=== PATIENT | male | born 1975 | race Caucasian/White ===

== ENCOUNTER 2016-11-25 13:20 | Emergency (ER) | payer OTHER ==
[~2016-11-25] VITALS: Ht 152.4 cm; Wt 56.7 kg
[~2016-11-25 13:20] MED LIST: DOCU100T5 PO; FERR-36 PO; LEVE10007 PO; OXCA300T3 PO; POLY255P PO; RANI150T2 PO; SENN-79 PO; [UNRECOGNIZED DRUG - CODE] PO
[2016-11-25 14:17] VITALS: BP 107/67
--- NOTE | 2016-11-25 14:23 | RAD ---
3 view right shoulder radiographs 11/25/2016 Clinical history: Right shoulder pain. Unknown injury. AP internal and external rotation and transscapular digital radiographs of the right shoulder were obtained. There is diffuse osteopenia of the visualized bony structures. No fracture or dislocation of the right shoulder is seen. Acute slightly comminuted fracture of the mid/distal diaphysis of the right clavicle is seen. The right AC joint is intact. The proximal fracture fragment is mildly displaced inferiorly. No additional fracture is seen. Impression: Acute fracture of the right clavicle as outlined above.
[2016-11-25] MEDS ORDERED: HYDROcodone/APAP 5/325MG 1 TAB TABLET PO ONE (14:30)
[2016-11-25] MEDS ORDERED: HYDR-971 PO (15:18)
--- NOTE | 2016-11-25 15:19 | PHYS DOC ---
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 Patient is not verbal. Review of Systems Review of Systems Constitutional: Denies fever or chills [] Musculoskeletal: right shoulder pain Integument: Denies rash or skin lesions [] Neurologic: Denies headache, focal weakness or sensory changes [] Current Medications Current Medications Current Medications Medications (Trade) Dose Ordered Sig/Mynor Start Time Stop Time Status Last Admin Dose Admin Acetaminophen/ Hydrocodone Bitart (Lortab 5/325) 1 tab 1X ONCE 11/25/16 14:30 11/25/16 14:31 DC 11/25/16 14:30 1 TAB Allergies Allergies Allergies Coded Allergies Type Severity Reaction Last Updated Verified No Known Drug Allergies 01/10/14 No Physical Exam Physical Exam Constitutional: Well developed, well nourished, no acute distress, non-toxic appearance. [] Skin: Warm, dry, no erythema, no rash. [] Back: No tenderness, no CVA tenderness. [] Extremities: Right shoulder appears obviously deformed. Patient is leaning over the right shoulder. Patient is also deformed naturally on the right upper extremity making the exam difficult. Neurovascular exam is normal to the right upper extremity. Cap refill less than 2 seconds the right fingers Neurologic: Alert and oriented X 3, normal motor function, normal sensory function, no focal deficits noted. [] Psychologic: Affect normal, judgement normal, mood normal. [] Current Patient Data Vital Signs Vital Signs Date Time Temp Pulse Resp B/P (MAP) Pulse Ox O2 Delivery O2 Flow Rate FiO2 11/25/16 14:17 98.3 90 20 97 Room Air 98.3 EKG EKG [] Radiology/Procedures Radiology/Procedures []PROCEDURE: SHOULDER 2+V RIGHT 3 view right shoulder radiographs 11/25/2016 Clinical history: Right shoulder pain. Unknown injury. AP internal and external rotation and transscapular digital radiographs of the right shoulder were obtained. There is diffuse osteopenia of the visualized bony structures. No fracture or dislocation of the right shoulder is seen. Acute slightly comminuted fracture of the mid/distal diaphysis of the right clavicle is seen. The right AC joint is intact. The proximal fracture fragment is mildly displaced inferiorly. No additional fracture is seen. Impression: Acute fracture of the right clavicle as outlined above. DICTATED and SIGNED BY: EDNA ESPINO MD DATE: 11/25/16 1413 CC: YVETTE WYNN APRN; NON,STAFF; ROBERTH HOYT MD ~ Course & Med Decision Making Course & Med Decision Making Pertinent Labs and Imaging studies reviewed. (See chart for details) Patient is in the ED with right shoulder pain from a senior living. It's unknown how he injured himself. Right shoulder x-rays interpreted by radiologist were noted for acute fracture of the right clavicle. Patient was placed in a sling. Instructed the caregiver to contact the orthopedic doctor tomorrow morning and set up a follow-up appointment. Discharged with [place]. López Disclaimer Dragon Disclaimer This electronic medical record was generated, in whole or in part, using a voice recognition dictation system. Departure Departure Impression: Primary Impression: Right clavicle fracture Disposition: HOME, SELF-CARE Condition: STABLE Referrals: ROBERTH HOYT MD (PCP) LAMBERTO SHEARER MD call him tomorrow and follow up Patient Instructions: Clavicle Fracture Additional Instructions: Phil has right clavicle fracture. Contact the provided orthopedic doctor tomorrow morning and set up a follow-up appointment for pain. You can ice and elevate the affected extremity as tolerated. Give him the prescribed pain medicine as ordered and needed for pain Scripts Hydrocodone/Apap 5-325 (NORCO 5-325 TABLET) 1 Each Tablet 1 TAB PO Q6HRS Y for PAIN, #20 TAB Prov: YVETTE WYNN APRN 11/25/16 Problem Qualifiers Primary Impression: Right clavicle fracture Encounter type: initial encounter Clavicle location: lateral end Fracture type: closed Fracture alignment: displaced Qualified Codes: S42.031A - Displaced fracture of lateral end of right clavicle, initial encounter for closed fracture YVETTE WYNN APRN Nov 25, 2016 15:18
== END 2016-11-25 15:28 | disposition home or self-care (01) ==
LOC: ER 13:20
DX: S42.031A Displaced fracture of lateral end of right clavicle, initial encounter for closed fracture (principal); G80.9 Cerebral palsy, unspecified; Z98.2 Presence of cerebrospinal fluid drainage device; X58.XXXA Exposure to other specified factors, initial encounter; Y93.89 Activity, other specified; Y92.89 Other specified places as the place of occurrence of the external cause; Y99.8 Other external cause status
CPT/HCPCS: 73030; 99284

== ENCOUNTER 2016-12-11 17:33 | Emergency (ER) | payer OTHER ==
[~2016-12-11] VITALS: Ht 154.9 cm; Wt 68.0 kg
[~2016-12-11 17:33] MED LIST changes: +HYDR-971 PO
--- NOTE | 2016-12-11 18:49 | PHYS DOC ---
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 Patient's care provider states he may have slid out. The patient did not appear to be in distress pain or discomfort. However, the patient was treated in the emergency department 2 weeks ago for clavicle fracture. History is limited due to the patient's verbal and cognitive impairment.[] Review of Systems Review of Systems Review symptoms as per history of present illness. Allergies Allergies Allergies Coded Allergies Type Severity Reaction Last Updated Verified No Known Drug Allergies 01/10/14 No Physical Exam Physical Exam Constitutional: No acute distress, quadraparesis with flexion contractures of all 4 extremities. [] HENT: Normocephalic, atraumatic, bilateral external ears normal, oropharynx moist, no oral exudates, nose normal. [] Eyes: PERRL. [] Neck: Normal range of motion. [] Cardiovascular:Heart rate regular rhythm. [] Lungs & Thorax: Patient's nonlabored, respirations are to auscultation bilaterally, no rales or wheezing, R lateral clavicle tenderness, no obvious displaced fracture, [] Abdomen: Bowel sounds normal, soft, no tenderness. [] Skin: Warm, dry. [] Extremities: Left and contractures, no deformities, swelling or bruising noted.[ ] Neurologic: Alert, quadriparesis. [] Current Patient Data Vital Signs Vital Signs Date Time Temp Pulse Resp B/P (MAP) Pulse Ox O2 Delivery O2 Flow Rate FiO2 12/11/16 18:08 97.5 57 18 112/59 (76) 97 Room Air 97.5 EKG EKG [] Radiology/Procedures Radiology/Procedures [Chest x-ray: Displaced right lateral clavicle fracture. No pneumothorax on preliminary ED read. Course & Med Decision Making Course & Med Decision Making Pertinent Labs and Imaging studies reviewed. (See chart for details) [No acute injury. Home safety instructions reviewed. ] Dragon Disclaimer Dragon Disclaimer This electronic medical record was generated, in whole or in part, using a voice recognition dictation system. Departure Departure Impression: Primary Impression: Right clavicle fracture Disposition: 01 HOME, SELF-CARE Condition: GOOD Referrals: ROBERTH HOYT MD (PCP) Patient Instructions: Clavicle Fracture Additional Instructions: No new injury was found on xray. A previously identified right clavicle fracture was present. Please follow up with your PCP as needed. Return to the ED if new or worsening symptoms. IVANNA GUADALUPE DO Dec 11, 2016 18:49
[2016-12-11 20:38] VITALS: BP 113/55
--- NOTE | 2016-12-12 08:34 | RAD ---
Portable chest, 12/11/2016: History: Fall, chest wall pain Comparison is made to a study from 01/10/2014. There is a tubing overlying the left side of the chest, probably representing a SUPER[employer] shunt tube. Clinical correlation is suggested. There is a moderate thoracolumbar scoliosis. The heart size and pulmonary vascularity are normal. A density at the cardiac apex is probably due to an epicardial fat pad. No acute infiltrate is seen. There is no evidence of pleural fluid or pneumothorax. There is a recent fracture of the distal right clavicle, not present on the previous study. The fracture is mildly displaced. IMPRESSION: 1. No acute cardiopulmonary abnormality is detected. 2. Recent right clavicular fracture. Note: The findings were called to personnel in the [facility] ER at 8:30 AM on 12/12/2016.
== END 2016-12-11 20:38 | disposition home or self-care (01) ==
LOC: ER 17:33
DX: S42.001A Fracture of unspecified part of right clavicle, initial encounter for closed fracture (principal); W05.0XXA Fall from non-moving wheelchair, initial encounter; Y93.89 Activity, other specified; Y92.89 Other specified places as the place of occurrence of the external cause; Y99.8 Other external cause status
CPT/HCPCS: 71010; 99284

== ENCOUNTER 2017-03-21 14:18 | Emergency (ER) | payer OTHER ==
[2017-03-21 14:43] LABS: ADD MAN DIFF? NO
[2017-03-21 14:47] LABS: BASO % 0 % (0-3); EOS % 0 % (0-3); HEMATOCRIT 40.7 % (39.0-53.0); HEMOGLOBIN 13.7 g/dL (13.0-17.5); LYMPH # 0.6 x10^3/uL (1.0-4.8); LYMPH % 7 % (24-48); MEAN CORPUSCULAR HEMOGLOBIN 31 pg (25-35); MEAN CORPUSCULAR HGB CONC 34 g/dL (31-37); MEAN CORPUSCULAR VOLUME 91 fL (79-100); MONO # 0.9 x10^3/uL (0.0-1.1); MONO % 11 % (0-9); NEUT # 6.8 x10^3uL (1.8-7.7); NEUT % 82 % (31-73); PLATELET COUNT 150 x10^3/uL (140-400); RED BLOOD COUNT 4.48 x10^6/uL (4.30-5.70); RED CELL DISTRIBUTION WIDTH 13.6 % (11.5-14.5); WHITE BLOOD COUNT 8.4 x10^3/uL (4.0-11.0)
[2017-03-21 15:04] LABS: ANION GAP 11 (6-14); BLOOD UREA NITROGEN 24 mg/dL (8-26); BUN/CREATININE RATIO 22 (6-20); CALCIUM 8.8 mg/dL (8.5-10.1); CARBON DIOXIDE 29 mmol/L (21-32); CHLORIDE 108 mmol/L (98-107); CREATININE 1.1 mg/dL (0.7-1.3); GFR 74.5; GLUCOSE 144 mg/dL (70-99); POTASSIUM 3.5 mmol/L (3.5-5.1); SODIUM 148 mmol/L (136-145)
[2017-03-21 15:08] LABS: ALBUMIN 3.6 g/dL (3.4-5.0); ALK PHOS 83 U/L (46-116); ALT (SGPT) 23 U/L (16-63); AST (SGOT) 16 U/L (15-37); LIPASE 46 U/L (73-393); TOTAL BILIRUBIN 0.3 mg/dL (0.2-1.0); TOTAL PROTEIN 7.1 g/dL (6.4-8.2)
[2017-03-21 15:13] LABS: BILIRUBIN,URINE MODERATE (NEG); CLARITY,URINE CLEAR; COLOR,URINE AMBER; GLUCOSE,URINE NEGATIVE (NEG); NITRITE,URINE NEGATIVE (NEG); PH,URINE 5.5; PROTEIN,URINE 100 mg/dL (NEG-TRACE)
[2017-03-21 15:25] LABS: FECAL OB PT NEGATIVE (NEG); NEG OBC FOB NEG; POS OBC FOB POS
[2017-03-21 15:33] LABS: BACTERIA,URINE 0 /HPF (0-FEW); RBC,URINE 0 /HPF (0-2)
[2017-03-21 15:34] LABS: HYALINE CASTS, URINE OCCASIONAL /HPF; SQUAMOUS EPITHELIAL CELL,UR OCC /LPF
[2017-03-21] MEDS: ONDANSETRON PF 4 MG/2 ML VIAL. IV (15:47)
[2017-03-21] MEDS: IV NORMAL SALINE 1000ML BAG 1,000 ML IV (15:48)
[2017-03-21] MEDS: FAMOTIDINE 20 MG/2 ML VIAL IVP (15:48)
[2017-03-21] MEDS: PANTOPRAZOLE IV PUSH 40 MG VIAL. IVP (15:48)
[2017-03-21] MEDS: DOXYCYCLINE HYCLATE 100 MG TABLET PO (17:19)
== END 2017-03-21 17:39 | disposition home or self-care (01) ==
LOC: ER 14:18
DX: N39.0 Urinary tract infection, site not specified (principal); E87.0 Hyperosmolality and hypernatremia; E86.0 Dehydration; K56.41 Fecal impaction; J18.9 Pneumonia, unspecified organism; G40.909 Epilepsy, unspecified, not intractable, without status epilepticus
CPT/HCPCS: 36415; 74022; 80053; 81001; 82274; 83690; 85025; 87086; 96361; 96374; 96375; 99285-25; C9113; J2405; J7030; S0028

== ENCOUNTER 2019-07-30 18:47 | Inpatient (IN) | payer MEDICAID ==
[~2019-07-30] VITALS: Ht 154.9 cm; Wt 56.8 kg
[~2019-07-30 18:47] MED LIST changes: +DOXY100C2 PO; +HYDR-3164 PO; -HYDR-971 PO; +LORA-434 PO; -POLY255P PO; +POLY255P11 PO; +SENN-182 PO; -SENN-79 PO
[2019-07-30] MEDS ORDERED: IV NORMAL SALINE 1000ML BAG 1,000 ML IV ONE (20:15)
[2019-07-30] MEDS ORDERED: ONDANSETRON PF 4 MG/2 ML VIAL. IV ONE (20:15)
[2019-07-30] MEDS ORDERED: FAMOTIDINE 20 MG/2 ML VIAL IVP ONE (20:15)
[2019-07-30 20:33] LABS: BASO % 0 % (0-3); EOS % 0 % (0-3); HEMATOCRIT 47.8 % (39.0-53.0); LYMPH # 0.9 x10^3/uL (1.0-4.8); LYMPH % 8 % (24-48); MEAN CORPUSCULAR HEMOGLOBIN 30 pg (25-35); MEAN CORPUSCULAR HGB CONC 34 g/dL (31-37); MEAN CORPUSCULAR VOLUME 88 fL (79-100); MONO # 0.8 x10^3/uL (0.0-1.1); MONO % 7 % (0-9); NEUT # 9.9 x10^3/uL (1.8-7.7); NEUT % 85 % (31-73); PLATELET COUNT 253 x10^3/uL (140-400); RED BLOOD COUNT 5.42 x10^6/uL (4.30-5.70); RED CELL DISTRIBUTION WIDTH 14.6 % (11.5-14.5); WHITE BLOOD COUNT 11.6 x10^3/uL (4.0-11.0)
[2019-07-30 20:44] LABS: CALCIUM 9.7 mg/dL (8.5-10.1); CREATININE 1.6 mg/dL (0.7-1.3); GFR 47.9; POTASSIUM 3.9 mmol/L (3.5-5.1)
[2019-07-30 20:45] LABS: BILIRUBIN,URINE MODERATE (NEG); CLARITY,URINE CLEAR; NITRITE,URINE NEGATIVE (NEG); PROTEIN,URINE 30 mg/dL (NEG-TRACE)
[2019-07-30 20:47] LABS: COLOR,URINE YELLOW
[2019-07-30 20:51] LABS: BACTERIA,URINE 0 /HPF (0-FEW); HYALINE CASTS, URINE FEW /HPF; RBC,URINE 0 /HPF (0-2); WBC,URINE OCC /HPF (0-4)
[2019-07-30 20:59] LABS: % BANDS 27 % (0-9); % LYMPHS 10 % (24-48); % MONOS 10 % (0-10); % SEGS 53 % (35-66); ALBUMIN 4.4 g/dL (3.4-5.0); ALBUMIN/GLOBULIN RATIO 1.3 (1.0-1.7); MAGNESIUM 1.7 mg/dL (1.8-2.4); PLT ESTIMATE ADEQUATE (ADEQUATE); TOTAL BILIRUBIN 0.6 mg/dL (0.2-1.0); TOTAL PROTEIN 7.9 g/dL (6.4-8.2)
[2019-07-30 21:14] LABS: BASE EXCESS ABG 1 mmol/L (-3-3); HCO3 ABG 26 mmol/L (21-28); PCO2 ABG 42 mmHg (35-46); PO2 ABG 93 mmHg (75-108); SAT O2 ABG 97 % (92-99)
[2019-07-30 21:21] LABS: FIO2 ABG 28
[2019-07-30] MEDS ORDERED: ONDANSETRON PF 4 MG/2 ML VIAL. IV PRN (21:45)
--- NOTE | 2019-07-30 22:52 | PHYS DOC ---
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 Patient is unable to provide any history secondary to the cerebral palsy [] Review of Systems: Review of Systems: Constitutional: No reported fever [] Review of systems is otherwise unobtainable secondary to cerebral palsy Heart Score: Risk Factors: Risk Factors: DM, Current or recent (<one month) smoker, HTN, HLP, family history of CAD, obesity. Risk Scores: Score 0 - 3: 2.5% MACE over next 6 weeks - Discharge Home Score 4 - 6: 20.3% MACE over next 6 weeks - Admit for Clinical Observation Score 7 - 10: 72.7% MACE over next 6 weeks - Early Invasive Strategies Current Medications: Current Medications Medications (Trade) Dose Ordered Sig/Mynor Start Time Stop Time Status Last Admin Dose Admin Famotidine (Pepcid Vial) 20 mg 1X ONCE 07/30/19 20:15 07/30/19 20:24 DC 07/30/19 20:21 20 MG Ondansetron HCl (Zofran) 4 mg 1X ONCE 07/30/19 20:15 07/30/19 20:24 DC 07/30/19 20:21 4 MG Sodium Chloride 1,000 ml @ 1,000 mls/hr 1X ONCE 07/30/19 20:15 07/30/19 21:14 DC 07/30/19 20:15 1,000 MLS/HR Allergies: Allergies: Allergies Coded Allergies Type Severity Reaction Last Updated Verified No Known Drug Allergies 01/10/14 No Physical Exam: PE: Constitutional: Pression is frail pale contracted appears dehydrated clinically appears acutely ill. [] HENT: Normocephalic, atraumatic, bilateral external ears normal, oropharynx moist, no oral exudates, nose normal. [] Eyes: Sunken eyes. [] Neck: Normal range of motion, no tenderness, supple, no stridor. [] Cardiovascular: Tachycardic [] Lungs & Thorax: Bilateral breath sounds clear to auscultation [] Abdomen: Bowel sounds normal, soft, no tenderness, no masses, no pulsatile masses. [] Skin: Warm to touch pale. [] Back: No tenderness, no CVA tenderness. [] Extremities: No tenderness, no cyanosis, no clubbing, ROM intact, no edema. [] Neurologic: Alert and oriented X 3, normal motor function, normal sensory function, no focal deficits noted. [] Psychologic: Unable to assess. [] Current Patient Data: Labs: Laboratory Tests Test 07/30/19 19:55 07/30/19 20:14 07/30/19 20:38 White Blood Count 11.6 x10^3/uL (4.0-11.0) H Red Blood Count 5.42 x10^6/uL (4.30-5.70) Hemoglobin 16.0 g/dL (13.0-17.5) Hematocrit 47.8 % (39.0-53.0) Mean Corpuscular Volume 88 fL (79-100) Mean Corpuscular Hemoglobin 30 pg (25-35) Mean Corpuscular Hemoglobin Concent 34 g/dL (31-37) Red Cell Distribution Width 14.6 % (11.5-14.5) H Platelet Count 253 x10^3/uL (140-400) Neutrophils (%) (Auto) 85 % (31-73) H Lymphocytes (%) (Auto) 8 % (24-48) L Monocytes (%) (Auto) 7 % (0-9) Eosinophils (%) (Auto) 0 % (0-3) Basophils (%) (Auto) 0 % (0-3) Neutrophils # (Auto) 9.9 x10^3/uL (1.8-7.7) H Lymphocytes # (Auto) 0.9 x10^3/uL (1.0-4.8) L Monocytes # (Auto) 0.8 x10^3/uL (0.0-1.1) Eosinophils # (Auto) 0.0 x10^3/uL (0.0-0.7) Basophils # (Auto) 0.0 x10^3/uL (0.0-0.2) Segmented Neutrophils % 53 % (35-66) Band Neutrophils % 27 % (0-9) H Lymphocytes % 10 % (24-48) L Monocytes % 10 % (0-10) Platelet Estimate Adequate (ADEQUATE) Sodium Level 146 mmol/L (136-145) H Potassium Level 3.9 mmol/L (3.5-5.1) Chloride Level 101 mmol/L (98-107) Carbon Dioxide Level 33 mmol/L (21-32) H Anion Gap 12 (6-14) Blood Urea Nitrogen 27 mg/dL (8-26) H Creatinine 1.6 mg/dL (0.7-1.3) H Estimated GFR (Cockcroft-Gault) 47.9 BUN/Creatinine Ratio 17 (6-20) Glucose Level 175 mg/dL (70-99) H Calcium Level 9.7 mg/dL (8.5-10.1) Magnesium Level 1.7 mg/dL (1.8-2.4) L Total Bilirubin 0.6 mg/dL (0.2-1.0) Aspartate Amino Transferase (AST) 16 U/L (15-37) Alanine Aminotransferase (ALT) 23 U/L (16-63) Alkaline Phosphatase 128 U/L (46-116) H Creatine Kinase 58 U/L (39-308) Troponin I Quantitative < 0.017 ng/mL (0.000-0.055) Total Protein 7.9 g/dL (6.4-8.2) Albumin 4.4 g/dL (3.4-5.0) Albumin/Globulin Ratio 1.3 (1.0-1.7) Lipase 66 U/L (73-393) L O2 Saturation 97 % (92-99) Arterial Blood pH 7.41 (7.35-7.45) Arterial Blood pCO2 at Patient Temp 42 mmHg (35-46) Arterial Blood pO2 at Patient Temp 93 mmHg (75-108) Arterial Blood HCO3 26 mmol/L (21-28) Arterial Blood Base Excess 1 mmol/L (-3-3) FiO2 28 Urine Collection Type Unknown Urine Color Yellow Urine Clarity Clear Urine pH 5.0 (<5.0-8.0) Urine Specific [place] >=1.030 (1.000-1.030) Urine Protein 30 mg/dL (NEG-TRACE) Urine Glucose (UA) Negative mg/dL (NEG) Urine Ketones (Stick) 40 mg/dL (NEG) Urine Blood Negative (NEG) Urine Nitrite Negative (NEG) Urine Bilirubin Moderate (NEG) Urine Urobilinogen Dipstick 1.0 mg/dL (0.2 mg/dL) Urine Leukocyte Esterase Small (NEG) Urine RBC 0 /HPF (0-2) Urine WBC Occ /HPF (0-4) Urine Bacteria 0 /HPF (0-FEW) Urine Hyaline Casts Few /HPF Urine Mucus Marked /LPF Laboratory Tests 07/30/19 19:55 Laboratory Tests 07/30/19 19:55 Vital Signs: Vital Signs Date Time Temp Pulse Resp B/P (MAP) Pulse Ox O2 Delivery O2 Flow Rate FiO2 07/30/19 22:08 113 22 112/75 (87) 96 Room Air 07/30/19 19:18 98.2 98.2 EKG: EKG: EKG: Sinus tachycardia rate of [address]-T changes [] Radiology/Procedures: Radiology/Procedures: [] Course & Med Decision Making: Course & Med Decision Making Pertinent Labs and Imaging studies reviewed. (See chart for details) [ED course: Evaluation reveals a 43-year-old male who clinically appeared dehydrated was given IV fluids Zofran during his stay in the emergency department he did have guaiac negative stool he looked very pale clinically however his H&H was 16 and 47. We will go ahead and admit him for rehydration and correction of his sodium.] Dragon Disclaimer: Dragon Disclaimer: This electronic medical record was generated, in whole or in part, using a voice recognition dictation system. Departure Departure Impression: Primary Impression: Nausea and vomiting Qualified Codes: R11.2 - Nausea with vomiting, unspecified Additional Impressions: Hypernatremia Dehydration Disposition: ADMITTED INPATIENT Condition: GUARDED Referrals: ROBERTH HOYT MD (PCP) VISHAL MAXWELL DO July 30, 2019 22:52
[2019-07-30 23:00] VITALS: BP 110/84
--- NOTE | 2019-07-30 23:48 | HP ---
ADMIT DATE: 07/30/2019 CHIEF COMPLAINT: Nausea, vomiting, mental status change, weakness. HISTORY OF PRESENT ILLNESS: The patient is a pleasant 43-year-old male who has cerebral palsy. He lives at a senior care. They have noticed that he has been weak and not talking much, not acting himself. He is quite pale. He has been having some nausea and vomiting. Clinically, he looks like he is anemic, but to our surprise, his hemoglobin is greater than 16. However, he does seem to have gastroenteritis. We are going to admit the patient, give him antiemetics and IV fluids. PAST MEDICAL HISTORY: Cerebral palsy. ALLERGIES: None. FAMILY HISTORY: Diabetes. SOCIAL HISTORY: Lives in a senior care. Does not drink, smoke or take drugs. MEDICATIONS: Reviewed, please refer to the MRAD. REVIEW OF SYSTEMS: Unable to obtain. PHYSICAL EXAMINATION: VITALS: Within normal limits and are stable. GENERAL: No apparent distress. Alert and oriented. HEENT: Normal cephalic atraumatic, external auditory canals are patent EYES: Extraocular muscles are intact, pupils are equally round and reactive to light and accommodation MUSCULOSKELETAL: Well developed, well nourished, good range of motion ENDOCRINE: No thyromegaly was palpated LYMPHATICS: No cervical chain or axillary nodes were noted HEMATOPOIETIC: No bruising NECK: Supple, no JVD, no thyromegaly was noted. LUNGS: Clear to auscultation in all lung conley without rhonchi or wheezing. HEART: RRR, S1, S2 present. Peripheral pulses intact, no obvious murmurs were noted. ABDOMEN: Soft, nontender. Positive bowel sounds no organomegaly, normal bowel sounds. EXTREMITIES: Without any cyanosis, clubbing, or edema. Pedal pulses intact, Homans sign is negative. NEUROLOGIC: He is quite obtunded. Does not talk. PSYCHIATRIC: Normal affect, normal mood. Stable. SKIN: He is extremely pale. VASCULAR: Good capillary refill, neurovascular bundle appears to be intact. LABORATORY DATA: Hemoglobin of 16. His sodium level is 146. ASSESSMENT AND PLAN: Gastroenteritis and hypernatremia. The patient will be admitted. We will give p.r.n. antiemetics, IV fluids, home meds, DVT prophylaxis. Full code. QUINCY GREGORIO DO DR: JESUS/venus JOB#: [id number] / [id number]
[2019-07-31] VITALS (7 sets, daily range): BP systolic 96–113; BP diastolic 62–89
[2019-07-31] MEDS: IV NORMAL SALINE 1000ML BAG 1,000 ML IV SCH ×4 (01:14→18:15)
[2019-07-31 04:30] LABS: BASO % 0 % (0-3); EOS % 0 % (0-3); HEMATOCRIT 45.7 % (39.0-53.0); HEMOGLOBIN 15.4 g/dL (13.0-17.5); LYMPH # 0.4 x10^3/uL (1.0-4.8); LYMPH % 4 % (24-48); MEAN CORPUSCULAR HEMOGLOBIN 30 pg (25-35); MEAN CORPUSCULAR HGB CONC 34 g/dL (31-37); MEAN CORPUSCULAR VOLUME 88 fL (79-100); MONO # 1.3 x10^3/uL (0.0-1.1); MONO % 12 % (0-9); NEUT % 84 % (31-73); PLATELET COUNT 210 x10^3/uL (140-400); RED BLOOD COUNT 5.17 x10^6/uL (4.30-5.70); RED CELL DISTRIBUTION WIDTH 14.8 % (11.5-14.5); WHITE BLOOD COUNT 10.7 x10^3/uL (4.0-11.0)
[2019-07-31 05:10] LABS: ALBUMIN 3.8 g/dL (3.4-5.0); CALCIUM 8.9 mg/dL (8.5-10.1); CREATININE 1.5 mg/dL (0.7-1.3); GFR 51.6; POTASSIUM 4.1 mmol/L (3.5-5.1); TOTAL BILIRUBIN 0.4 mg/dL (0.2-1.0); TOTAL PROTEIN 7.5 g/dL (6.4-8.2)
[2019-07-31 06:33] LABS: FECAL OB PT NEGATIVE (NEG)
--- NOTE | 2019-07-31 06:36 | EKG ---
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
[2019-07-31] MEDS ORDERED: ONDANSETRON PF 4 MG/2 ML VIAL. IV PRN (08:30)
[2019-07-31] MEDS ORDERED: DEXTROSE 50% 25 GM / 50ML DISP.SYRIN. IV PRN (08:30)
--- NOTE | 2019-07-31 08:33 | PDOC ---
PROGRESS NOTES Chief Complaint Chief Complaint A/P: Gastroenteritis hypernatremia Cerebral palsy Severe mental retardation Anemia Esophagitis Constipation Generalized seizure disorder - will convert to Keppra IV h/o [employer] shunt placement FEN - NPO PPX - Lovenox FULL CODE Dispo - inpatient for likely bowel obstruction History of Present Illness History of Present Illness Mr Pitt is a 43 yo M longterm SNF resident w/ PMHx Cerebral palsy, Severe mental retardation, Anemia, Esophagitis, Constipation, Generalized seizure disorder, h/o LICENSED [employer] shunt placement who presents with pallor, N/V to ED KUB with significant fecal impaction, given enema per GI had a lot of stool out, he has been vomiting. Foul-smelling emesis. CR 1.5 Vitals Vitals Vital Signs Date Time Temp Pulse Resp B/P (MAP) Pulse Ox O2 Delivery O2 Flow Rate FiO2 07/31/19 07:00 97.9 55 18 110/67 (81) 93 Room Air 97.9 Physical Exam General: Alert, Cooperative Heart: Regular rate, Normal S1, Normal S2 Lungs: Clear, Other Extremities: No clubbing, No cyanosis Skin: No rashes, No breakdown Labs LABS Laboratory Tests Test 07/30/19 19:55 07/30/19 20:14 07/30/19 20:35 07/30/19 20:38 White Blood Count 11.6 x10^3/uL (4.0-11.0) Red Blood Count 5.42 x10^6/uL (4.30-5.70) Hemoglobin 16.0 g/dL (13.0-17.5) Hematocrit 47.8 % (39.0-53.0) Mean Corpuscular Volume 88 fL (79-100) Mean Corpuscular Hemoglobin 30 pg (25-35) Mean Corpuscular Hemoglobin Concent 34 g/dL (31-37) Red Cell Distribution Width 14.6 % (11.5-14.5) Platelet Count 253 x10^3/uL (140-400) Neutrophils (%) (Auto) 85 % (31-73) Lymphocytes (%) (Auto) 8 % (24-48) Monocytes (%) (Auto) 7 % (0-9) Eosinophils (%) (Auto) 0 % (0-3) Basophils (%) (Auto) 0 % (0-3) Neutrophils # (Auto) 9.9 x10^3/uL (1.8-7.7) Lymphocytes # (Auto) 0.9 x10^3/uL (1.0-4.8) Monocytes # (Auto) 0.8 x10^3/uL (0.0-1.1) Eosinophils # (Auto) 0.0 x10^3/uL (0.0-0.7) Basophils # (Auto) 0.0 x10^3/uL (0.0-0.2) Segmented Neutrophils % 53 % (35-66) Band Neutrophils % 27 % (0-9) Lymphocytes % 10 % (24-48) Monocytes % 10 % (0-10) Platelet Estimate Adequate (ADEQUATE) Sodium Level 146 mmol/L (136-145) Potassium Level 3.9 mmol/L (3.5-5.1) Chloride Level 101 mmol/L (98-107) Carbon Dioxide Level 33 mmol/L (21-32) Anion Gap 12 (6-14) Blood Urea Nitrogen 27 mg/dL (8-26) Creatinine 1.6 mg/dL (0.7-1.3) Estimated GFR (Cockcroft-Gault) 47.9 BUN/Creatinine Ratio 17 (6-20) Glucose Level 175 mg/dL (70-99) Calcium Level 9.7 mg/dL (8.5-10.1) Magnesium Level 1.7 mg/dL (1.8-2.4) Total Bilirubin 0.6 mg/dL (0.2-1.0) Aspartate Amino Transf (AST/SGOT) 16 U/L (15-37) Alanine Aminotransferase (ALT/SGPT) 23 U/L (16-63) Alkaline Phosphatase 128 U/L (46-116) Creatine Kinase 58 U/L (39-308) Troponin I Quantitative < 0.017 ng/mL (0.000-0.055) Total Protein 7.9 g/dL (6.4-8.2) Albumin 4.4 g/dL (3.4-5.0) Albumin/Globulin Ratio 1.3 (1.0-1.7) Lipase 66 U/L (73-393) O2 Saturation 97 % (92-99) Arterial Blood pH 7.41 (7.35-7.45) Arterial Blood pCO2 at Patient Temp 42 mmHg (35-46) Arterial Blood pO2 at Patient Temp 93 mmHg (75-108) Arterial Blood HCO3 26 mmol/L (21-28) Arterial Blood Base Excess 1 mmol/L (-3-3) FiO2 28 Stool Occult Blood Negative (NEG) Urine Collection Type Unknown Urine Color Yellow Urine Clarity Clear Urine pH 5.0 (<5.0-8.0) Urine Specific [place] >=1.030 (1.000-1.030) Urine Protein 30 mg/dL (NEG-TRACE) Urine Glucose (UA) Negative mg/dL (NEG) Urine Ketones (Stick) 40 mg/dL (NEG) Urine Blood Negative (NEG) Urine Nitrite Negative (NEG) Urine Bilirubin Moderate (NEG) Urine Urobilinogen Dipstick 1.0 mg/dL (0.2 mg/dL) Urine Leukocyte Esterase Small (NEG) Urine RBC 0 /HPF (0-2) Urine WBC Occ /HPF (0-4) Urine Bacteria 0 /HPF (0-FEW) Urine Hyaline Casts Few /HPF Urine Mucus Marked /LPF Test 07/31/19 01:00 07/31/19 04:00 Troponin I Quantitative < 0.017 ng/mL (0.000-0.055) < 0.017 ng/mL (0.000-0.055) White Blood Count 10.7 x10^3/uL (4.0-11.0) Red Blood Count 5.17 x10^6/uL (4.30-5.70) Hemoglobin 15.4 g/dL (13.0-17.5) Hematocrit 45.7 % (39.0-53.0) Mean Corpuscular Volume 88 fL (79-100) Mean Corpuscular Hemoglobin 30 pg (25-35) Mean Corpuscular Hemoglobin Concent 34 g/dL (31-37) Red Cell Distribution Width 14.8 % (11.5-14.5) Platelet Count 210 x10^3/uL (140-400) Neutrophils (%) (Auto) 84 % (31-73) Lymphocytes (%) (Auto) 4 % (24-48) Monocytes (%) (Auto) 12 % (0-9) Eosinophils (%) (Auto) 0 % (0-3) Basophils (%) (Auto) 0 % (0-3) Neutrophils # (Auto) 9.0 x10^3/uL (1.8-7.7) Lymphocytes # (Auto) 0.4 x10^3/uL (1.0-4.8) Monocytes # (Auto) 1.3 x10^3/uL (0.0-1.1) Eosinophils # (Auto) 0.0 x10^3/uL (0.0-0.7) Basophils # (Auto) 0.0 x10^3/uL (0.0-0.2) Sodium Level 146 mmol/L (136-145) Potassium Level 4.1 mmol/L (3.5-5.1) Chloride Level 105 mmol/L (98-107) Carbon Dioxide Level 30 mmol/L (21-32) Anion Gap 11 (6-14) Blood Urea Nitrogen 29 mg/dL (8-26) Creatinine 1.5 mg/dL (0.7-1.3) Estimated GFR (Cockcroft-Gault) 51.6 BUN/Creatinine Ratio 19 (6-20) Glucose Level 156 mg/dL (70-99) Calcium Level 8.9 mg/dL (8.5-10.1) Total Bilirubin 0.4 mg/dL (0.2-1.0) Aspartate Amino Transf (AST/SGOT) 15 U/L (15-37) Alanine Aminotransferase (ALT/SGPT) 21 U/L (16-63) Alkaline Phosphatase 101 U/L (46-116) Total Protein 7.5 g/dL (6.4-8.2) Albumin 3.8 g/dL (3.4-5.0) Albumin/Globulin Ratio 1.0 (1.0-1.7) Assessment and Plan Assessmemt and Plan Problems Medical Problems: (1) Dehydration Status: Acute (2) Hypernatremia Status: Acute (3) Nausea and vomiting Status: Acute Comment Review of Relevant I have reviewed the following items sameer (where applicable) has been applied. Labs Laboratory Tests Test 07/30/19 19:55 07/30/19 20:14 07/30/19 20:35 07/30/19 20:38 White Blood Count 11.6 x10^3/uL (4.0-11.0) Red Blood Count 5.42 x10^6/uL (4.30-5.70) Hemoglobin 16.0 g/dL (13.0-17.5) Hematocrit 47.8 % (39.0-53.0) Mean Corpuscular Volume 88 fL (79-100) Mean Corpuscular Hemoglobin 30 pg (25-35) Mean Corpuscular Hemoglobin Concent 34 g/dL (31-37) Red Cell Distribution Width 14.6 % (11.5-14.5) Platelet Count 253 x10^3/uL (140-400) Neutrophils (%) (Auto) 85 % (31-73) Lymphocytes (%) (Auto) 8 % (24-48) Monocytes (%) (Auto) 7 % (0-9) Eosinophils (%) (Auto) 0 % (0-3) Basophils (%) (Auto) 0 % (0-3) Neutrophils # (Auto) 9.9 x10^3/uL (1.8-7.7) Lymphocytes # (Auto) 0.9 x10^3/uL (1.0-4.8) Monocytes # (Auto) 0.8 x10^3/uL (0.0-1.1) Eosinophils # (Auto) 0.0 x10^3/uL (0.0-0.7) Basophils # (Auto) 0.0 x10^3/uL (0.0-0.2) Segmented Neutrophils % 53 % (35-66) Band Neutrophils % 27 % (0-9) Lymphocytes % 10 % (24-48) Monocytes % 10 % (0-10) Platelet Estimate Adequate (ADEQUATE) Sodium Level 146 mmol/L (136-145) Potassium Level 3.9 mmol/L (3.5-5.1) Chloride Level 101 mmol/L (98-107) Carbon Dioxide Level 33 mmol/L (21-32) Anion Gap 12 (6-14) Blood Urea Nitrogen 27 mg/dL (8-26) Creatinine 1.6 mg/dL (0.7-1.3) Estimated GFR (Cockcroft-Gault) 47.9 BUN/Creatinine Ratio 17 (6-20) Glucose Level 175 mg/dL (70-99) Calcium Level 9.7 mg/dL (8.5-10.1) Magnesium Level 1.7 mg/dL (1.8-2.4) Total Bilirubin 0.6 mg/dL (0.2-1.0) Aspartate Amino Transf (AST/SGOT) 16 U/L (15-37) Alanine Aminotransferase (ALT/SGPT) 23 U/L (16-63) Alkaline Phosphatase 128 U/L (46-116) Creatine Kinase 58 U/L (39-308) Troponin I Quantitative < 0.017 ng/mL (0.000-0.055) Total Protein 7.9 g/dL (6.4-8.2) Albumin 4.4 g/dL (3.4-5.0) Albumin/Globulin Ratio 1.3 (1.0-1.7) Lipase 66 U/L (73-393) O2 Saturation 97 % (92-99) Arterial Blood pH 7.41 (7.35-7.45) Arterial Blood pCO2 at Patient Temp 42 mmHg (35-46) Arterial Blood pO2 at Patient Temp 93 mmHg (75-108) Arterial Blood HCO3 26 mmol/L (21-28) Arterial Blood Base Excess 1 mmol/L (-3-3) FiO2 28 Stool Occult Blood Negative (NEG) Urine Collection Type Unknown Urine Color Yellow Urine Clarity Clear Urine pH 5.0 (<5.0-8.0) Urine Specific [place] >=1.030 (1.000-1.030) Urine Protein 30 mg/dL (NEG-TRACE) Urine Glucose (UA) Negative mg/dL (NEG) Urine Ketones (Stick) 40 mg/dL (NEG) Urine Blood Negative (NEG) Urine Nitrite Negative (NEG) Urine Bilirubin Moderate (NEG) Urine Urobilinogen Dipstick 1.0 mg/dL (0.2 mg/dL) Urine Leukocyte Esterase Small (NEG) Urine RBC 0 /HPF (0-2) Urine WBC Occ /HPF (0-4) Urine Bacteria 0 /HPF (0-FEW) Urine Hyaline Casts Few /HPF Urine Mucus Marked /LPF Test 07/31/19 01:00 07/31/19 04:00 Troponin I Quantitative < 0.017 ng/mL (0.000-0.055) < 0.017 ng/mL (0.000-0.055) White Blood Count 10.7 x10^3/uL (4.0-11.0) Red Blood Count 5.17 x10^6/uL (4.30-5.70) Hemoglobin 15.4 g/dL (13.0-17.5) Hematocrit 45.7 % (39.0-53.0) Mean Corpuscular Volume 88 fL (79-100) Mean Corpuscular Hemoglobin 30 pg (25-35) Mean Corpuscular Hemoglobin Concent 34 g/dL (31-37) Red Cell Distribution Width 14.8 % (11.5-14.5) Platelet Count 210 x10^3/uL (140-400) Neutrophils (%) (Auto) 84 % (31-73) Lymphocytes (%) (Auto) 4 % (24-48) Monocytes (%) (Auto) 12 % (0-9) Eosinophils (%) (Auto) 0 % (0-3) Basophils (%) (Auto) 0 % (0-3) Neutrophils # (Auto) 9.0 x10^3/uL (1.8-7.7) Lymphocytes # (Auto) 0.4 x10^3/uL (1.0-4.8) Monocytes # (Auto) 1.3 x10^3/uL (0.0-1.1) Eosinophils # (Auto) 0.0 x10^3/uL (0.0-0.7) Basophils # (Auto) 0.0 x10^3/uL (0.0-0.2) Sodium Level 146 mmol/L (136-145) Potassium Level 4.1 mmol/L (3.5-5.1) Chloride Level 105 mmol/L (98-107) Carbon Dioxide Level 30 mmol/L (21-32) Anion Gap 11 (6-14) Blood Urea Nitrogen 29 mg/dL (8-26) Creatinine 1.5 mg/dL (0.7-1.3) Estimated GFR (Cockcroft-Gault) 51.6 BUN/Creatinine Ratio 19 (6-20) Glucose Level 156 mg/dL (70-99) Calcium Level 8.9 mg/dL (8.5-10.1) Total Bilirubin 0.4 mg/dL (0.2-1.0) Aspartate Amino Transf (AST/SGOT) 15 U/L (15-37) Alanine Aminotransferase (ALT/SGPT) 21 U/L (16-63) Alkaline Phosphatase 101 U/L (46-116) Total Protein 7.5 g/dL (6.4-8.2) Albumin 3.8 g/dL (3.4-5.0) Albumin/Globulin Ratio 1.0 (1.0-1.7) Laboratory Tests Test 07/30/19 19:55 07/30/19 20:14 07/30/19 20:35 07/30/19 20:38 White Blood Count 11.6 x10^3/uL (4.0-11.0) Red Blood Count 5.42 x10^6/uL (4.30-5.70) Hemoglobin 16.0 g/dL (13.0-17.5) Hematocrit 47.8 % (39.0-53.0) Mean Corpuscular Volume 88 fL (79-100) Mean Corpuscular Hemoglobin 30 pg (25-35) Mean Corpuscular Hemoglobin Concent 34 g/dL (31-37) Red Cell Distribution Width 14.6 % (11.5-14.5) Platelet Count 253 x10^3/uL (140-400) Neutrophils (%) (Auto) 85 % (31-73) Lymphocytes (%) (Auto) 8 % (24-48) Monocytes (%) (Auto) 7 % (0-9) Eosinophils (%) (Auto) 0 % (0-3) Basophils (%) (Auto) 0 % (0-3) Neutrophils # (Auto) 9.9 x10^3/uL (1.8-7.7) Lymphocytes # (Auto) 0.9 x10^3/uL (1.0-4.8) Monocytes # (Auto) 0.8 x10^3/uL (0.0-1.1) Eosinophils # (Auto) 0.0 x10^3/uL (0.0-0.7) Basophils # (Auto) 0.0 x10^3/uL (0.0-0.2) Segmented Neutrophils % 53 % (35-66) Band Neutrophils % 27 % (0-9) Lymphocytes % 10 % (24-48) Monocytes % 10 % (0-10) Platelet Estimate Adequate (ADEQUATE) Sodium Level 146 mmol/L (136-145) Potassium Level 3.9 mmol/L (3.5-5.1) Chloride Level 101 mmol/L (98-107) Carbon Dioxide Level 33 mmol/L (21-32) Anion Gap 12 (6-14) Blood Urea Nitrogen 27 mg/dL (8-26) Creatinine 1.6 mg/dL (0.7-1.3) Estimated GFR (Cockcroft-Gault) 47.9 BUN/Creatinine Ratio 17 (6-20) Glucose Level 175 mg/dL (70-99) Calcium Level 9.7 mg/dL (8.5-10.1) Magnesium Level 1.7 mg/dL (1.8-2.4) Total Bilirubin 0.6 mg/dL (0.2-1.0) Aspartate Amino Transf (AST/SGOT) 16 U/L (15-37) Alanine Aminotransferase (ALT/SGPT) 23 U/L (16-63) Alkaline Phosphatase 128 U/L (46-116) Creatine Kinase 58 U/L (39-308) Troponin I Quantitative < 0.017 ng/mL (0.000-0.055) Total Protein 7.9 g/dL (6.4-8.2) Albumin 4.4 g/dL (3.4-5.0) Albumin/Globulin Ratio 1.3 (1.0-1.7) Lipase 66 U/L (73-393) O2 Saturation 97 % (92-99) Arterial Blood pH 7.41 (7.35-7.45) Arterial Blood pCO2 at Patient Temp 42 mmHg (35-46) Arterial Blood pO2 at Patient Temp 93 mmHg (75-108) Arterial Blood HCO3 26 mmol/L (21-28) Arterial Blood Base Excess 1 mmol/L (-3-3) FiO2 28 Stool Occult Blood Negative (NEG) Urine Collection Type Unknown Urine Color Yellow Urine Clarity Clear Urine pH 5.0 (<5.0-8.0) Urine Specific [place] >=1.030 (1.000-1.030) Urine Protein 30 mg/dL (NEG-TRACE) Urine Glucose (UA) Negative mg/dL (NEG) Urine Ketones (Stick) 40 mg/dL (NEG) Urine Blood Negative (NEG) Urine Nitrite Negative (NEG) Urine Bilirubin Moderate (NEG) Urine Urobilinogen Dipstick 1.0 mg/dL (0.2 mg/dL) Urine Leukocyte Esterase Small (NEG) Urine RBC 0 /HPF (0-2) Urine WBC Occ /HPF (0-4) Urine Bacteria 0 /HPF (0-FEW) Urine Hyaline Casts Few /HPF Urine Mucus Marked /LPF Test 07/31/19 01:00 07/31/19 04:00 Troponin I Quantitative < 0.017 ng/mL (0.000-0.055) < 0.017 ng/mL (0.000-0.055) White Blood Count 10.7 x10^3/uL (4.0-11.0) Red Blood Count 5.17 x10^6/uL (4.30-5.70) Hemoglobin 15.4 g/dL (13.0-17.5) Hematocrit 45.7 % (39.0-53.0) Mean Corpuscular Volume 88 fL (79-100) Mean Corpuscular Hemoglobin 30 pg (25-35) Mean Corpuscular Hemoglobin Concent 34 g/dL (31-37) Red Cell Distribution Width 14.8 % (11.5-14.5) Platelet Count 210 x10^3/uL (140-400) Neutrophils (%) (Auto) 84 % (31-73) Lymphocytes (%) (Auto) 4 % (24-48) Monocytes (%) (Auto) 12 % (0-9) Eosinophils (%) (Auto) 0 % (0-3) Basophils (%) (Auto) 0 % (0-3) Neutrophils # (Auto) 9.0 x10^3/uL (1.8-7.7) Lymphocytes # (Auto) 0.4 x10^3/uL (1.0-4.8) Monocytes # (Auto) 1.3 x10^3/uL (0.0-1.1) Eosinophils # (Auto) 0.0 x10^3/uL (0.0-0.7) Basophils # (Auto) 0.0 x10^3/uL (0.0-0.2) Sodium Level 146 mmol/L (136-145) Potassium Level 4.1 mmol/L (3.5-5.1) Chloride Level 105 mmol/L (98-107) Carbon Dioxide Level 30 mmol/L (21-32) Anion Gap 11 (6-14) Blood Urea Nitrogen 29 mg/dL (8-26) Creatinine 1.5 mg/dL (0.7-1.3) Estimated GFR (Cockcroft-Gault) 51.6 BUN/Creatinine Ratio 19 (6-20) Glucose Level 156 mg/dL (70-99) Calcium Level 8.9 mg/dL (8.5-10.1) Total Bilirubin 0.4 mg/dL (0.2-1.0) Aspartate Amino Transf (AST/SGOT) 15 U/L (15-37) Alanine Aminotransferase (ALT/SGPT) 21 U/L (16-63) Alkaline Phosphatase 101 U/L (46-116) Total Protein 7.5 g/dL (6.4-8.2) Albumin 3.8 g/dL (3.4-5.0) Albumin/Globulin Ratio 1.0 (1.0-1.7) Medications Current Medications Sodium Chloride 1,000 ml @ 1,000 mls/hr 1X ONCE IV Last administered on 07/30/19at 20:15; Start 07/30/19 at 20:15; Stop 07/30/19 at 21:14; Status DC Ondansetron HCl (Zofran) 4 mg 1X ONCE IV Last administered on 07/30/19at 20:21; Start 07/30/19 at 20:15; Stop 07/30/19 at 20:24; Status DC Famotidine (Pepcid Vial) 20 mg 1X ONCE IVP Last administered on 07/30/19at 20:21; Start 07/30/19 at 20:15; Stop 07/30/19 at 20:24; Status DC Ondansetron HCl (Zofran) 4 mg PRN Q8HRS PRN IV NAUSEA/VOMITING; Start 07/30/19 at 21:45; Stop 07/31/19 at 21:44 Sodium Chloride 1,000 ml @ 150 mls/hr Q6H40M IV Last administered on 07/31/19at 05:30; Start 07/30/19 at 21:45; Stop 07/31/19 at 21:44 Pantoprazole Sodium (PROTONIX VIAL for IV PUSH) 40 mg DAILYAC IVP ; Start 07/31/19 at 07:30 Active Scripts Active Ativan (Lorazepam) 1 Mg Tablet 1 Mg PO TID PRN Doxycycline Hyclate 100 Mg Capsule 1 Cap PO BID [place] 5-325 Tablet (Acetaminophen/Hydrocodone Bitart) 1 Each Tablet 1 Tab PO Q6HRS PRN Reported Levetiracetam 1,000 Mg Tablet 1,000 Mg PO BID Iron (Ferrous Sulfate) 325 Mg Tablet 325 Mg PO WEEKLY Docusate Sodium 100 Mg Tablet 100 Mg PO HS Tranxene T-Tab (Clorazepate Dipotassium) 3.75 Mg Tablet 3.75 Mg PO HS Senna (Sennosides) 8.6 Mg Tablet 8.6 Mg PO BID Ranitidine Hcl 150 Mg Tablet 150 Mg PO DAILY Trileptal (Oxcarbazepine) 300 Mg Tablet 600 Mg PO BID Polyethylene Glycol 3350 255 Gm Powder 17 Gm PO DAILY Vitals/I & O Vital Sign - Last 24 Hours 07/30/19 07/30/19 07/30/19 07/30/19 19:18 20:08 21:08 22:08 Temp 98.2 98.2 Pulse 106 117 107 113 Resp 16 24 20 22 B/P (MAP) 138/109 (119) 97/62 (74) 109/70 (83) 112/75 (87) Pulse Ox 89 96 96 96 O2 Delivery Room Air Room Air Room Air Room Air 07/30/19 07/30/19 07/31/19 07/31/19 23:00 23:00 01:08 03:22 Temp 99.8 99.8 97.9 99.8 99.8 97.9 Pulse 106 106 102 Resp 18 18 17 B/P (MAP) 110/84 (93) 110/84 (93) 113/89 (97) Pulse Ox 93 93 93 O2 Delivery Room Air Room Air Room Air Room Air 07/31/19 07:00 Temp 97.9 97.9 Pulse 55 Resp 18 B/P (MAP) 110/67 (81) Pulse Ox 93 O2 Delivery Room Air Intake and Output 07/30/19 07/30/19 07/31/19 15:00 23:00 07:00 Intake Total 0 ml Balance 0 ml SHAQUILLE GUILLORY MD July 31, 2019 08:33
[2019-07-31] MEDS ORDERED: LORazepam 1 MG TABLET PO PRN (08:45)
[2019-07-31] MEDS: ENOXAPARIN 40 MG/0.4 ML SYRINGE. SQ SCH (08:51)
[2019-07-31] MEDS: PANTOPRAZOLE IV PUSH 40 MG VIAL. IVP SCH (08:51)
[2019-07-31] MEDS: POLYETHYLENE GLYCOL 3350 17 GM PACKET. PO SCH (08:51)
[2019-07-31] MEDS: OXcarbazepine 300 MG TABLET PO SCH ×2 (09:00→21:00)
[2019-07-31] MEDS ORDERED: MAGNESIUM SULFATE 1GM 100 ML IV ONE (09:00)
--- NOTE | 2019-07-31 09:10 | PDOC2 ---
GI CONSULT Reason For Consult: GI bleed HPI: HPI: 43 y/o male admitted through ER. Their notes indicate his caregiver reported n/v, diarrhea, and lethargy. Notes also indicate he had a soft brown stool in ER. No meaningful history from patient. Summary list includes ranitidine, iron, Miralax, and Senna. Reviewed past imaging - h/o fecal impaction. D/w nurse - "projectile coffee-ground emesis" early this morning. PMH: PMH: per chart - epilepsy, cerebral palsy, MR, [employer] shunt FH: Family History: Other (unable to obtain) ROS: Unable to obtain Vitals: Vitals: Vital Signs Date Time Temp Pulse Resp B/P (MAP) Pulse Ox O2 Delivery O2 Flow Rate FiO2 07/31/19 07:00 97.9 55 18 110/67 (81) 93 Room Air 97.9 Labs: Labs: Laboratory Tests Test 07/30/19 19:55 07/30/19 20:14 07/30/19 20:35 07/30/19 20:38 White Blood Count 11.6 x10^3/uL (4.0-11.0) Red Blood Count 5.42 x10^6/uL (4.30-5.70) Hemoglobin 16.0 g/dL (13.0-17.5) Hematocrit 47.8 % (39.0-53.0) Mean Corpuscular Volume 88 fL (79-100) Mean Corpuscular Hemoglobin 30 pg (25-35) Mean Corpuscular Hemoglobin Concent 34 g/dL (31-37) Red Cell Distribution Width 14.6 % (11.5-14.5) Platelet Count 253 x10^3/uL (140-400) Neutrophils (%) (Auto) 85 % (31-73) Lymphocytes (%) (Auto) 8 % (24-48) Monocytes (%) (Auto) 7 % (0-9) Eosinophils (%) (Auto) 0 % (0-3) Basophils (%) (Auto) 0 % (0-3) Neutrophils # (Auto) 9.9 x10^3/uL (1.8-7.7) Lymphocytes # (Auto) 0.9 x10^3/uL (1.0-4.8) Monocytes # (Auto) 0.8 x10^3/uL (0.0-1.1) Eosinophils # (Auto) 0.0 x10^3/uL (0.0-0.7) Basophils # (Auto) 0.0 x10^3/uL (0.0-0.2) Segmented Neutrophils % 53 % (35-66) Band Neutrophils % 27 % (0-9) Lymphocytes % 10 % (24-48) Monocytes % 10 % (0-10) Platelet Estimate Adequate (ADEQUATE) Sodium Level 146 mmol/L (136-145) Potassium Level 3.9 mmol/L (3.5-5.1) Chloride Level 101 mmol/L (98-107) Carbon Dioxide Level 33 mmol/L (21-32) Anion Gap 12 (6-14) Blood Urea Nitrogen 27 mg/dL (8-26) Creatinine 1.6 mg/dL (0.7-1.3) Estimated GFR (Cockcroft-Gault) 47.9 BUN/Creatinine Ratio 17 (6-20) Glucose Level 175 mg/dL (70-99) Calcium Level 9.7 mg/dL (8.5-10.1) Magnesium Level 1.7 mg/dL (1.8-2.4) Total Bilirubin 0.6 mg/dL (0.2-1.0) Aspartate Amino Transf (AST/SGOT) 16 U/L (15-37) Alanine Aminotransferase (ALT/SGPT) 23 U/L (16-63) Alkaline Phosphatase 128 U/L (46-116) Creatine Kinase 58 U/L (39-308) Troponin I Quantitative < 0.017 ng/mL (0.000-0.055) Total Protein 7.9 g/dL (6.4-8.2) Albumin 4.4 g/dL (3.4-5.0) Albumin/Globulin Ratio 1.3 (1.0-1.7) Lipase 66 U/L (73-393) O2 Saturation 97 % (92-99) Arterial Blood pH 7.41 (7.35-7.45) Arterial Blood pCO2 at Patient Temp 42 mmHg (35-46) Arterial Blood pO2 at Patient Temp 93 mmHg (75-108) Arterial Blood HCO3 26 mmol/L (21-28) Arterial Blood Base Excess 1 mmol/L (-3-3) FiO2 28 Stool Occult Blood Negative (NEG) Urine Collection Type Unknown Urine Color Yellow Urine Clarity Clear Urine pH 5.0 (<5.0-8.0) Urine Specific [place] >=1.030 (1.000-1.030) Urine Protein 30 mg/dL (NEG-TRACE) Urine Glucose (UA) Negative mg/dL (NEG) Urine Ketones (Stick) 40 mg/dL (NEG) Urine Blood Negative (NEG) Urine Nitrite Negative (NEG) Urine Bilirubin Moderate (NEG) Urine Urobilinogen Dipstick 1.0 mg/dL (0.2 mg/dL) Urine Leukocyte Esterase Small (NEG) Urine RBC 0 /HPF (0-2) Urine WBC Occ /HPF (0-4) Urine Bacteria 0 /HPF (0-FEW) Urine Hyaline Casts Few /HPF Urine Mucus Marked /LPF Test 07/31/19 01:00 07/31/19 04:00 Troponin I Quantitative < 0.017 ng/mL (0.000-0.055) < 0.017 ng/mL (0.000-0.055) White Blood Count 10.7 x10^3/uL (4.0-11.0) Red Blood Count 5.17 x10^6/uL (4.30-5.70) Hemoglobin 15.4 g/dL (13.0-17.5) Hematocrit 45.7 % (39.0-53.0) Mean Corpuscular Volume 88 fL (79-100) Mean Corpuscular Hemoglobin 30 pg (25-35) Mean Corpuscular Hemoglobin Concent 34 g/dL (31-37) Red Cell Distribution Width 14.8 % (11.5-14.5) Platelet Count 210 x10^3/uL (140-400) Neutrophils (%) (Auto) 84 % (31-73) Lymphocytes (%) (Auto) 4 % (24-48) Monocytes (%) (Auto) 12 % (0-9) Eosinophils (%) (Auto) 0 % (0-3) Basophils (%) (Auto) 0 % (0-3) Neutrophils # (Auto) 9.0 x10^3/uL (1.8-7.7) Lymphocytes # (Auto) 0.4 x10^3/uL (1.0-4.8) Monocytes # (Auto) 1.3 x10^3/uL (0.0-1.1) Eosinophils # (Auto) 0.0 x10^3/uL (0.0-0.7) Basophils # (Auto) 0.0 x10^3/uL (0.0-0.2) Sodium Level 146 mmol/L (136-145) Potassium Level 4.1 mmol/L (3.5-5.1) Chloride Level 105 mmol/L (98-107) Carbon Dioxide Level 30 mmol/L (21-32) Anion Gap 11 (6-14) Blood Urea Nitrogen 29 mg/dL (8-26) Creatinine 1.5 mg/dL (0.7-1.3) Estimated GFR (Cockcroft-Gault) 51.6 BUN/Creatinine Ratio 19 (6-20) Glucose Level 156 mg/dL (70-99) Calcium Level 8.9 mg/dL (8.5-10.1) Total Bilirubin 0.4 mg/dL (0.2-1.0) Aspartate Amino Transf (AST/SGOT) 15 U/L (15-37) Alanine Aminotransferase (ALT/SGPT) 21 U/L (16-63) Alkaline Phosphatase 101 U/L (46-116) Total Protein 7.5 g/dL (6.4-8.2) Albumin 3.8 g/dL (3.4-5.0) Albumin/Globulin Ratio 1.0 (1.0-1.7) Allergies: Coded Allergies: No Known Drug Allergies (Unverified , 01/10/14) Medications: Current Medications Medications (Trade) Dose Ordered Sig/Mynor Route PRN Reason Start Time Stop Time Status Last Admin Dose Admin Sodium Chloride 1,000 ml @ 1,000 mls/hr 1X ONCE IV 07/30/19 20:15 07/30/19 21:14 DC 07/30/19 20:15 Ondansetron HCl (Zofran) 4 mg 1X ONCE IV 07/30/19 20:15 07/30/19 20:24 DC 07/30/19 20:21 Famotidine (Pepcid Vial) 20 mg 1X ONCE IVP 07/30/19 20:15 07/30/19 20:24 DC 07/30/19 20:21 Sodium Chloride 1,000 ml @ 150 mls/hr [id number] IV 07/30/19 21:45 07/31/19 21:44 07/31/19 05:30 Pantoprazole Sodium (PROTONIX VIAL for IV PUSH) 40 mg DAILYAC IVP 07/31/19 07:30 07/31/19 08:51 Enoxaparin Sodium (Lovenox 40mg Syringe) 40 mg Q24H SQ 07/31/19 09:00 07/31/19 08:51 Magnesium Sulfate/ Dextrose 100 ml @ 100 mls/hr 1X ONCE IV 07/31/19 09:00 07/31/19 09:59 07/31/19 09:01 Imaging: Imaging: None. PE: GEN: hiccuping HEENT: Atraumatic LUNGS: clear anteriorly HEART: borderline tachycardic ABD: soft, non-tender, very few BS EXTREMITY: No edema, contracted SKIN: scars chest and abdomen NEURO/PSYCH: awake, mumbles A/P: A/P: Vomiting, ?diarrhea ALLA CP, MR, h/o epilepsy -- No imaging yet - start w/ abd x-ray. "Coffee-ground emesis" per assistant shift supervisor - Hgb WNL, BUN a bit elevated, Hemoccult negative - continue IV PPI, NPO, IVF. MARTA CHAND July 31, 2019 09:10
--- NOTE | 2019-07-31 09:43 | RAD ---
Supine abdomen. Vomiting, history of fecal impaction Supine view was taken of the abdomen. There are dilated loops of small bowel in the midabdomen. Stomach is mildly distended. There is a large fecal impaction at the rectum although the rest of the colon is not distended. Small bowel obstruction is possible. There is marked scoliosis. IMPRESSION: 1. Large fecal impaction at the rectum. 2. Stomach and small bowel are dilated possible obstruction. Electronically signed by: Luca Ahn MD (07/31/2019 9:40 AM) [id number]
[2019-07-31] MEDS: levETIRAcetam 1,000 MG in IV DEXTROSE 5% 100ML 100 ML IV SCH ×2 (10:09→21:11)
[2019-07-31] MEDS: INSULIN LISPRO 300 UNITS/3 ML VIAL. SQ SCH ×3 (11:30→20:56)
--- NOTE | 2019-07-31 11:51 | NUR ---
SS following for discharge planning. SS reviewed pt chart and discussed with pt RN. Pt is from [facility], , and is currently on room air. SS will continue to follow for discharge planning.
--- NOTE | 2019-07-31 13:44 | NUR ---
Patient was given his ordered enema around 1230 which was successful. However, roughly 10-15 minutes later he vomited a large amount all over himself and his bed of coffee ground emesis. Dr Dunn and CRIS Lagos notified.
[2019-07-31] MEDS ORDERED: BISACODYL 10 MG SUPP.RECT. PR PRN (14:15)
[2019-07-31] MEDS: DOCUSATE SODIUM 100 MG CAPSULE. PO SCH (21:00)
[2019-08-01 03:36] VITALS: BP 107/63
[2019-08-01 05:20] LABS: HEMATOCRIT 39.8 % (39.0-53.0); HEMOGLOBIN 13.3 g/dL (13.0-17.5)
[2019-08-01 05:25] LABS: CALCIUM 7.4 mg/dL (8.5-10.1); GFR 81.9
[2019-08-01] MEDS: INSULIN LISPRO 300 UNITS/3 ML VIAL. SQ SCH ×4 (07:30→21:00)
--- NOTE | 2019-08-01 07:33 | RAD ---
KUB History: Reason: vomiting / Spl. Instructions: / History: Technique: Supine view the abdomen. Comparison: July 31, 2019 Findings: Large amount stool within the distended rectum, unchanged. Decreased small bowel distention. Air and stool scattered throughout the imaged colon. Severe leftward curvature and rotation of the lumbar spine. Right hip dysplasia. Partially imaged catheter projecting over the upper abdomen. Impression: 1. Large amount of stool within the distended rectum, unchanged. 2. Decreased small bowel distention. Electronically signed by: Juan Yanes DO (08/01/2019 7:30 AM) [id number]
[2019-08-01 07:45] VITALS: BP 110/68
[2019-08-01] MEDS ORDERED: BISACODYL 10 MG SUPP.RECT. PR ONE (08:15)
[2019-08-01] MEDS ORDERED: BISACODYL 10 MG SUPP.RECT. PR PRN (08:15)
--- NOTE | 2019-08-01 08:15 | PDOC ---
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 Foul-smelling emesis. CR 1.5 Afebrile, tachycardic overnight. Minimal stooling after enema yesterday, CR 1.0. KUB with improved small bowel less distended, apparently in same degree of fecal impaction. He is asking for food today. Has a very large bowel movement immediately after I walk around the room. He has accidentally dislodged his IV as well. Plan: Trial on liquid diet. Cont bowel regimen Likely back to jail in next 24-48 hours Vitals Vitals Vital Signs Date Time Temp Pulse Resp B/P (MAP) Pulse Ox O2 Delivery O2 Flow Rate FiO2 08/01/19 07:45 98.7 82 18 110/68 (82) 95 Room Air 98.7 Physical Exam General: Alert, Cooperative Heart: Regular rate, Normal S1, Normal S2 Lungs: Clear, Other Extremities: No clubbing, No cyanosis Skin: No rashes, No breakdown Labs LABS Laboratory Tests Test 07/31/19 11:16 07/31/19 16:49 07/31/19 20:51 08/01/19 04:45 Glucose (Fingerstick) 155 mg/dL (70-99) 118 mg/dL (70-99) 120 mg/dL (70-99) Hemoglobin 13.3 g/dL (13.0-17.5) Hematocrit 39.8 % (39.0-53.0) Mean Corpuscular Hemoglobin Concent 34 g/dL (31-37) Sodium Level 146 mmol/L (136-145) Potassium Level 4.0 mmol/L (3.5-5.1) Chloride Level 110 mmol/L (98-107) Carbon Dioxide Level 28 mmol/L (21-32) Anion Gap 8 (6-14) Blood Urea Nitrogen 30 mg/dL (8-26) Creatinine 1.0 mg/dL (0.7-1.3) Estimated GFR (Cockcroft-Gault) 81.9 Glucose Level 105 mg/dL (70-99) Calcium Level 7.4 mg/dL (8.5-10.1) Test 08/01/19 07:35 Glucose (Fingerstick) 91 mg/dL (70-99) Assessment and Plan Assessmemt and Plan Problems Medical Problems: (1) Dehydration Status: Acute (2) Hypernatremia Status: Acute (3) Nausea and vomiting Status: Acute Comment Review of Relevant I have reviewed the following items sameer (where applicable) has been applied. Labs Laboratory Tests Test 07/30/19 19:55 07/30/19 20:14 07/30/19 20:35 07/30/19 20:38 White Blood Count 11.6 x10^3/uL (4.0-11.0) Red Blood Count 5.42 x10^6/uL (4.30-5.70) Hemoglobin 16.0 g/dL (13.0-17.5) Hematocrit 47.8 % (39.0-53.0) Mean Corpuscular Volume 88 fL (79-100) Mean Corpuscular Hemoglobin 30 pg (25-35) Mean Corpuscular Hemoglobin Concent 34 g/dL (31-37) Red Cell Distribution Width 14.6 % (11.5-14.5) Platelet Count 253 x10^3/uL (140-400) Neutrophils (%) (Auto) 85 % (31-73) Lymphocytes (%) (Auto) 8 % (24-48) Monocytes (%) (Auto) 7 % (0-9) Eosinophils (%) (Auto) 0 % (0-3) Basophils (%) (Auto) 0 % (0-3) Neutrophils # (Auto) 9.9 x10^3/uL (1.8-7.7) Lymphocytes # (Auto) 0.9 x10^3/uL (1.0-4.8) Monocytes # (Auto) 0.8 x10^3/uL (0.0-1.1) Eosinophils # (Auto) 0.0 x10^3/uL (0.0-0.7) Basophils # (Auto) 0.0 x10^3/uL (0.0-0.2) Segmented Neutrophils % 53 % (35-66) Band Neutrophils % 27 % (0-9) Lymphocytes % 10 % (24-48) Monocytes % 10 % (0-10) Platelet Estimate Adequate (ADEQUATE) Sodium Level 146 mmol/L (136-145) Potassium Level 3.9 mmol/L (3.5-5.1) Chloride Level 101 mmol/L (98-107) Carbon Dioxide Level 33 mmol/L (21-32) Anion Gap 12 (6-14) Blood Urea Nitrogen 27 mg/dL (8-26) Creatinine 1.6 mg/dL (0.7-1.3) Estimated GFR (Cockcroft-Gault) 47.9 BUN/Creatinine Ratio 17 (6-20) Glucose Level 175 mg/dL (70-99) Calcium Level 9.7 mg/dL (8.5-10.1) Magnesium Level 1.7 mg/dL (1.8-2.4) Total Bilirubin 0.6 mg/dL (0.2-1.0) Aspartate Amino Transf (AST/SGOT) 16 U/L (15-37) Alanine Aminotransferase (ALT/SGPT) 23 U/L (16-63) Alkaline Phosphatase 128 U/L (46-116) Creatine Kinase 58 U/L (39-308) Troponin I Quantitative < 0.017 ng/mL (0.000-0.055) Total Protein 7.9 g/dL (6.4-8.2) Albumin 4.4 g/dL (3.4-5.0) Albumin/Globulin Ratio 1.3 (1.0-1.7) Lipase 66 U/L (73-393) O2 Saturation 97 % (92-99) Arterial Blood pH 7.41 (7.35-7.45) Arterial Blood pCO2 at Patient Temp 42 mmHg (35-46) Arterial Blood pO2 at Patient Temp 93 mmHg (75-108) Arterial Blood HCO3 26 mmol/L (21-28) Arterial Blood Base Excess 1 mmol/L (-3-3) FiO2 28 Stool Occult Blood Negative (NEG) Urine Collection Type Unknown Urine Color Yellow Urine Clarity Clear Urine pH 5.0 (<5.0-8.0) Urine Specific [place] >=1.030 (1.000-1.030) Urine Protein 30 mg/dL (NEG-TRACE) Urine Glucose (UA) Negative mg/dL (NEG) Urine Ketones (Stick) 40 mg/dL (NEG) Urine Blood Negative (NEG) Urine Nitrite Negative (NEG) Urine Bilirubin Moderate (NEG) Urine Urobilinogen Dipstick 1.0 mg/dL (0.2 mg/dL) Urine Leukocyte Esterase Small (NEG) Urine RBC 0 /HPF (0-2) Urine WBC Occ /HPF (0-4) Urine Bacteria 0 /HPF (0-FEW) Urine Hyaline Casts Few /HPF Urine Mucus Marked /LPF Test 07/31/19 01:00 07/31/19 04:00 07/31/19 11:16 07/31/19 16:49 Troponin I Quantitative < 0.017 ng/mL (0.000-0.055) < 0.017 ng/mL (0.000-0.055) White Blood Count 10.7 x10^3/uL (4.0-11.0) Red Blood Count 5.17 x10^6/uL (4.30-5.70) Hemoglobin 15.4 g/dL (13.0-17.5) Hematocrit 45.7 % (39.0-53.0) Mean Corpuscular Volume 88 fL (79-100) Mean Corpuscular Hemoglobin 30 pg (25-35) Mean Corpuscular Hemoglobin Concent 34 g/dL (31-37) Red Cell Distribution Width 14.8 % (11.5-14.5) Platelet Count 210 x10^3/uL (140-400) Neutrophils (%) (Auto) 84 % (31-73) Lymphocytes (%) (Auto) 4 % (24-48) Monocytes (%) (Auto) 12 % (0-9) Eosinophils (%) (Auto) 0 % (0-3) Basophils (%) (Auto) 0 % (0-3) Neutrophils # (Auto) 9.0 x10^3/uL (1.8-7.7) Lymphocytes # (Auto) 0.4 x10^3/uL (1.0-4.8) Monocytes # (Auto) 1.3 x10^3/uL (0.0-1.1) Eosinophils # (Auto) 0.0 x10^3/uL (0.0-0.7) Basophils # (Auto) 0.0 x10^3/uL (0.0-0.2) Sodium Level 146 mmol/L (136-145) Potassium Level 4.1 mmol/L (3.5-5.1) Chloride Level 105 mmol/L (98-107) Carbon Dioxide Level 30 mmol/L (21-32) Anion Gap 11 (6-14) Blood Urea Nitrogen 29 mg/dL (8-26) Creatinine 1.5 mg/dL (0.7-1.3) Estimated GFR (Cockcroft-Gault) 51.6 BUN/Creatinine Ratio 19 (6-20) Glucose Level 156 mg/dL (70-99) Calcium Level 8.9 mg/dL (8.5-10.1) Total Bilirubin 0.4 mg/dL (0.2-1.0) Aspartate Amino Transf (AST/SGOT) 15 U/L (15-37) Alanine Aminotransferase (ALT/SGPT) 21 U/L (16-63) Alkaline Phosphatase 101 U/L (46-116) Total Protein 7.5 g/dL (6.4-8.2) Albumin 3.8 g/dL (3.4-5.0) Albumin/Globulin Ratio 1.0 (1.0-1.7) Glucose (Fingerstick) 155 mg/dL (70-99) 118 mg/dL (70-99) Test 07/31/19 20:51 08/01/19 04:45 08/01/19 07:35 Glucose (Fingerstick) 120 mg/dL (70-99) 91 mg/dL (70-99) Hemoglobin 13.3 g/dL (13.0-17.5) Hematocrit 39.8 % (39.0-53.0) Mean Corpuscular Hemoglobin Concent 34 g/dL (31-37) Sodium Level 146 mmol/L (136-145) Potassium Level 4.0 mmol/L (3.5-5.1) Chloride Level 110 mmol/L (98-107) Carbon Dioxide Level 28 mmol/L (21-32) Anion Gap 8 (6-14) Blood Urea Nitrogen 30 mg/dL (8-26) Creatinine 1.0 mg/dL (0.7-1.3) Estimated GFR (Cockcroft-Gault) 81.9 Glucose Level 105 mg/dL (70-99) Calcium Level 7.4 mg/dL (8.5-10.1) Laboratory Tests Test 07/31/19 11:16 07/31/19 16:49 07/31/19 20:51 08/01/19 04:45 Glucose (Fingerstick) 155 mg/dL (70-99) 118 mg/dL (70-99) 120 mg/dL (70-99) Hemoglobin 13.3 g/dL (13.0-17.5) Hematocrit 39.8 % (39.0-53.0) Mean Corpuscular Hemoglobin Concent 34 g/dL (31-37) Sodium Level 146 mmol/L (136-145) Potassium Level 4.0 mmol/L (3.5-5.1) Chloride Level 110 mmol/L (98-107) Carbon Dioxide Level 28 mmol/L (21-32) Anion Gap 8 (6-14) Blood Urea Nitrogen 30 mg/dL (8-26) Creatinine 1.0 mg/dL (0.7-1.3) Estimated GFR (Cockcroft-Gault) 81.9 Glucose Level 105 mg/dL (70-99) Calcium Level 7.4 mg/dL (8.5-10.1) Test 08/01/19 07:35 Glucose (Fingerstick) 91 mg/dL (70-99) Medications Current Medications Sodium Chloride 1,000 ml @ 1,000 mls/hr 1X ONCE IV Last administered on 07/30/19at 20:15; Start 07/30/19 at 20:15; Stop 07/30/19 at 21:14; Status DC Ondansetron HCl (Zofran) 4 mg 1X ONCE IV Last administered on 07/30/19at 20:21; Start 07/30/19 at 20:15; Stop 07/30/19 at 20:24; Status DC Famotidine (Pepcid Vial) 20 mg 1X ONCE IVP Last administered on 07/30/19at 20:21; Start 07/30/19 at 20:15; Stop 07/30/19 at 20:24; Status DC Ondansetron HCl (Zofran) 4 mg PRN Q8HRS PRN IV NAUSEA/VOMITING; Start 07/30/19 at 21:45; Stop 07/31/19 at 08:28; Status DC Sodium Chloride 1,000 ml @ 150 mls/hr Q6H40M IV Last administered on 07/31/19at 18:15; Start 07/30/19 at 21:45; Stop 07/31/19 at 21:44; Status DC Pantoprazole Sodium (PROTONIX VIAL for IV PUSH) 40 mg DAILYAC IVP Last administered on 07/31/19at 08:51; Start 07/31/19 at 07:30 Ondansetron HCl (Zofran) 4 mg PRN Q4HRS PRN IV NAUSEA/VOMITING; Start 07/31/19 at 08:30 Insulin Human Lispro (HumaLOG) 0-9 UNITS TIDACHC SQ ; Start 07/31/19 at 11:30 Dextrose (Dextrose 50%-Water Syringe) 12.5 gm PRN Q15MIN PRN IV SEE COMMENTS; Start 07/31/19 at 08:30 Levetiracetam 1000 mg/Dextrose 110 ml @ 440 mls/hr Q12HR IV Last administered on 07/31/19at 21:11; Start 07/31/19 at 09:00 Enoxaparin Sodium (Lovenox 40mg Syringe) 40 mg Q24H SQ Last administered on 07/31/19at 08:51; Start 07/31/19 at 09:00 Magnesium Sulfate/ Dextrose 100 ml @ 100 mls/hr 1X ONCE IV Last administered on 07/31/19at 09:01; Start 07/31/19 at 09:00; Stop 07/31/19 at 09:59; Status DC Lorazepam (Ativan) 1 mg PRN TID PRN PO AGITATION; Start 07/31/19 at 08:45 Oxcarbazepine (Trileptal) 600 mg BID PO ; Start 07/31/19 at 09:00 Polyethylene Glycol (miraLAX PACKET) 17 gm DAILY PO ; Start 07/31/19 at 09:00 Docusate Sodium (Colace) 100 mg QHS PO ; Start 07/31/19 at 21:00 Bisacodyl (Dulcolax Supp) 10 mg PRN DAILY PRN [place] CONSTIPATION; Start 07/31/19 at 14:15 Active Scripts Active Ativan (Lorazepam) 1 Mg Tablet 1 Mg PO TID PRN Doxycycline Hyclate 100 Mg Capsule 1 Cap PO BID [place] 5-325 Tablet (Acetaminophen/Hydrocodone Bitart) 1 Each Tablet 1 Tab PO Q6HRS PRN Reported Levetiracetam 1,000 Mg Tablet 1,000 Mg PO BID Iron (Ferrous Sulfate) 325 Mg Tablet 325 Mg PO WEEKLY Docusate Sodium 100 Mg Tablet 100 Mg PO HS Tranxene T-Tab (Clorazepate Dipotassium) 3.75 Mg Tablet 3.75 Mg PO HS Senna (Sennosides) 8.6 Mg Tablet 8.6 Mg PO BID Ranitidine Hcl 150 Mg Tablet 150 Mg PO DAILY Trileptal (Oxcarbazepine) 300 Mg Tablet 600 Mg PO BID Polyethylene Glycol 3350 255 Gm Powder 17 Gm PO DAILY Vitals/I & O Vital Sign - Last 24 Hours 07/31/19 07/31/19 07/31/19 07/31/19 10:55 15:12 19:20 20:00 Temp 98.0 98.2 98.1 98.0 98.2 98.1 Pulse 97 102 89 Resp 15 17 20 B/P (MAP) 104/72 (83) 101/62 (75) 96/67 (77) Pulse Ox 94 96 93 O2 Delivery Room Air Room Air Room Air Room Air 07/31/19 08/01/19 08/01/19 23:22 03:36 07:45 Temp 98.2 98.6 98.7 98.2 98.6 98.7 Pulse 90 73 82 Resp 20 18 18 B/P (MAP) 112/76 (88) 107/63 (78) 110/68 (82) Pulse Ox 94 94 95 O2 Delivery Room Air Room Air Room Air SHAQUILLE GUILLORY MD August 01, 2019 08:15
[2019-08-01] MEDS: POLYETHYLENE GLYCOL 3350 17 GM PACKET. PO SCH (09:00)
[2019-08-01] MEDS: OXcarbazepine 300 MG TABLET PO SCH ×2 (09:44→21:28)
[2019-08-01] MEDS: ENOXAPARIN 40 MG/0.4 ML SYRINGE. SQ SCH (09:44)
[2019-08-01] MEDS: PANTOPRAZOLE IV PUSH 40 MG VIAL. IVP SCH (09:44)
[2019-08-01] MEDS: levETIRAcetam 1,000 MG in IV DEXTROSE 5% 100ML 100 ML IV SCH ×2 (09:45→21:00)
--- NOTE | 2019-08-01 11:30 | NUR ---
At approximately 1110 hours, patient experienced a seizure for approximately a minute. Patient was cleaned up and a suppository was placed.
[2019-08-01 11:34] VITALS: BP 125/63
[2019-08-01 15:34] VITALS: BP 116/72
--- NOTE | 2019-08-01 17:00 | NUR ---
At approximately 1600 hours, patient pulled out his IV catheter. The tip was intact. There were two failed attempts for IV insertion. At approximately 1645 hours, the patient refused to allow Charge Nurse Ramona to touch his arm.
[2019-08-01 19:00] VITALS: BP 131/82
[2019-08-01] MEDS: DOCUSATE SODIUM 100 MG CAPSULE. PO SCH (21:26)
[2019-08-01 23:00] VITALS: BP 112/65
[2019-08-02 03:00] VITALS: BP 114/73
[2019-08-02 07:00] VITALS: BP 101/59
[2019-08-02] MEDS: INSULIN LISPRO 300 UNITS/3 ML VIAL. SQ SCH ×4 (07:30→21:00)
--- NOTE | 2019-08-02 08:28 | PDOC ---
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 Foul-smelling emesis. CR 1.5 07/31: Afebrile, tachycardic overnight. Minimal stooling after enema yesterday, CR 1.0. KUB with improved small bowel less distended, apparently in same degree of fecal impaction. Asking for food today. Very large bowel movement. Accidentally dislodged his IV as well. Replaced Afebrile overnight. Tolerated advancing diet well. IV replaced. No complaints, but tries to spit his meds back to nursing. Of note has some behavioral issues. Staff not available to receive discharge today Plan: Advance diet. Cont bowel regimen One last IV keppra dose Likely back to long-term in next 24-48 hours Vitals Vitals Vital Signs Date Time Temp Pulse Resp B/P (MAP) Pulse Ox O2 Delivery O2 Flow Rate FiO2 08/02/19 07:47 Room Air 08/02/19 07:00 97.7 97 16 101/59 (73) 93 97.7 Physical Exam General: Alert, Cooperative Heart: Regular rate, Normal S1, Normal S2 Lungs: Clear, Other Extremities: No clubbing, No cyanosis Skin: No rashes, No breakdown Labs LABS Laboratory Tests Test 08/01/19 11:53 08/01/19 17:00 08/01/19 19:17 08/02/19 07:22 Glucose (Fingerstick) 101 mg/dL (70-99) 94 mg/dL (70-99) 96 mg/dL (70-99) 94 mg/dL (70-99) Assessment and Plan Assessmemt and Plan Problems Medical Problems: (1) Dehydration Status: Acute (2) Hypernatremia Status: Acute (3) Nausea and vomiting Status: Acute Comment Review of Relevant I have reviewed the following items sameer (where applicable) has been applied. Labs Laboratory Tests Test 07/31/19 11:16 07/31/19 16:49 07/31/19 20:51 08/01/19 04:45 Glucose (Fingerstick) 155 mg/dL (70-99) 118 mg/dL (70-99) 120 mg/dL (70-99) Hemoglobin 13.3 g/dL (13.0-17.5) Hematocrit 39.8 % (39.0-53.0) Mean Corpuscular Hemoglobin Concent 34 g/dL (31-37) Sodium Level 146 mmol/L (136-145) Potassium Level 4.0 mmol/L (3.5-5.1) Chloride Level 110 mmol/L (98-107) Carbon Dioxide Level 28 mmol/L (21-32) Anion Gap 8 (6-14) Blood Urea Nitrogen 30 mg/dL (8-26) Creatinine 1.0 mg/dL (0.7-1.3) Estimated GFR (Cockcroft-Gault) 81.9 Glucose Level 105 mg/dL (70-99) Calcium Level 7.4 mg/dL (8.5-10.1) Test 08/01/19 07:35 08/01/19 11:53 08/01/19 17:00 08/01/19 19:17 Glucose (Fingerstick) 91 mg/dL (70-99) 101 mg/dL (70-99) 94 mg/dL (70-99) 96 mg/dL (70-99) Test 08/02/19 07:22 Glucose (Fingerstick) 94 mg/dL (70-99) Laboratory Tests Test 08/01/19 11:53 08/01/19 17:00 08/01/19 19:17 08/02/19 07:22 Glucose (Fingerstick) 101 mg/dL (70-99) 94 mg/dL (70-99) 96 mg/dL (70-99) 94 mg/dL (70-99) Microbiology 07/30/19 Urine Culture - Final, Complete Medications Current Medications Sodium Chloride 1,000 ml @ 1,000 mls/hr 1X ONCE IV Last administered on 07/30/19at 20:15; Start 07/30/19 at 20:15; Stop 07/30/19 at 21:14; Status DC Ondansetron HCl (Zofran) 4 mg 1X ONCE IV Last administered on 07/30/19at 20:21; Start 07/30/19 at 20:15; Stop 07/30/19 at 20:24; Status DC Famotidine (Pepcid Vial) 20 mg 1X ONCE IVP Last administered on 07/30/19at 20:21; Start 07/30/19 at 20:15; Stop 07/30/19 at 20:24; Status DC Ondansetron HCl (Zofran) 4 mg PRN Q8HRS PRN IV NAUSEA/VOMITING; Start 07/30/19 at 21:45; Stop 07/31/19 at 08:28; Status DC Sodium Chloride 1,000 ml @ 150 mls/hr Q6H40M IV Last administered on 07/31/19at 18:15; Start 07/30/19 at 21:45; Stop 07/31/19 at 21:44; Status DC Pantoprazole Sodium (PROTONIX VIAL for IV PUSH) 40 mg DAILYAC IVP Last administered on 08/01/19at 09:44; Start 07/31/19 at 07:30 Ondansetron HCl (Zofran) 4 mg PRN Q4HRS PRN IV NAUSEA/VOMITING; Start 07/31/19 at 08:30 Insulin Human Lispro (HumaLOG) 0-9 UNITS TIDACHC SQ ; Start 07/31/19 at 11:30 Dextrose (Dextrose 50%-Water Syringe) 12.5 gm PRN Q15MIN PRN IV SEE COMMENTS; Start 07/31/19 at 08:30 Levetiracetam 1000 mg/Dextrose 110 ml @ 440 mls/hr Q12HR IV Last administered on 08/01/19at 09:45; Start 07/31/19 at 09:00 Enoxaparin Sodium (Lovenox 40mg Syringe) 40 mg Q24H SQ Last administered on 08/01/19at 09:44; Start 07/31/19 at 09:00 Magnesium Sulfate/ Dextrose 100 ml @ 100 mls/hr 1X ONCE IV Last administered on 07/31/19at 09:01; Start 07/31/19 at 09:00; Stop 07/31/19 at 09:59; Status DC Lorazepam (Ativan) 1 mg PRN TID PRN PO AGITATION Last administered on 08/01/19at 21:26; Start 07/31/19 at 08:45 Oxcarbazepine (Trileptal) 600 mg BID PO Last administered on 08/01/19at 21:28; Start 07/31/19 at 09:00 Polyethylene Glycol (miraLAX PACKET) 17 gm DAILY PO ; Start 07/31/19 at 09:00 Docusate Sodium (Colace) 100 mg QHS PO Last administered on 08/01/19at 21:26; Start 07/31/19 at 21:00 Bisacodyl (Dulcolax Supp) 10 mg PRN DAILY PRN [place] CONSTIPATION; Start 07/31/19 at 14:15; Stop 08/01/19 at 15:56; Status DC Bisacodyl (Dulcolax Supp) 10 mg 1X ONCE [place] Last administered on 08/01/19at 11:20; Start 08/01/19 at 08:15; Stop 08/01/19 at 08:16; Status DC Bisacodyl (Dulcolax Supp) 10 mg PRN DAILY PRN [place] CONSTIPATION; Start 08/01/19 at 08:15 Active Scripts Active Ativan (Lorazepam) 1 Mg Tablet 1 Mg PO TID PRN Doxycycline Hyclate 100 Mg Capsule 1 Cap PO BID [place] 5-325 Tablet (Acetaminophen/Hydrocodone Bitart) 1 Each Tablet 1 Tab PO Q6HRS PRN Reported Levetiracetam 1,000 Mg Tablet 1,000 Mg PO BID Iron (Ferrous Sulfate) 325 Mg Tablet 325 Mg PO WEEKLY Docusate Sodium 100 Mg Tablet 100 Mg PO HS Tranxene T-Tab (Clorazepate Dipotassium) 3.75 Mg Tablet 3.75 Mg PO HS Senna (Sennosides) 8.6 Mg Tablet 8.6 Mg PO BID Ranitidine Hcl 150 Mg Tablet 150 Mg PO DAILY Trileptal (Oxcarbazepine) 300 Mg Tablet 600 Mg PO BID Polyethylene Glycol 3350 255 Gm Powder 17 Gm PO DAILY Vitals/I & O Vital Sign - Last 24 Hours 08/01/19 08/01/19 08/01/19 08/01/19 11:34 15:34 19:00 20:00 Temp 98.2 98.2 98.1 98.2 98.2 98.1 Pulse 84 86 76 Resp 18 18 18 B/P (MAP) 125/63 (83) 116/72 (87) 131/82 (98) Pulse Ox 95 97 96 O2 Delivery Room Air Room Air Room Air Room Air 08/01/19 08/02/19 08/02/19 08/02/19 23:00 03:00 07:00 07:47 Temp 98.9 98.1 97.7 98.9 98.1 97.7 Pulse 74 104 97 Resp 18 18 16 B/P (MAP) 112/65 (81) 114/73 (87) 101/59 (73) Pulse Ox 94 91 93 O2 Delivery Room Air Room Air Room Air Intake and Output 08/01/19 08/01/19 08/02/19 15:00 23:00 07:00 Intake Total 200 ml 120 ml Balance 200 ml 120 ml SHAQUILLE GUILLORY MD August 02, 2019 08:28
[2019-08-02] MEDS: PANTOPRAZOLE IV PUSH 40 MG VIAL. IVP SCH (08:50)
[2019-08-02] MEDS: OXcarbazepine 300 MG TABLET PO SCH ×3 (08:51→21:00)
[2019-08-02] MEDS: levETIRAcetam 500 MG TABLET PO SCH ×3 (08:51→21:00)
[2019-08-02] MEDS: ENOXAPARIN 40 MG/0.4 ML SYRINGE. SQ SCH (08:51)
[2019-08-02] MEDS: POLYETHYLENE GLYCOL 3350 17 GM PACKET. PO SCH (09:00)
[2019-08-02] MEDS ORDERED: levETIRAcetam 1,000 MG in IV DEXTROSE 5% 100ML 100 ML IV ONE (10:00)
[2019-08-02 11:00] VITALS: BP 102/64
--- NOTE | 2019-08-02 11:14 | SNU/HH DC ---
DISCHARGE WITH HOME HEALTH DISCHARGE INFORMATION: Discharge Date: Aug 03, 2019 Final Diagnosis: Problems Medical Problems: (1) Dehydration Status: Acute (2) Hypernatremia Status: Acute (3) Nausea and vomiting Status: Acute Condition on Discharge: Stable CODE STATUS: Code Status: Full HOME HEALTH: Face to Face: I certify this patient is under my care and that I, or a nurse practitioner or physician's benefits assistant working with me, had a face to face encounter that meets the physician face to face encounter requirements with this patient on 08/01/2019. Long Term For: Medication Management RN For Eval/Treatment: Yes Home Health Aide For: Self-care Pt Meets Homebound Status: Unsteady balance w/ amb,, Psychological condition POST DISCHARGE ORDERS: Activity Instructions for Disc: Resume previous activity, Activity as tolerated Weight Bearing Status after Di: As tolerated DIET AFTER DISCHARGE: Regular TREATMENT/EQUIPMENT ORDERS: Adaptive Equipment Issued: None CERTIFICATION STATEMENT: Certification Statement: Certification Statement: Based on the above finding, I certify that this patient is confined to the home and needs intermittent penitentiary care, physical therapy and/or speech therapy, or continues to need occupational therapy.~ This patient is under my care, and I have initiated the establishment of the plan of care.~ This patient will be followed by myself or a community physician who will periodically review the plan of care. Home Meds Active Scripts Lorazepam (ATIVAN) 1 Mg Tablet, 1 MG PO TID PRN for AGITATION, #6 TAB Prov:ALINA GUTIÉRREZ MD 04/07/19 Hydrocodone/[place] 5-325 (NORCO 5-325 TABLET) 1 Each Tablet, 1 TAB PO Q6HRS PRN for PAIN, #20 TAB Prov:YVETTE WYNN APRN 11/25/16 Reported Medications Levetiracetam (LEVETIRACETAM) 1,000 Mg Tablet, 1000 MG PO BID, TAB 01/10/14 Ferrous Sulfate (IRON) 325 Mg Tablet, 325 MG PO WEEKLY 01/10/14 Docusate Sodium (DOCUSATE SODIUM) 100 Mg Tablet, 100 MG PO HS 01/10/14 Clorazepate Dipotassium (TRANXENE T-TAB) 3.75 Mg Tablet, 3.75 MG PO HS 01/10/14 Sennosides (SENNA) 8.6 Mg Tablet, 8.6 MG PO BID 01/10/14 Ranitidine Hcl (RANITIDINE HCL) 150 Mg Tablet, 150 MG PO DAILY, TAB 01/10/14 Oxcarbazepine (TRILEPTAL) 300 Mg Tablet, 600 MG PO BID, #60 TAB 1 Refill 01/10/14 Polyethylene Glycol 3350 (POLYETHYLENE GLYCOL 3350) 255 Gm Powder, 17 GM PO DAILY, #527 GM 01/10/14 Discontinued Scripts Doxycycline Hyclate (DOXYCYCLINE HYCLATE) 100 Mg Capsule, 1 CAP PO BID, #20 CAP Prov:WILLIAM MAXWELL MD 03/21/17 SHAQUILLE GUILLORY MD August 02, 2019 11:14
[2019-08-02 15:00] VITALS: BP 110/72
[2019-08-02 19:00] VITALS: BP 91/57
[2019-08-02] MEDS: DOCUSATE SODIUM 100 MG CAPSULE. PO SCH (21:00)
[2019-08-02 23:00] VITALS: BP 113/57
[2019-08-03 03:00] VITALS: BP 104/61
[2019-08-03 07:00] VITALS: BP 112/66
[2019-08-03 07:15] LABS: ALBUMIN 2.8 g/dL (3.4-5.0); CALCIUM 7.7 mg/dL (8.5-10.1); CREATININE 0.9 mg/dL (0.7-1.3); GFR 92.5; POTASSIUM 3.6 mmol/L (3.5-5.1); TOTAL BILIRUBIN 0.5 mg/dL (0.2-1.0); TOTAL PROTEIN 5.5 g/dL (6.4-8.2)
[2019-08-03] MEDS: INSULIN LISPRO 300 UNITS/3 ML VIAL. SQ SCH ×4 (07:30→21:00)
--- NOTE | 2019-08-03 08:00 | NUR ---
0730 BG - Pt refused to have BG checked, non-admin insulin as BG can not be determined. Addendum: 08/03/19 at 1247 by URVASHI CADET RN RN 1130 BG - Pt refused to have BG checked. Will continue to monitor.
[2019-08-03] MEDS: ENOXAPARIN 40 MG/0.4 ML SYRINGE. SQ SCH ×2 (09:00→09:57)
[2019-08-03] MEDS: levETIRAcetam 500 MG TABLET PO SCH ×3 (09:00→20:38)
[2019-08-03] MEDS: OXcarbazepine 300 MG TABLET PO SCH ×3 (09:00→20:38)
[2019-08-03] MEDS: POLYETHYLENE GLYCOL 3350 17 GM PACKET. PO SCH ×2 (09:00→09:56)
[2019-08-03] MEDS: PANTOPRAZOLE IV PUSH 40 MG VIAL. IVP SCH (09:57)
--- NOTE | 2019-08-03 10:08 | PDOC ---
Objective: Objective: D/w nurse - refused meds yesterday. Stool charted today. Tmax 100. Reviewed chart - tolerated advancing diet yesterday, spit meds at nursing, unable to DC. Vital Signs: Vital Signs Date Time Temp Pulse Resp B/P (MAP) Pulse Ox O2 Delivery O2 Flow Rate FiO2 08/03/19 07:00 100.0 95 17 112/66 (81) 94 Room Air 100.0 Labs: Laboratory Tests Test 08/02/19 11:39 08/02/19 16:47 08/02/19 21:11 08/03/19 06:05 Glucose (Fingerstick) 91 mg/dL 101 mg/dL 79 mg/dL Sodium Level 147 mmol/L Potassium Level 3.6 mmol/L Chloride Level 109 mmol/L Carbon Dioxide Level 24 mmol/L Anion Gap 14 Blood Urea Nitrogen 16 mg/dL Creatinine 0.9 mg/dL Estimated GFR (Cockcroft-Gault) 92.5 BUN/Creatinine Ratio 18 Glucose Level 84 mg/dL Calcium Level 7.7 mg/dL Total Bilirubin 0.5 mg/dL Aspartate Amino Transf (AST/SGOT) 15 U/L Alanine Aminotransferase (ALT/SGPT) 18 U/L Alkaline Phosphatase 65 U/L Total Protein 5.5 g/dL Albumin 2.8 g/dL Albumin/Globulin Ratio 1.0 Imaging: [facility] 07/31 Impression: 1. Large amount of stool within the distended rectum, unchanged. 2. Decreased small bowel distention. PE: GEN: NAD, feels warm LUNGS: clear anteriorly HEART: RRR ABD: quiet, soft, doesn't seem tender NEURO/PSYCH: more alert today A/P: Constipation/fecal impaction Vomiting - resolved Hypernatremia -- On clears, can ADAT. PO PPI. Continue constipation treatment long-term - some issues w/ refusing meds yesterday. Note COVID-19 testing is pending. Hemodynamically unstable?: No Is patient in severe pain?: No Is NPO status required?: No MARTA CHAND Aug 03, 2019 10:07
--- NOTE | 2019-08-03 10:29 | NUR ---
SW following. Discussed with RN, pt from [facility]. [facility] has staffing available today to take pt back. SW discussed with Dr. Charles regarding whether pt can discharge today or not. SW will continue to follow.
[2019-08-03 11:00] VITALS: BP 117/70
--- NOTE | 2019-08-03 11:47 | PDOC ---
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 Foul-smelling emesis. CR 1.5 07/31: Afebrile, tachycardic overnight. Minimal stooling after enema yesterday, CR 1.0. KUB with improved small bowel less distended, apparently in same degree of fecal impaction. Asking for food today. Very large bowel movement. Accidentally dislodged his IV as well. Replaced Afebrile overnight. Tolerated advancing diet well. IV replaced. tries to spit his meds back to nursing. Of note has some behavioral issues. Staff not available to receive discharge today Plan: Advance diet. Cont bowel regimen One last IV keppra dose Likely back to long-term in next 24-48 hours Vitals Vitals Vital Signs Date Time Temp Pulse Resp B/P (MAP) Pulse Ox O2 Delivery O2 Flow Rate FiO2 08/03/19 07:00 100.0 95 17 112/66 (81) 94 Room Air 100.0 Physical Exam General: Alert, Cooperative Heart: Regular rate, Normal S1, Normal S2 Lungs: Clear, Other Extremities: No clubbing, No cyanosis Skin: No rashes, No breakdown Labs LABS Laboratory Tests Test 08/02/19 15:52 08/02/19 16:47 08/02/19 21:11 08/03/19 06:05 Coronavirus (COVID-19)(PCR) Not detected (NOT DETECT.) Glucose (Fingerstick) 101 mg/dL (70-99) 79 mg/dL (70-99) Sodium Level 147 mmol/L (136-145) Potassium Level 3.6 mmol/L (3.5-5.1) Chloride Level 109 mmol/L (98-107) Carbon Dioxide Level 24 mmol/L (21-32) Anion Gap 14 (6-14) Blood Urea Nitrogen 16 mg/dL (8-26) Creatinine 0.9 mg/dL (0.7-1.3) Estimated GFR (Cockcroft-Gault) 92.5 BUN/Creatinine Ratio 18 (6-20) Glucose Level 84 mg/dL (70-99) Calcium Level 7.7 mg/dL (8.5-10.1) Total Bilirubin 0.5 mg/dL (0.2-1.0) Aspartate Amino Transf (AST/SGOT) 15 U/L (15-37) Alanine Aminotransferase (ALT/SGPT) 18 U/L (16-63) Alkaline Phosphatase 65 U/L (46-116) Total Protein 5.5 g/dL (6.4-8.2) Albumin 2.8 g/dL (3.4-5.0) Albumin/Globulin Ratio 1.0 (1.0-1.7) Assessment and Plan Assessmemt and Plan Problems Medical Problems: (1) Dehydration Status: Acute (2) Hypernatremia Status: Acute (3) Nausea and vomiting Status: Acute Comment Review of Relevant I have reviewed the following items sameer (where applicable) has been applied. Labs Laboratory Tests Test 08/01/19 11:53 08/01/19 17:00 08/01/19 19:17 08/02/19 07:22 Glucose (Fingerstick) 101 mg/dL (70-99) 94 mg/dL (70-99) 96 mg/dL (70-99) 94 mg/dL (70-99) Test 08/02/19 11:39 08/02/19 15:52 08/02/19 16:47 08/02/19 21:11 Glucose (Fingerstick) 91 mg/dL (70-99) 101 mg/dL (70-99) 79 mg/dL (70-99) Coronavirus (COVID-19)(PCR) Not detected (NOT DETECT.) Test 08/03/19 06:05 Sodium Level 147 mmol/L (136-145) Potassium Level 3.6 mmol/L (3.5-5.1) Chloride Level 109 mmol/L (98-107) Carbon Dioxide Level 24 mmol/L (21-32) Anion Gap 14 (6-14) Blood Urea Nitrogen 16 mg/dL (8-26) Creatinine 0.9 mg/dL (0.7-1.3) Estimated GFR (Cockcroft-Gault) 92.5 BUN/Creatinine Ratio 18 (6-20) Glucose Level 84 mg/dL (70-99) Calcium Level 7.7 mg/dL (8.5-10.1) Total Bilirubin 0.5 mg/dL (0.2-1.0) Aspartate Amino Transf (AST/SGOT) 15 U/L (15-37) Alanine Aminotransferase (ALT/SGPT) 18 U/L (16-63) Alkaline Phosphatase 65 U/L (46-116) Total Protein 5.5 g/dL (6.4-8.2) Albumin 2.8 g/dL (3.4-5.0) Albumin/Globulin Ratio 1.0 (1.0-1.7) Laboratory Tests Test 08/02/19 15:52 08/02/19 16:47 08/02/19 21:11 08/03/19 06:05 Coronavirus (COVID-19)(PCR) Not detected (NOT DETECT.) Glucose (Fingerstick) 101 mg/dL (70-99) 79 mg/dL (70-99) Sodium Level 147 mmol/L (136-145) Potassium Level 3.6 mmol/L (3.5-5.1) Chloride Level 109 mmol/L (98-107) Carbon Dioxide Level 24 mmol/L (21-32) Anion Gap 14 (6-14) Blood Urea Nitrogen 16 mg/dL (8-26) Creatinine 0.9 mg/dL (0.7-1.3) Estimated GFR (Cockcroft-Gault) 92.5 BUN/Creatinine Ratio 18 (6-20) Glucose Level 84 mg/dL (70-99) Calcium Level 7.7 mg/dL (8.5-10.1) Total Bilirubin 0.5 mg/dL (0.2-1.0) Aspartate Amino Transf (AST/SGOT) 15 U/L (15-37) Alanine Aminotransferase (ALT/SGPT) 18 U/L (16-63) Alkaline Phosphatase 65 U/L (46-116) Total Protein 5.5 g/dL (6.4-8.2) Albumin 2.8 g/dL (3.4-5.0) Albumin/Globulin Ratio 1.0 (1.0-1.7) Microbiology 07/30/19 Urine Culture - Final, Complete Medications Current Medications Sodium Chloride 1,000 ml @ 1,000 mls/hr 1X ONCE IV Last administered on 07/30/19at 20:15; Start 07/30/19 at 20:15; Stop 07/30/19 at 21:14; Status DC Ondansetron HCl (Zofran) 4 mg 1X ONCE IV Last administered on 07/30/19at 20:21; Start 07/30/19 at 20:15; Stop 07/30/19 at 20:24; Status DC Famotidine (Pepcid Vial) 20 mg 1X ONCE IVP Last administered on 07/30/19at 20:21; Start 07/30/19 at 20:15; Stop 07/30/19 at 20:24; Status DC Ondansetron HCl (Zofran) 4 mg PRN Q8HRS PRN IV NAUSEA/VOMITING; Start 07/30/19 at 21:45; Stop 07/31/19 at 08:28; Status DC Sodium Chloride 1,000 ml @ 150 mls/hr Q6H40M IV Last administered on 07/31/19at 18:15; Start 07/30/19 at 21:45; Stop 07/31/19 at 21:44; Status DC Pantoprazole Sodium (PROTONIX VIAL for IV PUSH) 40 mg DAILYAC IVP Last administered on 08/03/19at 09:57; Start 07/31/19 at 07:30; Stop 08/03/19 at 10:08; Status DC Ondansetron HCl (Zofran) 4 mg PRN Q4HRS PRN IV NAUSEA/VOMITING; Start 07/31/19 at 08:30 Insulin Human Lispro (HumaLOG) 0-9 UNITS TIDACHC SQ ; Start 07/31/19 at 11:30 Dextrose (Dextrose 50%-Water Syringe) 12.5 gm PRN Q15MIN PRN IV SEE COMMENTS; Start 07/31/19 at 08:30 Levetiracetam 1000 mg/Dextrose 110 ml @ 440 mls/hr Q12HR IV Last administered on 08/01/19at 09:45; Start 07/31/19 at 09:00; Stop 08/02/19 at 08:26; Status DC Enoxaparin Sodium (Lovenox 40mg Syringe) 40 mg Q24H SQ Last administered on 08/03/19at 09:57; Start 07/31/19 at 09:00 Magnesium Sulfate/ Dextrose 100 ml @ 100 mls/hr 1X ONCE IV Last administered on 07/31/19at 09:01; Start 07/31/19 at 09:00; Stop 07/31/19 at 09:59; Status DC Lorazepam (Ativan) 1 mg PRN TID PRN PO AGITATION Last administered on 08/01/19at 21:26; Start 07/31/19 at 08:45 Oxcarbazepine (Trileptal) 600 mg BID PO Last administered on 08/03/19at 09:56; Start 07/31/19 at 09:00 Polyethylene Glycol (miraLAX PACKET) 17 gm DAILY PO Last administered on 08/03/19at 09:56; Start 07/31/19 at 09:00 Docusate Sodium (Colace) 100 mg QHS PO Last administered on 08/01/19at 21:26; Start 07/31/19 at 21:00 Bisacodyl (Dulcolax Supp) 10 mg PRN DAILY PRN [place] CONSTIPATION; Start 07/31/19 at 14:15; Stop 08/01/19 at 15:56; Status DC Bisacodyl (Dulcolax Supp) 10 mg 1X ONCE PA Last administered on 08/01/19at 11:20; Start 08/01/19 at 08:15; Stop 08/01/19 at 08:16; Status DC Bisacodyl (Dulcolax Supp) 10 mg PRN DAILY PRN [place] CONSTIPATION; Start 08/01/19 at 08:15 Levetiracetam (Keppra) 1,000 mg BID PO Last administered on 08/03/19at 09:56; Start 08/02/19 at 09:00 Levetiracetam 1000 mg/Dextrose 110 ml @ 440 mls/hr 1X ONCE IV Last administ ered on 08/02/19at 09:59; Start 08/02/19 at 10:00; Stop 08/02/19 at 10:14; Status DC Lorazepam (Ativan Inj) 0.5 mg TID PRN PRN IVP ANXIETY / AGITATION Last administered on 08/02/19at 15:56; Start 08/02/19 at 13:45 Lorazepam (Ativan Inj) 0.5 mg PRN TID PRN IVP ANXIETY / AGITATION; Start 08/02/19 at 14:00; Status UNV Pantoprazole Sodium (Protonix) 40 mg DAILYAC PO ; Start 08/04/19 at 07:30 Active Scripts Active Ativan (Lorazepam) 1 Mg Tablet 1 Mg PO TID PRN [place] 5-325 Tablet (Acetaminophen/Hydrocodone Bitart) 1 Each Tablet 1 Tab PO Q6HRS PRN Reported Levetiracetam 1,000 Mg Tablet 1,000 Mg PO BID Iron (Ferrous Sulfate) 325 Mg Tablet 325 Mg PO WEEKLY Docusate Sodium 100 Mg Tablet 100 Mg PO HS Tranxene T-Tab (Clorazepate Dipotassium) 3.75 Mg Tablet 3.75 Mg PO HS Senna (Sennosides) 8.6 Mg Tablet 8.6 Mg PO BID Ranitidine Hcl 150 Mg Tablet 150 Mg PO DAILY Trileptal (Oxcarbazepine) 300 Mg Tablet 600 Mg PO BID Polyethylene Glycol 3350 255 Gm Powder 17 Gm PO DAILY Vitals/I & O Vital Sign - Last 24 Hours 08/02/19 08/02/19 08/02/19 08/02/19 15:00 19:00 20:00 23:00 Temp 97.7 98.7 98.6 97.7 98.7 98.6 Pulse 96 96 89 Resp 18 18 18 B/P (MAP) 110/72 (85) 91/57 (68) 113/57 (75) Pulse Ox 94 92 90 O2 Delivery Room Air Room Air Room Air Room Air 08/03/19 08/03/19 03:00 07:00 Temp 98.0 100.0 98.0 100.0 Pulse 78 95 Resp 18 17 B/P (MAP) 104/61 (75) 112/66 (81) Pulse Ox 96 94 O2 Delivery Room Air Room Air Intake and Output 08/02/19 08/02/19 08/03/19 15:00 23:00 07:00 Intake Total 100 ml 0 ml Balance 100 ml 0 ml Hemodynamically unstable?: No Is patient in severe pain?: No Is NPO status required?: No ARIES QUINONES MD Aug 03, 2019 11:47
--- NOTE | 2019-08-03 12:45 | NUR ---
AM meds: Pt stated he was willing to take his meds this morning. After scanning and opening, pt refused meds. Spoke with pt about importance of taking meds, pt still refused. Will continue to monitor.
--- NOTE | 2019-08-03 15:12 | NUR ---
1500 VS: Pt refused to let PHYSICIAN take vitals. Spoke with pt, asked if we could check his vitals to help ensure safety, pt refused. Will continue to monitor pt.
[2019-08-03 19:00] VITALS: BP 122/83
[2019-08-03] MEDS: DOCUSATE SODIUM 100 MG CAPSULE. PO SCH (20:38)
[2019-08-03 23:00] VITALS: BP 109/80
[2019-08-04 03:00] VITALS: BP 114/76
[2019-08-04 07:00] VITALS: BP 118/77
[2019-08-04] MEDS: INSULIN LISPRO 300 UNITS/3 ML VIAL. SQ SCH ×4 (07:30→21:00)
[2019-08-04] MEDS: OXcarbazepine 300 MG TABLET PO SCH ×2 (08:30→20:37)
[2019-08-04] MEDS: PANTOPRAZOLE 40 MG TABLET.DR. PO SCH (08:30)
[2019-08-04] MEDS: levETIRAcetam 500 MG TABLET PO SCH ×2 (08:31→20:37)
[2019-08-04] MEDS: POLYETHYLENE GLYCOL 3350 17 GM PACKET. PO SCH (08:31)
[2019-08-04] MEDS: ENOXAPARIN 40 MG/0.4 ML SYRINGE. SQ SCH (08:34)
--- NOTE | 2019-08-04 10:59 | PDOC ---
Objective: Objective: D/w nurse - spit some meds out this morning but then took with orange juice and chocolate pudding. DC held w/ mild fever. Tmax 100. Stool charted 08/03. Vital Signs: Vital Signs Date Time Temp Pulse Resp B/P (MAP) Pulse Ox O2 Delivery O2 Flow Rate FiO2 08/04/19 07:42 Room Air 08/04/19 07:00 100.0 94 17 118/77 (91) 92 100.0 Labs: Laboratory Tests Test 08/03/19 21:24 08/04/19 07:46 Glucose (Fingerstick) 72 mg/dL (70-99) 106 mg/dL (70-99) PE: GEN: NAD LUNGS: CTAB HEART: RRR ABD: non-tender, soft NEURO/PSYCH: awake and alert - speech difficult to understand A/P: Constipation/fecal impaction - stooling -- Refusing some meds - try Amitiza instead of Miralax. DC per primary. Justicifation of Admission Dx: Justifications for Admission: Justification of Admission Dx: Yes MARTA CHAND Aug 04, 2019 10:59
[2019-08-04 11:00] VITALS: BP 116/69
[2019-08-04] MEDS ORDERED: POLYETHYLENE GLYCOL 3350 17 GM PACKET. PO PRN (11:00)
--- NOTE | 2019-08-04 11:23 | PDOC ---
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 FEN - AVAT PPX - Lovenox FULL CODE Dispo - inpatient for likely bowel obstruction Continue constipation treatment long-term - refusing meds D/C HELD FOR LOW GRADE FEVER , STILL ON CLEAR LIQUIDS History of Present Illness History of Present Illness Mr Pitt is a 43 yo M shelter SNF resident w/ PMHx Cerebral palsy, Severe mental retardation, Anemia, Esophagitis, Constipation, Generalized seizure disorder, 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 Foul-smelling emesis. CR 1.5 07/31: Afebrile, tachycardic overnight. Minimal stooling after enema yesterday, CR 1.0. KUB with improved small bowel less distended, apparently in same degree of fecal impaction. Asking for food today. Very large bowel movement. Accidentally dislodged his IV as well. Replaced Afebrile overnight. Tolerated advancing diet well. IV replaced. tries to spit his meds back to nursing. Of note has some behavioral issues. Staff not available to receive discharge today Plan: Advance diet. Cont bowel regimen One last IV keppra dose Likely back to intermediate in next 24-48 hours Vitals Vitals Vital Signs Date Time Temp Pulse Resp B/P (MAP) Pulse Ox O2 Delivery O2 Flow Rate FiO2 08/04/19 07:42 Room Air 08/04/19 07:00 100.0 94 17 118/77 (91) 92 100.0 Physical Exam General: Alert, Cooperative, No acute distress Heart: Regular rate, Normal S1, Normal S2 Lungs: Clear, Other Extremities: No clubbing, No cyanosis Skin: No rashes, No breakdown Labs LABS Laboratory Tests Test 08/03/19 21:24 08/04/19 07:46 Glucose (Fingerstick) 72 mg/dL (70-99) 106 mg/dL (70-99) Assessment and Plan Assessmemt and Plan Problems Medical Problems: (1) Dehydration Status: Acute (2) Hypernatremia Status: Acute (3) Nausea and vomiting Status: Acute Comment Review of Relevant I have reviewed the following items sameer (where applicable) has been applied. Labs Laboratory Tests Test 08/02/19 11:39 08/02/19 15:52 08/02/19 16:47 08/02/19 21:11 Glucose (Fingerstick) 91 mg/dL (70-99) 101 mg/dL (70-99) 79 mg/dL (70-99) Coronavirus (COVID-19)(PCR) Not detected (NOT DETECT.) Test 08/03/19 06:05 08/03/19 21:24 08/04/19 07:46 Sodium Level 147 mmol/L (136-145) Potassium Level 3.6 mmol/L (3.5-5.1) Chloride Level 109 mmol/L (98-107) Carbon Dioxide Level 24 mmol/L (21-32) Anion Gap 14 (6-14) Blood Urea Nitrogen 16 mg/dL (8-26) Creatinine 0.9 mg/dL (0.7-1.3) Estimated GFR (Cockcroft-Gault) 92.5 BUN/Creatinine Ratio 18 (-20) Glucose Level 84 mg/dL (70-99) Calcium Level 7.7 mg/dL (8.5-10.1) Total Bilirubin 0.5 mg/dL (0.2-1.0) Aspartate Amino Transf (AST/SGOT) 15 U/L (15-37) Alanine Aminotransferase (ALT/SGPT) 18 U/L (16-63) Alkaline Phosphatase 65 U/L (46-116) Total Protein 5.5 g/dL (6.4-8.2) Albumin 2.8 g/dL (3.4-5.0) Albumin/Globulin Ratio 1.0 (1.0-1.7) Glucose (Fingerstick) 72 mg/dL (70-99) 106 mg/dL (70-99) Laboratory Tests Test 08/03/19 21:24 08/04/19 07:46 Glucose (Fingerstick) 72 mg/dL (70-99) 106 mg/dL (70-99) Microbiology 07/30/19 Urine Culture - Final, Complete Medications Current Medications Sodium Chloride 1,000 ml @ 1,000 mls/hr 1X ONCE IV Last administered on 07/30/19at 20:15; Start 07/30/19 at 20:15; Stop 07/30/19 at 21:14; Status DC Ondansetron HCl (Zofran) 4 mg 1X ONCE IV Last administered on 07/30/19at 20:21; Start 07/30/19 at 20:15; Stop 07/30/19 at 20:24; Status DC Famotidine (Pepcid Vial) 20 mg 1X ONCE IVP Last administered on 07/30/19at 20:21; Start 07/30/19 at 20:15; Stop 07/30/19 at 20:24; Status DC Ondansetron HCl (Zofran) 4 mg PRN Q8HRS PRN IV NAUSEA/VOMITING; Start 07/30/19 at 21:45; Stop 07/31/19 at 08:28; Status DC Sodium Chloride 1,000 ml @ 150 mls/hr Q6H40M IV Last administered on 07/31/19at 18:15; Start 07/30/19 at 21:45; Stop 07/31/19 at 21:44; Status DC Pantoprazole Sodium (PROTONIX VIAL for IV PUSH) 40 mg DAILYAC IVP Last administered on 08/03/19at 09:57; Start 07/31/19 at 07:30; Stop 08/03/19 at 10:08; Status DC Ondansetron HCl (Zofran) 4 mg PRN Q4HRS PRN IV NAUSEA/VOMITING; Start 07/31/19 at 08:30 Insulin Human Lispro (HumaLOG) 0-9 UNITS TIDACHC SQ ; Start 07/31/19 at 11:30 Dextrose (Dextrose 50%-Water Syringe) 12.5 gm PRN Q15MIN PRN IV SEE COMMENTS; Start 07/31/19 at 08:30 Levetiracetam 1000 mg/Dextrose 110 ml @ 440 mls/hr Q12HR IV Last administered on 08/01/19at 09:45; Start 07/31/19 at 09:00; Stop 08/02/19 at 08:26; Status DC Enoxaparin Sodium (Lovenox 40mg Syringe) 40 mg Q24H SQ Last administered on 08/04/19at 08:34; Start 07/31/19 at 09:00 Magnesium Sulfate/ Dextrose 100 ml @ 100 mls/hr 1X ONCE IV Last administered on 07/31/19at 09:01; Start 07/31/19 at 09:00; Stop 07/31/19 at 09:59; Status DC Lorazepam (Ativan) 1 mg PRN TID PRN PO AGITATION Last administered on 08/01/19at 21:26; Start 07/31/19 at 08:45 Oxcarbazepine (Trileptal) 600 mg BID PO Last administered on 08/04/19at 08:30; Start 07/31/19 at 09:00 Polyethylene Glycol (miraLAX PACKET) 17 gm DAILY PO ; Start 07/31/19 at 09:00; Stop 08/04/19 at 11:00; Status DC Docusate Sodium (Colace) 100 mg QHS PO Last administered on 08/03/19at 20:38; Start 07/31/19 at 21:00 Bisacodyl (Dulcolax Supp) 10 mg PRN DAILY PRN [place] CONSTIPATION; Start 07/31/19 at 14:15; Stop 08/01/19 at 15:56; Status DC Bisacodyl (Dulcolax Supp) 10 mg 1X ONCE MO Last administered on 08/01/19at 11:20; Start 08/01/19 at 08:15; Stop 08/01/19 at 08:16; Status DC Bisacodyl (Dulcolax Supp) 10 mg PRN DAILY PRN [place] CONSTIPATION; Start 08/01/19 at 08:15 Levetiracetam (Keppra) 1,000 mg BID PO Last administered on 08/04/19at 08:31; Start 08/02/19 at 09:00 Levetiracetam 1000 mg/Dextrose 110 ml @ 440 mls/hr 1X ONCE IV Last administered on 08/02/19at 09:59; Start 08/02/19 at 10:00; Stop 08/02/19 at 10:14; Status DC Lorazepam (Ativan Inj) 0.5 mg TID PRN PRN IVP ANXIETY / AGITATION Last administered on 08/02/19at 15:56; Start 08/02/19 at 13:45 Lorazepam (Ativan Inj) 0.5 mg PRN TID PRN IVP ANXIETY / AGITATION; Start 08/02/19 at 14:00; Status UNV Pantoprazole Sodium (Protonix) 40 mg DAILYAC PO Last administered on 08/04/19at 08:30; Start 08/04/19 at 07:30 Polyethylene Glycol (miraLAX PACKET) 17 gm PRN DAILY PRN PO constipation; Start 08/04/19 at 11:00 Lubiprostone (Amitiza) 24 mcg BIDWMEALS PO ; Start 08/04/19 at 17:00 Active Scripts Active Ativan (Lorazepam) 1 Mg Tablet 1 Mg PO TID PRN [place] 5-325 Tablet (Acetaminophen/Hydrocodone Bitart) 1 Each Tablet 1 Tab PO Q6HRS PRN Reported Levetiracetam 1,000 Mg Tablet 1,000 Mg PO BID Iron (Ferrous Sulfate) 325 Mg Tablet 325 Mg PO WEEKLY Docusate Sodium 100 Mg Tablet 100 Mg PO HS Tranxene T-Tab (Clorazepate Dipotassium) 3.75 Mg Tablet 3.75 Mg PO HS Senna (Sennosides) 8.6 Mg Tablet 8.6 Mg PO BID Ranitidine Hcl 150 Mg Tablet 150 Mg PO DAILY Trileptal (Oxcarbazepine) 300 Mg Tablet 600 Mg PO BID Polyethylene Glycol 3350 255 Gm Powder 17 Gm PO DAILY Vitals/I & O Vital Sign - Last 24 Hours 08/03/19 08/03/19 08/04/19 08/04/19 19:00 23:00 03:00 07:00 Temp 98.0 98.4 97.9 100.0 98.0 98.4 97.9 100.0 Pulse 93 82 96 94 Resp 20 18 18 17 B/P (MAP) 122/83 (96) 109/80 (90) 114/76 (89) 118/77 (91) Pulse Ox 94 95 94 92 O2 Delivery Room Air 08/04/19 07:42 O2 Delivery Room Air Intake and Output 08/03/19 08/03/19 08/04/19 15:00 23:00 07:00 Intake Total 240 ml Balance 240 ml Hemodynamically unstable?: No Is patient in severe pain?: No Is NPO status required?: No ARIES QUINONES MD Aug 04, 2019 11:23
--- NOTE | 2019-08-04 12:00 | NUR ---
SW following. Discussed with RN, Dr. Charles concerned about pt's food consumption and lack thereof. RAZIA spoke with Malka at [facility] regarding pt's eating habits. Malka reported pt is a picky eater and eats "finger foods" as does not use cutlery. Pt likes donuts, cookies, eats sandwiches for lunch some days, like [employer]. Malka reported pt does not have a big appetite, reporting he is quite a small aminata so can't usually eat a lot. RAZIA notified RN, RN reported pt has been advanced to full liquid diet today. SW will continue to follow.
[2019-08-04 15:00] VITALS: BP 120/63
[2019-08-04] MEDS: LUBIPROSTONE 24 MCG CAPSULE PO SCH (16:09)
[2019-08-04 19:48] VITALS: BP 144/77
[2019-08-04] MEDS: DOCUSATE SODIUM 100 MG CAPSULE. PO SCH (20:36)
[2019-08-04] MEDS ORDERED: ACETAMINOPHEN 325 MG TABLET. PO PRN (20:45)
[2019-08-04 22:35] VITALS: BP 130/82
[2019-08-05 02:53] VITALS: BP 123/81
[2019-08-05 07:00] VITALS: BP 111/73
[2019-08-05] MEDS: INSULIN LISPRO 300 UNITS/3 ML VIAL. SQ SCH ×4 (07:30→20:58)
--- NOTE | 2019-08-05 09:37 | PDOC ---
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 FEN - ADAT PPX - Lovenox FULL CODE Dispo - inpatient for likely bowel obstruction Continue constipation treatment long-term - refusing meds at times D/C HELD FOR LOW GRADE FEVER , STILL ON foft diet 1/2 NS AT 100 CC /HR 08/04 POOR fluid intake po d/w case mgt History of Present Illness History of Present Illness Mr Pitt is a 43 yo M 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 Foul-smelling emesis. CR 1.5 07/31: Afebrile, tachycardic overnight. Minimal stooling after enema yesterday, CR 1.0. KUB with improved small bowel less distended, apparently in same degree of fecal impaction. Asking for food today. Very large bowel movement. Accidentally dislodged his IV as well. Replaced Afebrile overnight. Tolerated advancing diet well. IV replaced. tries to spit his meds back to nursing. Of note has some behavioral issues. Staff not available to receive discharge today Plan: Advance diet. Cont bowel regimen One last IV keppra dose Likely back to detention in next 24-48 hours Vitals Vitals Vital Signs Date Time Temp Pulse Resp B/P (MAP) Pulse Ox O2 Delivery O2 Flow Rate FiO2 08/05/19 07:00 97.9 123 17 111/73 (86) 95 Room Air 97.9 Physical Exam General: Alert, Cooperative, No acute distress Heart: Regular rate, Normal S1, Normal S2, Other (tachy) Lungs: Clear, Other Abdomen: Normal bowel sounds, Soft Extremities: No clubbing, No cyanosis Skin: No rashes, No breakdown Labs LABS Laboratory Tests Test 08/04/19 20:26 08/05/19 07:13 Glucose (Fingerstick) 117 mg/dL (70-99) 104 mg/dL (70-99) Assessment and Plan Assessmemt and Plan Problems Medical Problems: (1) Dehydration Status: Acute (2) Hypernatremia Status: Acute (3) Nausea and vomiting Status: Acute Comment Review of Relevant I have reviewed the following items sameer (where applicable) has been applied. Labs Laboratory Tests Test 08/03/19 21:24 08/04/19 07:46 08/04/19 20:26 08/05/19 07:13 Glucose (Fingerstick) 72 mg/dL (70-99) 106 mg/dL (70-99) 117 mg/dL (70-99) 104 mg/dL (70-99) Laboratory Tests Test 08/04/19 20:26 08/05/19 07:13 Glucose (Fingerstick) 117 mg/dL (70-99) 104 mg/dL (70-99) Microbiology 07/30/19 Urine Culture - Final, Complete Medications Current Medications Sodium Chloride 1,000 ml @ 1,000 mls/hr 1X ONCE IV Last administered on 07/30/19at 20:15; Start 07/30/19 at 20:15; Stop 07/30/19 at 21:14; Status DC Ondansetron HCl (Zofran) 4 mg 1X ONCE IV Last administered on 07/30/19at 20:21; Start 07/30/19 at 20:15; Stop 07/30/19 at 20:24; Status DC Famotidine (Pepcid Vial) 20 mg 1X ONCE IVP Last administered on 07/30/19at 20:21; Start 07/30/19 at 20:15; Stop 07/30/19 at 20:24; Status DC Ondansetron HCl (Zofran) 4 mg PRN Q8HRS PRN IV NAUSEA/VOMITING; Start 07/30/19 at 21:45; Stop 07/31/19 at 08:28; Status DC Sodium Chloride 1,000 ml @ 150 mls/hr Q6H40M IV Last administered on 07/31/19at 18:15; Start 07/30/19 at 21:45; Stop 07/31/19 at 21:44; Status DC Pantoprazole Sodium (PROTONIX VIAL for IV PUSH) 40 mg DAILYAC IVP Last administered on 08/03/19at 09:57; Start 07/31/19 at 07:30; Stop 08/03/19 at 10:08; Status DC Ondansetron HCl (Zofran) 4 mg PRN Q4HRS PRN IV NAUSEA/VOMITING; Start 07/31/19 at 08:30 Insulin Human Lispro (HumaLOG) 0-9 UNITS TIDACHC SQ ; Start 07/31/19 at 11:30 Dextrose (Dextrose 50%-Water Syringe) 12.5 gm PRN Q15MIN PRN IV SEE COMMENTS; Start 07/31/19 at 08:30 Levetiracetam 1000 mg/Dextrose 110 ml @ 440 mls/hr Q12HR IV Last administered on 08/01/19at 09:45; Start 07/31/19 at 09:00; Stop 08/02/19 at 08:26; Status DC Enoxaparin Sodium (Lovenox 40mg Syringe) 40 mg Q24H SQ Last administered on 08/04/19at 08:34; Start 07/31/19 at 09:00 Magnesium Sulfate/ Dextrose 100 ml @ 100 mls/hr 1X ONCE IV Last administered on 07/31/19at 09:01; Start 07/31/19 at 09:00; Stop 07/31/19 at 09:59; Status DC Lorazepam (Ativan) 1 mg PRN TID PRN PO AGITATION Last administered on 08/01/19at 21:26; Start 07/31/19 at 08:45 Oxcarbazepine (Trileptal) 600 mg BID PO Last administered on 08/04/19at 20:37; Start 07/31/19 at 09:00 Polyethylene Glycol (miraLAX PACKET) 17 gm DAILY PO ; Start 07/31/19 at 09:00; Stop 08/04/19 at 11:00; Status DC Docusate Sodium (Colace) 100 mg QHS PO Last administered on 08/04/19at 20:36; Start 07/31/19 at 21:00 Bisacodyl (Dulcolax Supp) 10 mg PRN DAILY PRN LA CONSTIPATION; Start 07/31/19 at 14:15; Stop 08/01/19 at 15:56; Status DC Bisacodyl (Dulcolax Supp) 10 mg 1X ONCE LA Last administered on 08/01/19at 11:20; Start 08/01/19 at 08:15; Stop 08/01/19 at 08:16; Status DC Bisacodyl (Dulcolax Supp) 10 mg PRN DAILY PRN LA CONSTIPATION; Start 08/01/19 at 08:15 Levetiracetam (Keppra) 1,000 mg BID PO Last administered on 08/04/19at 20:37; Start 08/02/19 at 09:00 Levetiracetam 1000 mg/Dextrose 110 ml @ 440 mls/hr 1X ONCE IV Last administered on 08/02/19at 09:59; Start 08/02/19 at 10:00; Stop 08/02/19 at 10:14; Status DC Lorazepam (Ativan Inj) 0.5 mg TID PRN PRN IVP ANXIETY / AGITATION Last administered on 08/02/19at 15:56; Start 08/02/19 at 13:45 Lorazepam (Ativan Inj) 0.5 mg PRN TID PRN IVP ANXIETY / AGITATION; Start 08/02/19 at 14:00; Status UNV Pantoprazole Sodium (Protonix) 40 mg DAILYAC PO Last administered on 08/04/19at 08:30; Start 08/04/19 at 07:30 Polyethylene Glycol (miraLAX PACKET) 17 gm PRN DAILY PRN PO constipation; Start 08/04/19 at 11:00 Lubiprostone (Amitiza) 24 mcg BIDWMEALS PO ; Start 08/04/19 at 17:00 Acetaminophen (Tylenol) 650 mg PRN Q6HRS PRN PO FEVER > 100.3'F; Start 08/04/19 at 20:45 Active Scripts Active Ativan (Lorazepam) 1 Mg Tablet 1 Mg PO TID PRN [place]orte 5-325 Tablet (Acetaminophen/Hydrocodone Bitart) 1 Each Tablet 1 Tab PO Q6HRS PRN Reported Levetiracetam 1,000 Mg Tablet 1,000 Mg PO BID Iron (Ferrous Sulfate) 325 Mg Tablet 325 Mg PO WEEKLY Docusate Sodium 100 Mg Tablet 100 Mg PO HS Tranxene T-Tab (Clorazepate Dipotassium) 3.75 Mg Tablet 3.75 Mg PO HS Senna (Sennosides) 8.6 Mg Tablet 8.6 Mg PO BID Ranitidine Hcl 150 Mg Tablet 150 Mg PO DAILY Trileptal (Oxcarbazepine) 300 Mg Tablet 600 Mg PO BID Polyethylene Glycol 3350 255 Gm Powder 17 Gm PO DAILY Vitals/I & O Vital Sign - Last 24 Hours 08/04/19 08/04/19 08/04/19 08/04/19 11:00 15:00 19:48 20:00 Temp 100.0 98.5 100.2 100.0 98.5 100.2 Pulse 94 93 130 Resp 17 17 20 B/P (MAP) 116/69 (85) 120/63 (82) 144/77 (99) Pulse Ox 92 91 94 O2 Delivery Room Air Room Air Room Air Room Air 08/04/19 08/05/19 08/05/19 22:35 02:53 07:00 Temp 99.4 98.8 97.9 99.4 98.8 97.9 Pulse 124 126 123 Resp 18 16 17 B/P (MAP) 130/82 (98) 123/81 (95) 111/73 (86) Pulse Ox 92 93 95 O2 Delivery Room Air Room Air Room Air Intake and Output 08/04/19 08/04/19 08/05/19 15:00 23:00 07:00 Intake Total 240 ml Balance 240 ml Hemodynamically unstable?: No Is patient in severe pain?: No Is NPO status required?: No ARIES QUINONES MD Aug 05, 2019 09:36
[2019-08-05] MEDS: OXcarbazepine 300 MG TABLET PO SCH ×2 (10:05→20:58)
[2019-08-05] MEDS: LUBIPROSTONE 24 MCG CAPSULE PO SCH ×2 (10:05→17:00)
[2019-08-05] MEDS: levETIRAcetam 500 MG TABLET PO SCH ×2 (10:05→20:58)
[2019-08-05] MEDS: PANTOPRAZOLE 40 MG TABLET.DR. PO SCH (10:05)
[2019-08-05] MEDS: ENOXAPARIN 40 MG/0.4 ML SYRINGE. SQ SCH (10:05)
[2019-08-05 10:45] VITALS: BP 115/70
--- NOTE | 2019-08-05 11:04 | PDOC ---
Objective: Objective: Tmax 100.2 D/w nurse. Vital Signs: Vital Signs Date Time Temp Pulse Resp B/P (MAP) Pulse Ox O2 Delivery O2 Flow Rate FiO2 08/05/19 10:45 98.0 118 17 115/70 (85) 95 Room Air 98.0 Labs: Laboratory Tests Test 08/04/19 20:26 08/05/19 07:13 Glucose (Fingerstick) 117 mg/dL 104 mg/dL PE: GEN: NAD LUNGS: room air HEART: tachycardic ABD: non-distended NEURO/PSYCH: sleeping, not awakened A/P: Constipation/fecal impaction - stooling after admission s/p disimpaction, enema, PO meds -- ADAT, continue constipation treatment. Justicifation of Admission Dx: Justifications for Admission: Justification of Admission Dx: Yes MARTA CHAND Aug 05, 2019 11:04
[2019-08-05 11:30] LABS: ALBUMIN 2.7 g/dL (3.4-5.0); GFR 81.9; POTASSIUM 3.3 mmol/L (3.5-5.1); TOTAL BILIRUBIN 0.5 mg/dL (0.2-1.0); TOTAL PROTEIN 5.4 g/dL (6.4-8.2)
[2019-08-05] MEDS ORDERED: IV 1/2 NORMAL SALINE 1,000 ML IV SCH (12:30)
--- NOTE | 2019-08-05 14:05 | NUR ---
SW following. Discussed with RN, pt now a GI soft diet. Pt getting potassium today. SW will continue to follow.
[2019-08-05 15:00] VITALS: BP 108/78
[2019-08-05 19:00] VITALS: BP 116/72
[2019-08-05] MEDS: NACL IV SCH (19:12)
[2019-08-05] MEDS: DEXTROSE IV SCH (19:12)
[2019-08-05] MEDS: POTASSIUM CHLORIDE IV SCH (19:12)
[2019-08-05] MEDS: DOCUSATE SODIUM 100 MG CAPSULE. PO SCH (20:58)
[2019-08-05 23:00] VITALS: BP 123/69
[2019-08-06 03:00] VITALS: BP 97/50
[2019-08-06 04:32] LABS: BASO % 0 % (0-3); EOS # 0.2 x10^3/uL (0.0-0.7); EOS % 3 % (0-3); HEMATOCRIT 37.8 % (39.0-53.0); HEMOGLOBIN 12.9 g/dL (13.0-17.5); LYMPH # 2.3 x10^3/uL (1.0-4.8); LYMPH % 30 % (24-48); MEAN CORPUSCULAR HEMOGLOBIN 30 pg (25-35); MEAN CORPUSCULAR HGB CONC 34 g/dL (31-37); MEAN CORPUSCULAR VOLUME 87 fL (79-100); MONO # 1.2 x10^3/uL (0.0-1.1); MONO % 16 % (0-9); NEUT # 3.7 x10^3/uL (1.8-7.7); NEUT % 50 % (31-73); PLATELET COUNT 269 x10^3/uL (140-400); RED BLOOD COUNT 4.36 x10^6/uL (4.30-5.70); RED CELL DISTRIBUTION WIDTH 14.1 % (11.5-14.5); WHITE BLOOD COUNT 7.4 x10^3/uL (4.0-11.0)
[2019-08-06 04:53] LABS: ALBUMIN 2.5 g/dL (3.4-5.0); ALBUMIN/GLOBULIN RATIO 0.9 (1.0-1.7); CALCIUM 7.8 mg/dL (8.5-10.1); CREATININE 0.9 mg/dL (0.7-1.3); GFR 92.5; POTASSIUM 3.4 mmol/L (3.5-5.1); TOTAL BILIRUBIN 0.2 mg/dL (0.2-1.0); TOTAL PROTEIN 5.4 g/dL (6.4-8.2)
[2019-08-06] MEDS: POTASSIUM CHLORIDE IV SCH ×3 (05:45→22:40)
[2019-08-06] MEDS: NACL IV SCH ×3 (05:45→22:40)
[2019-08-06] MEDS: DEXTROSE IV SCH ×3 (05:45→22:40)
[2019-08-06] MEDS: PANTOPRAZOLE 40 MG TABLET.DR. PO SCH (05:49)
[2019-08-06 07:00] VITALS: BP 107/69
[2019-08-06] MEDS: INSULIN LISPRO 300 UNITS/3 ML VIAL. SQ SCH ×4 (07:30→21:00)
[2019-08-06] MEDS: LUBIPROSTONE 24 MCG CAPSULE PO SCH ×3 (08:00→17:00)
[2019-08-06] MEDS: levETIRAcetam 500 MG TABLET PO SCH ×3 (09:00→20:21)
[2019-08-06] MEDS: OXcarbazepine 300 MG TABLET PO SCH ×3 (09:00→20:22)
[2019-08-06] MEDS: ENOXAPARIN 40 MG/0.4 ML SYRINGE. SQ SCH (09:12)
--- NOTE | 2019-08-06 09:17 | NUR ---
SW following. Discussed with RN, pt was offered [employer] yesterday, however he didn't eat it. Per RN, pt has been sleeping a lot - which RN discussed with pt's mcc. [facility] advised this is normal for pt, he is up for a few days and then sleeps for a few days. SW will continue to follow to determine discharge planning.
--- NOTE | 2019-08-06 10:04 | PDOC ---
Objective: Objective: Reviewed chart - didn't eat food that was offered yesterday, skilled nursing ap parently says normal for him to sleep for a few days. Refused meds (including Amitiza) this morning. Last stool charted on 08/03. Vital Signs: Vital Signs Date Time Temp Pulse Resp B/P (MAP) Pulse Ox O2 Delivery O2 Flow Rate FiO2 08/06/19 07:00 98.1 97 16 107/69 (82) 95 Room Air 98.1 Labs: Laboratory Tests Test 08/05/19 10:35 08/05/19 11:20 08/05/19 16:52 08/05/19 20:14 Sodium Level 149 mmol/L Potassium Level 3.3 mmol/L Chloride Level 111 mmol/L Carbon Dioxide Level 24 mmol/L Anion Gap 14 Blood Urea Nitrogen 19 mg/dL Creatinine 1.0 mg/dL Estimated GFR (Cockcroft-Gault) 81.9 BUN/Creatinine Ratio 19 Glucose Level 101 mg/dL Calcium Level 8.0 mg/dL Total Bilirubin 0.5 mg/dL Aspartate Amino Transf (AST/SGOT) 19 U/L Alanine Aminotransferase (ALT/SGPT) 30 U/L Alkaline Phosphatase 67 U/L Total Protein 5.4 g/dL Albumin 2.7 g/dL Albumin/Globulin Ratio 1.0 Glucose (Fingerstick) 92 mg/dL 86 mg/dL 108 mg/dL Test 08/06/19 04:00 08/06/19 07:16 White Blood Count 7.4 x10^3/uL Red Blood Count 4.36 x10^6/uL Hemoglobin 12.9 g/dL Hematocrit 37.8 % Mean Corpuscular Volume 87 fL Mean Corpuscular Hemoglobin 30 pg Mean Corpuscular Hemoglobin Concent 34 g/dL Red Cell Distribution Width 14.1 % Platelet Count 269 x10^3/uL Neutrophils (%) (Auto) 50 % Lymphocytes (%) (Auto) 30 % Monocytes (%) (Auto) 16 % Eosinophils (%) (Auto) 3 % Basophils (%) (Auto) 0 % Neutrophils # (Auto) 3.7 x10^3/uL Lymphocytes # (Auto) 2.3 x10^3/uL Monocytes # (Auto) 1.2 x10^3/uL Eosinophils # (Auto) 0.2 x10^3/uL Basophils # (Auto) 0.0 x10^3/uL Sodium Level 146 mmol/L Potassium Level 3.4 mmol/L Chloride Level 110 mmol/L Carbon Dioxide Level 28 mmol/L Anion Gap 8 Blood Urea Nitrogen 16 mg/dL Creatinine 0.9 mg/dL Estimated GFR (Cockcroft-Gault) 92.5 BUN/Creatinine Ratio 18 Glucose Level 118 mg/dL Calcium Level 7.8 mg/dL Total Bilirubin 0.2 mg/dL Aspartate Amino Transf (AST/SGOT) 18 U/L Alanine Aminotransferase (ALT/SGPT) 25 U/L Alkaline Phosphatase 61 U/L Total Protein 5.4 g/dL Albumin 2.5 g/dL Albumin/Globulin Ratio 0.9 Glucose (Fingerstick) 105 mg/dL PE: GEN: NAD LUNGS: room air HEART: RRR ABD: soft, did not awaken during exam NEURO/PSYCH: sleeping A/P: Constipation/fecal impaction - has stooled w/ meds/disimpaction since admission, intermittently refuses meds -- DC per primary on constipation regimen. Justicifation of Admission Dx: Justifications for Admission: Justification of Admission Dx: Yes MARTA CHAND Aug 06, 2019 10:04
--- NOTE | 2019-08-06 10:13 | PDOC ---
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 FEN - ADAT PPX - Lovenox FULL CODE Dispo - inpatient for likely bowel obstruction Continue constipation treatment long-term - refusing meds at times D/C HELD FOR LOW GRADE FEVER , STILL ON foft diet d5 03/07 NS WITH 20KCL/LITER 100CC /HR 08/05 POOR fluid intake po HARDLY ANY INTAKE PO X 24 HRS d/w case mgt History of Present Illness History of Present Illness 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 Foul-smelling emesis. CR 1.5 07/31: Afebrile, tachycardic overnight. Minimal stooling after enema yesterday, CR 1.0. KUB with improved small bowel less distended, apparently in same degree of fecal impaction. Asking for food today. Very large bowel movement. Accidentally dislodged his IV as well. Replaced Afebrile overnight. Tolerated advancing diet well. IV replaced. tries to spit his meds back to nursing. Of note has some behavioral issues. Staff not available to receive discharge today Plan: Advance diet. Cont bowel regimen One last IV keppra dose Likely back to nursing home in next 24-48 hours Vitals Vitals Vital Signs Date Time Temp Pulse Resp B/P (MAP) Pulse Ox O2 Delivery O2 Flow Rate FiO2 08/06/19 07:00 98.1 97 16 107/69 (82) 95 Room Air 98.1 Physical Exam General: Alert, Cooperative, No acute distress Heart: Regular rate, Normal S1, Normal S2, Other (tachy) Lungs: Clear, Other Abdomen: Normal bowel sounds, Soft, No tenderness Extremities: No clubbing, No cyanosis Skin: No rashes, No breakdown Labs LABS Procedure Result URINE CULTURE Final Final No Growth on 08/01/19 at 0816 Testing Performed by: [address] [id number] For Inquires, the Physician may contact the Microbiology department at [phone] Unless otherwise specified, Testing Performed by: [address] [id number] For Inquires, the Physician may contact the Microbiology department at [phone] Laboratory Tests Test 08/05/19 10:35 08/05/19 11:20 08/05/19 16:52 08/05/19 20:14 Sodium Level 149 mmol/L (136-145) Potassium Level 3.3 mmol/L (3.5-5.1) Chloride Level 111 mmol/L (98-107) Carbon Dioxide Level 24 mmol/L (21-32) Anion Gap 14 (6-14) Blood Urea Nitrogen 19 mg/dL (8-26) Creatinine 1.0 mg/dL (0.7-1.3) Estimated GFR (Cockcroft-Gault) 81.9 BUN/Creatinine Ratio 19 (6-20) Glucose Level 101 mg/dL (70-99) Calcium Level 8.0 mg/dL (8.5-10.1) Total Bilirubin 0.5 mg/dL (0.2-1.0) Aspartate Amino Transf (AST/SGOT) 19 U/L (15-37) Alanine Aminotransferase (ALT/SGPT) 30 U/L (16-63) Alkaline Phosphatase 67 U/L (46-116) Total Protein 5.4 g/dL (6.4-8.2) Albumin 2.7 g/dL (3.4-5.0) Albumin/Globulin Ratio 1.0 (1.0-1.7) Glucose (Fingerstick) 92 mg/dL (70-99) 86 mg/dL (70-99) 108 mg/dL (70-99) Test 08/06/19 04:00 08/06/19 07:16 White Blood Count 7.4 x10^3/uL (4.0-11.0) Red Blood Count 4.36 x10^6/uL (4.30-5.70) Hemoglobin 12.9 g/dL (13.0-17.5) Hematocrit 37.8 % (39.0-53.0) Mean Corpuscular Volume 87 fL (79-100) Mean Corpuscular Hemoglobin 30 pg (25-35) Mean Corpuscular Hemoglobin Concent 34 g/dL (31-37) Red Cell Distribution Width 14.1 % (11.5-14.5) Platelet Count 269 x10^3/uL (140-400) Neutrophils (%) (Auto) 50 % (31-73) Lymphocytes (%) (Auto) 30 % (24-48) Monocytes (%) (Auto) 16 % (0-9) Eosinophils (%) (Auto) 3 % (0-3) Basophils (%) (Auto) 0 % (0-3) Neutrophils # (Auto) 3.7 x10^3/uL (1.8-7.7) Lymphocytes # (Auto) 2.3 x10^3/uL (1.0-4.8) Monocytes # (Auto) 1.2 x10^3/uL (0.0-1.1) Eosinophils # (Auto) 0.2 x10^3/uL (0.0-0.7) Basophils # (Auto) 0.0 x10^3/uL (0.0-0.2) Sodium Level 146 mmol/L (136-145) Potassium Level 3.4 mmol/L (3.5-5.1) Chloride Level 110 mmol/L (98-107) Carbon Dioxide Level 28 mmol/L (21-32) Anion Gap 8 (6-14) Blood Urea Nitrogen 16 mg/dL (8-26) Creatinine 0.9 mg/dL (0.7-1.3) Estimated GFR (Cockcroft-Gault) 92.5 BUN/Creatinine Ratio 18 (6-20) Glucose Level 118 mg/dL (70-99) Calcium Level 7.8 mg/dL (8.5-10.1) Total Bilirubin 0.2 mg/dL (0.2-1.0) Aspartate Amino Transf (AST/SGOT) 18 U/L (15-37) Alanine Aminotransferase (ALT/SGPT) 25 U/L (16-63) Alkaline Phosphatase 61 U/L (46-116) Total Protein 5.4 g/dL (6.4-8.2) Albumin 2.5 g/dL (3.4-5.0) Albumin/Globulin Ratio 0.9 (1.0-1.7) Glucose (Fingerstick) 105 mg/dL (70-99) Assessment and Plan Assessmemt and Plan Problems Medical Problems: (1) Dehydration Status: Acute (2) Hypernatremia Status: Acute (3) Nausea and vomiting Status: Acute Comment Review of Relevant I have reviewed the following items sameer (where applicable) has been applied. Labs Laboratory Tests Test 08/04/19 20:26 08/05/19 07:13 08/05/19 10:35 08/05/19 11:20 Glucose (Fingerstick) 117 mg/dL (70-99) 104 mg/dL (70-99) 92 mg/dL (70-99) Sodium Level 149 mmol/L (136-145) Potassium Level 3.3 mmol/L (3.5-5.1) Chloride Level 111 mmol/L (98-107) Carbon Dioxide Level 24 mmol/L (21-32) Anion Gap 14 (6-14) Blood Urea Nitrogen 19 mg/dL (8-26) Creatinine 1.0 mg/dL (0.7-1.3) Estimated GFR (Cockcroft-Gault) 81.9 BUN/Creatinine Ratio 19 (6-20) Glucose Level 101 mg/dL (70-99) Calcium Level 8.0 mg/dL (8.5-10.1) Total Bilirubin 0.5 mg/dL (0.2-1.0) Aspartate Amino Transf (AST/SGOT) 19 U/L (15-37) Alanine Aminotransferase (ALT/SGPT) 30 U/L (16-63) Alkaline Phosphatase 67 U/L (46-116) Total Protein 5.4 g/dL (6.4-8.2) Albumin 2.7 g/dL (3.4-5.0) Albumin/Globulin Ratio 1.0 (1.0-1.7) Test 08/05/19 16:52 08/05/19 20:14 08/06/19 04:00 08/06/19 07:16 Glucose (Fingerstick) 86 mg/dL (70-99) 108 mg/dL (70-99) 105 mg/dL (70-99) White Blood Count 7.4 x10^3/uL (4.0-11.0) Red Blood Count 4.36 x10^6/uL (4.30-5.70) Hemoglobin 12.9 g/dL (13.0-17.5) Hematocrit 37.8 % (39.0-53.0) Mean Corpuscular Volume 87 fL (79-100) Mean Corpuscular Hemoglobin 30 pg (25-35) Mean Corpuscular Hemoglobin Concent 34 g/dL (31-37) Red Cell Distribution Width 14.1 % (11.5-14.5) Platelet Count 269 x10^3/uL (140-400) Neutrophils (%) (Auto) 50 % (31-73) Lymphocytes (%) (Auto) 30 % (24-48) Monocytes (%) (Auto) 16 % (0-9) Eosinophils (%) (Auto) 3 % (0-3) Basophils (%) (Auto) 0 % (0-3) Neutrophils # (Auto) 3.7 x10^3/uL (1.8-7.7) Lymphocytes # (Auto) 2.3 x10^3/uL (1.0-4.8) Monocytes # (Auto) 1.2 x10^3/uL (0.0-1.1) Eosinophils # (Auto) 0.2 x10^3/uL (0.0-0.7) Basophils # (Auto) 0.0 x10^3/uL (0.0-0.2) Sodium Level 146 mmol/L (136-145) Potassium Level 3.4 mmol/L (3.5-5.1) Chloride Level 110 mmol/L (98-107) Carbon Dioxide Level 28 mmol/L (21-32) Anion Gap 8 (6-14) Blood Urea Nitrogen 16 mg/dL (8-26) Creatinine 0.9 mg/dL (0.7-1.3) Estimated GFR (Cockcroft-Gault) 92.5 BUN/Creatinine Ratio 18 (6-20) Glucose Level 118 mg/dL (70-99) Calcium Level 7.8 mg/dL (8.5-10.1) Total Bilirubin 0.2 mg/dL (0.2-1.0) Aspartate Amino Transf (AST/SGOT) 18 U/L (15-37) Alanine Aminotransferase (ALT/SGPT) 25 U/L (16-63) Alkaline Phosphatase 61 U/L (46-116) Total Protein 5.4 g/dL (6.4-8.2) Albumin 2.5 g/dL (3.4-5.0) Albumin/Globulin Ratio 0.9 (1.0-1.7) Laboratory Tests Test 08/05/19 10:35 08/05/19 11:20 08/05/19 16:52 08/05/19 20:14 Sodium Level 149 mmol/L (136-145) Potassium Level 3.3 mmol/L (3.5-5.1) Chloride Level 111 mmol/L (98-107) Carbon Dioxide Level 24 mmol/L (21-32) Anion Gap 14 (6-14) Blood Urea Nitrogen 19 mg/dL (8-26) Creatinine 1.0 mg/dL (0.7-1.3) Estimated GFR (Cockcroft-Gault) 81.9 BUN/Creatinine Ratio 19 (6-20) Glucose Level 101 mg/dL (70-99) Calcium Level 8.0 mg/dL (8.5-10.1) Total Bilirubin 0.5 mg/dL (0.2-1.0) Aspartate Amino Transf (AST/SGOT) 19 U/L (15-37) Alanine Aminotransferase (ALT/SGPT) 30 U/L (16-63) Alkaline Phosphatase 67 U/L (46-116) Total Protein 5.4 g/dL (6.4-8.2) Albumin 2.7 g/dL (3.4-5.0) Albumin/Globulin Ratio 1.0 (1.0-1.7) Glucose (Fingerstick) 92 mg/dL (70-99) 86 mg/dL (70-99) 108 mg/dL (70-99) Test 08/06/19 04:00 08/06/19 07:16 White Blood Count 7.4 x10^3/uL (4.0-11.0) Red Blood Count 4.36 x10^6/uL (4.30-5.70) Hemoglobin 12.9 g/dL (13.0-17.5) Hematocrit 37.8 % (39.0-53.0) Mean Corpuscular Volume 87 fL (79-100) Mean Corpuscular Hemoglobin 30 pg (25-35) Mean Corpuscular Hemoglobin Concent 34 g/dL (31-37) Red Cell Distribution Width 14.1 % (11.5-14.5) Platelet Count 269 x10^3/uL (140-400) Neutrophils (%) (Auto) 50 % (31-73) Lymphocytes (%) (Auto) 30 % (24-48) Monocytes (%) (Auto) 16 % (0-9) Eosinophils (%) (Auto) 3 % (0-3) Basophils (%) (Auto) 0 % (0-3) Neutrophils # (Auto) 3.7 x10^3/uL (1.8-7.7) Lymphocytes # (Auto) 2.3 x10^3/uL (1.0-4.8) Monocytes # (Auto) 1.2 x10^3/uL (0.0-1.1) Eosinophils # (Auto) 0.2 x10^3/uL (0.0-0.7) Basophils # (Auto) 0.0 x10^3/uL (0.0-0.2) Sodium Level 146 mmol/L (136-145) Potassium Level 3.4 mmol/L (3.5-5.1) Chloride Level 110 mmol/L (98-107) Carbon Dioxide Level 28 mmol/L (21-32) Anion Gap 8 (6-14) Blood Urea Nitrogen 16 mg/dL (8-26) Creatinine 0.9 mg/dL (0.7-1.3) Estimated GFR (Cockcroft-Gault) 92.5 BUN/Creatinine Ratio 18 (6-20) Glucose Level 118 mg/dL (70-99) Calcium Level 7.8 mg/dL (8.5-10.1) Total Bilirubin 0.2 mg/dL (0.2-1.0) Aspartate Amino Transf (AST/SGOT) 18 U/L (15-37) Alanine Aminotransferase (ALT/SGPT) 25 U/L (16-63) Alkaline Phosphatase 61 U/L (46-116) Total Protein 5.4 g/dL (6.4-8.2) Albumin 2.5 g/dL (3.4-5.0) Albumin/Globulin Ratio 0.9 (1.0-1.7) Glucose (Fingerstick) 105 mg/dL (70-99) Microbiology 07/30/19 Urine Culture - Final, Complete Medications Current Medications Sodium Chloride 1,000 ml @ 1,000 mls/hr 1X ONCE IV Last administered on 07/30/19at 20:15; Start 07/30/19 at 20:15; Stop 07/30/19 at 21:14; Status DC Ondansetron HCl (Zofran) 4 mg 1X ONCE IV Last administered on 07/30/19at 20:21; Start 07/30/19 at 20:15; Stop 07/30/19 at 20:24; Status DC Famotidine (Pepcid Vial) 20 mg 1X ONCE IVP Last administered on 07/30/19at 20:21; Start 07/30/19 at 20:15; Stop 07/30/19 at 20:24; Status DC Ondansetron HCl (Zofran) 4 mg PRN Q8HRS PRN IV NAUSEA/VOMITING; Start 07/30/19 at 21:45; Stop 07/31/19 at 08:28; Status DC Sodium Chloride 1,000 ml @ 150 mls/hr Q6H40M IV Last administered on 07/31/19at 18:15; Start 07/30/19 at 21:45; Stop 07/31/19 at 21:44; Status DC Pantoprazole Sodium (PROTONIX VIAL for IV PUSH) 40 mg DAILYAC IVP Last administered on 08/03/19at 09:57; Start 07/31/19 at 07:30; Stop 08/03/19 at 10:08; Status DC Ondansetron HCl (Zofran) 4 mg PRN Q4HRS PRN IV NAUSEA/VOMITING; Start 07/31/19 at 08:30 Insulin Human Lispro (HumaLOG) 0-9 UNITS TIDACHC SQ ; Start 07/31/19 at 11:30 Dextrose (Dextrose 50%-Water Syringe) 12.5 gm PRN Q15MIN PRN IV SEE COMMENTS; Start 07/31/19 at 08:30 Levetiracetam 1000 mg/Dextrose 110 ml @ 440 mls/hr Q12HR IV Last administered on 08/01/19at 09:45; Start 07/31/19 at 09:00; Stop 08/02/19 at 08:26; Status DC Enoxaparin Sodium (Lovenox 40mg Syringe) 40 mg Q24H SQ Last administered on 08/06/19at 09:12; Start 07/31/19 at 09:00 Magnesium Sulfate/ Dextrose 100 ml @ 100 mls/hr 1X ONCE IV Last administered on 07/31/19at 09:01; Start 07/31/19 at 09:00; Stop 07/31/19 at 09:59; Status DC Lorazepam (Ativan) 1 mg PRN TID PRN PO AGITATION Last administered on 08/01/19at 21:26; Start 07/31/19 at 08:45 Oxcarbazepine (Trileptal) 600 mg BID PO Last administered on 08/05/19at 20:58; Start 07/31/19 at 09:00 Polyethylene Glycol (miraLAX PACKET) 17 gm DAILY PO ; Start 07/31/19 at 09:00; Stop 08/04/19 at 11:00; Status DC Docusate Sodium (Colace) 100 mg QHS PO Last administered on 08/05/19at 20:58; Start 07/31/19 at 21:00 Bisacodyl (Dulcolax Supp) 10 mg PRN DAILY PRN MO CONSTIPATION; Start 07/31/19 at 14:15; Stop 08/01/19 at 15:56; Status DC Bisacodyl (Dulcolax Supp) 10 mg 1X ONCE MO Last administered on 08/01/19at 11:20; Start 08/01/19 at 08:15; Stop 08/01/19 at 08:16; Status DC Bisacodyl (Dulcolax Supp) 10 mg PRN DAILY PRN MO CONSTIPATION; Start 08/01/19 at 08:15 Levetiracetam (Keppra) 1,000 mg BID PO Last administered on 08/05/19at 20:58; Start 08/02/19 at 09:00 Levetiracetam 1000 mg/Dextrose 110 ml @ 440 mls/hr 1X ONCE IV Last administered on 08/02/19at 09:59; Start 08/02/19 at 10:00; Stop 08/02/19 at 10:14; Status DC Lorazepam (Ativan Inj) 0.5 mg TID PRN PRN IVP ANXIETY / AGITATION Last administered on 08/02/19at 15:56; Start 08/02/19 at 13:45 Lorazepam (Ativan Inj) 0.5 mg PRN TID PRN IVP ANXIETY / AGITATION; Start 08/02/19 at 14:00; Status UNV Pantoprazole Sodium (Protonix) 40 mg DAILYAC PO Last administered on 08/06/19at 05:49; Start 08/04/19 at 07:30 Polyethylene Glycol (miraLAX PACKET) 17 gm PRN DAILY PRN PO constipation; Start 08/04/19 at 11:00 Lubiprostone (Amitiza) 24 mcg BIDWMEALS PO Last administered on 08/05/19at 10:05; Start 08/04/19 at 17:00 Acetaminophen (Tylenol) 650 mg PRN Q6HRS PRN PO FEVER > 100.3'F; Start 08/04/19 at 20:45 Sodium Chloride 1,000 ml @ 100 mls/hr Q10H IV ; Start 08/05/19 at 12:30; Stop 08/05/19 at 12:25; Status DC Potassium Chloride 30 meq/ Dextrose/Sodium Chloride 1,015 ml @ 100 mls/hr Q10H9M IV Last administered on 08/06/19at 05:45; Start 08/05/19 at 13:00 Polyethylene Glycol (miraLAX PACKET) 17 gm DAILY PO ; Start 08/07/19 at 09:00 Bisacodyl (Dulcolax Tab) 5 mg PRN DAILY PRN PO CONSTIPATION- 2ND CHOICE; Start 08/06/19 at 10:15 Active Scripts Active Ativan (Lorazepam) 1 Mg Tablet 1 Mg PO TID PRN [place] 5-325 Tablet (Acetaminophen/Hydrocodone Bitart) 1 Each Tablet 1 Tab PO Q6HRS PRN Reported Levetiracetam 1,000 Mg Tablet 1,000 Mg PO BID Iron (Ferrous Sulfate) 325 Mg Tablet 325 Mg PO WEEKLY Docusate Sodium 100 Mg Tablet 100 Mg PO HS Tranxene T-Tab (Clorazepate Dipotassium) 3.75 Mg Tablet 3.75 Mg PO HS Senna (Sennosides) 8.6 Mg Tablet 8.6 Mg PO BID Ranitidine Hcl 150 Mg Tablet 150 Mg PO DAILY Trileptal (Oxcarbazepine) 300 Mg Tablet 600 Mg PO BID Polyethylene Glycol 3350 255 Gm Powder 17 Gm PO DAILY Vitals/I & O Vital Sign - Last 24 Hours 08/05/19 08/05/19 08/05/19 08/05/19 10:45 15:00 19:00 20:00 Temp 98.0 98.0 97.5 98.0 98.0 97.5 Pulse 118 110 97 Resp 17 17 18 B/P (MAP) 115/70 (85) 108/78 (88) 116/72 (87) Pulse Ox 95 95 93 O2 Delivery Room Air Room Air Room Air Room Air 08/05/19 08/06/19 08/06/19 23:00 03:00 07:00 Temp 97.7 98.8 98.1 97.7 98.8 98.1 Pulse 98 96 97 Resp 18 18 16 B/P (MAP) 123/69 (87) 97/50 (66) 107/69 (82) Pulse Ox 95 97 95 O2 Delivery Room Air Room Air Room Air Intake and Output 08/05/19 08/05/19 08/06/19 14:59 22:59 06:59 Intake Total 200 ml Balance 200 ml Hemodynamically unstable?: No Is patient in severe pain?: No Is NPO status required?: No ARIES QUINONES MD Aug 06, 2019 10:13
[2019-08-06] MEDS ORDERED: BISACODYL 5 MG TABLET.DR. PO PRN (10:15)
[2019-08-06] MEDS ORDERED: IV 1/2 NORMAL SALINE 1,000 ML IV ONE (10:30)
[2019-08-06] MEDS: POTASSIUM CHLORIDE 10MEQ 100 ML IV SCH ×4 (10:51→14:45)
[2019-08-06 11:00] VITALS: BP 110/70
[2019-08-06 15:00] VITALS: BP 112/67
[2019-08-06 19:00] VITALS: BP 105/72
[2019-08-06] MEDS ORDERED: MINERAL OIL 133 ML ENEMA. PR ONE (19:00)
[2019-08-06] MEDS ORDERED: BISACODYL 10 MG SUPP.RECT. PR ONE (19:00)
[2019-08-06] MEDS ORDERED: BISACODYL 10 MG SUPP.RECT. PR PRN (19:00)
[2019-08-06] MEDS: DOCUSATE SODIUM 100 MG CAPSULE. PO SCH (20:23)
[2019-08-06 23:00] VITALS: BP 102/62
[2019-08-07 03:00] VITALS: BP 113/73
[2019-08-07 05:10] LABS: CALCIUM 7.9 mg/dL (8.5-10.1); CREATININE 0.9 mg/dL (0.7-1.3); GFR 92.5; POTASSIUM 3.5 mmol/L (3.5-5.1)
[2019-08-07 07:00] VITALS: BP 109/76
[2019-08-07] MEDS: INSULIN LISPRO 300 UNITS/3 ML VIAL. SQ SCH ×4 (07:30→21:00)
[2019-08-07] MEDS: PANTOPRAZOLE 40 MG TABLET.DR. PO SCH (07:30)
[2019-08-07] MEDS: LUBIPROSTONE 24 MCG CAPSULE PO SCH ×2 (08:00→17:00)
--- NOTE | 2019-08-07 08:30 | RAD ---
CT abdomen and pelvis without contrast PQRS statement: CT scans at this facility use dose reduction including either automated exposure control, iterative reconstructions, and /or weight based radiation dosing via mA and kV modification when appropriate to reduce radiation dose to as low as reasonably achievable. HISTORY: Fecal impaction. Abdominal distention. Abdomen findings: Exaggerated thoracolumbar scoliosis. Small left greater than right dependent pleural effusions. Mild dependent right lower lobe atelectasis. There is moderate volume loss and opacity with consolidation at the basilar left lower lobe and heterogeneous opacity inferior lingula. Coiled catheter at the upper abdomen extending up the anterior chest wall the [id number] presumably a ventriculoperitoneal catheter. 2 cm gallstone gallbladder neck. Liver, spleen, pancreas, adrenal glands and kidneys are unremarkable. No small bowel obstruction. Tortuous sigmoid colon. Moderate volume of stool within the large bowel. Appendix not visualized may be obscured by surrounding small bowel loops no changes of appendicitis evident. No abdominal free fluid. Pelvis findings: Fecal impaction of the rectum with a large volume of stool which has a diameter of 7 cm, and circumferential markedly abnormal wall thickening of the rectum for several centimeters down to the anorectal junction. Mild distention urinary bladder.. Prostate unremarkable. Right hip dysplasia. IMPRESSION: 1. Fecal impaction with a large volume of stool within the rectum. There is circumferential abnormal rectal wall thickening which could be distal colitis or rectal malignancy. 2. Small pleural effusions. There is moderate volume loss and opacity of the left lower lobe with basilar consolidation as well as heterogeneous opacity of the inferior lingula which could be asymmetric atelectasis versus pneumonia. No pulmonary edema evident. 3. Gallstone. 4. Other incidental findings as described above. Electronically signed by: Darci Rocha MD (08/07/2019 8:27 AM) [id number]
[2019-08-07] MEDS: POLYETHYLENE GLYCOL 3350 17 GM PACKET. PO SCH (08:50)
[2019-08-07] MEDS: DEXTROSE IV SCH ×3 (08:52→18:22)
[2019-08-07] MEDS: POTASSIUM CHLORIDE IV SCH ×3 (08:52→18:22)
[2019-08-07] MEDS: NACL IV SCH ×3 (08:52→18:22)
[2019-08-07] MEDS: ENOXAPARIN 40 MG/0.4 ML SYRINGE. SQ SCH (08:53)
[2019-08-07] MEDS: levETIRAcetam 500 MG TABLET PO SCH ×2 (09:00→21:09)
[2019-08-07] MEDS: OXcarbazepine 300 MG TABLET PO SCH ×2 (09:00→21:09)
--- NOTE | 2019-08-07 09:13 | PDOC ---
PROGRESS NOTES Chief Complaint Chief Complaint IMPRESSION ====== Gastroenteritis circumferential abnormal rectal wall thickening which could be distal colitis or rectal malignancy. 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 FEN - ADAT PPX - Lovenox FULL CODE Dispo - inpatient for likely bowel obstruction Continue constipation treatment long-term - refusing meds at times D/C HELD FOR LOW GRADE FEVER , STILL ON foft diet d5 03/07 NS WITH 20KCL/LITER 100CC /HR CONSIDER COLON IMAGING 08/05 POOR fluid intake po HARDLY ANY INTAKE PO X 24 HRS 08/06 CEA , repeat enema d/w case mgt 39 MIN PT exam, chart review, > 50% of time spent with exam, chart review, pt care coordination History of Present Illness History of Present Illness 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 Foul-smelling emesis. CR 1.5 07/31: Afebrile, tachycardic overnight. Minimal stooling after enema yesterday, CR 1.0. KUB with improved small bowel less distended, apparently in same degree of fecal impaction. Asking for food today. Very large bowel movement. Accidentally dislodged his IV as well. Replaced Afebrile overnight. Tolerated advancing diet well. IV replaced. tries to spit his meds back to nursing. Of note has some behavioral issues. Staff not available to receive discharge today Plan: Advance diet. Cont bowel regimen One last IV keppra dose Likely back to fpc in next 24-48 hours Vitals Vitals Vital Signs Date Time Temp Pulse Resp B/P (MAP) Pulse Ox O2 Delivery O2 Flow Rate FiO2 08/07/19 07:00 98.0 79 18 109/76 (87) 94 Room Air 98.0 Physical Exam General: Alert, Cooperative, No acute distress Heart: Regular rate, Normal S1, Normal S2, Other (tachy) Lungs: Clear, Other Abdomen: Normal bowel sounds, Soft, No tenderness, No masses Extremities: No clubbing, No cyanosis Skin: No rashes, No breakdown Labs LABS PATIENT: ROBBY LAU ACCOUNT: [id number] : 1975 LOCATION: [address] [place] [address] AGE: 44 SEX: M EXAM STATUS: ADM IN ORD. PHYSICIAN: ARIES QUINONES MD REASON: FECAL IMPACTION, DISTENSION PROCEDURE: CT ABDOMEN PELVIS WO CONTRAST CT abdomen and pelvis without contrast PQRS statement: CT scans at this facility use dose reduction including either automated exposure control, iterative reconstructions, and /or weight based radiation dosing via mA and kV modification when appropriate to reduce radiation dose to as low as reasonably achievable. HISTORY: Fecal impaction. Abdominal distention. Abdomen findings: Exaggerated thoracolumbar scoliosis. Small left greater than right dependent pleural effusions. Mild dependent right lower lobe atelectasis. There is moderate volume loss and opacity with consolidation at the basilar left lower lobe and heterogeneous opacity inferior lingula. Coiled catheter at the upper abdomen extending up the anterior chest wall the [id number] presumably a ventriculoperitoneal catheter. 2 cm gallstone gallbladder neck. Liver, spleen, pancreas, adrenal glands and kidneys are unremarkable. No small bowel obstruction. Tortuous sigmoid colon. Moderate volume of stool within the large bowel. Appendix not visualized may be obscured by surrounding small bowel loops no changes of appendicitis evident. No abdominal free fluid. Pelvis findings: Fecal impaction of the rectum with a large volume of stool which has a diameter of 7 cm, and circumferential markedly abnormal wall thickening of the rectum for several centimeters down to the anorectal junction. Mild distention urinary bladder.. Prostate unremarkable. Right hip dysplasia. IMPRESSION: 1. Fecal impaction with a large volume of stool within the rectum. There is circumferential abnormal rectal wall thickening which could be distal colitis or rectal malignancy. 2. Small pleural effusions. There is moderate volume loss and opacity of the left lower lobe with basilar consolidation as well as heterogeneous opacity of the inferior lingula which could be asymmetric atelectasis versus pneumonia. No pulmonary edema evident. 3. Gallstone. 4. Other incidental findings as described above. Electronically signed by: Darci Rocha MD (08/07/2019 8:27 AM) [id number] Laboratory Tests Test 08/06/19 11:53 08/06/19 16:42 08/06/19 20:10 08/07/19 03:55 Glucose (Fingerstick) 85 mg/dL (70-99) 98 mg/dL (70-99) 117 mg/dL (70-99) Sodium Level 141 mmol/L (136-145) Potassium Level 3.5 mmol/L (3.5-5.1) Chloride Level 106 mmol/L (98-107) Carbon Dioxide Level 27 mmol/L (21-32) Anion Gap 8 (6-14) Blood Urea Nitrogen 10 mg/dL (8-26) Creatinine 0.9 mg/dL (0.7-1.3) Estimated GFR (Cockcroft-Gault) 92.5 Glucose Level 101 mg/dL (70-99) Calcium Level 7.9 mg/dL (8.5-10.1) Test 08/07/19 07:12 Glucose (Fingerstick) 106 mg/dL (70-99) Assessment and Plan Assessmemt and Plan Problems Medical Problems: (1) Dehydration Status: Acute (2) Hypernatremia Status: Acute (3) Nausea and vomiting Status: Acute Comment Review of Relevant I have reviewed the following items sameer (where applicable) has been applied. Labs Laboratory Tests Test 08/05/19 10:35 08/05/19 11:20 08/05/19 16:52 08/05/19 20:14 Sodium Level 149 mmol/L (136-145) Potassium Level 3.3 mmol/L (3.5-5.1) Chloride Level 111 mmol/L (98-107) Carbon Dioxide Level 24 mmol/L (21-32) Anion Gap 14 (6-14) Blood Urea Nitrogen 19 mg/dL (8-26) Creatinine 1.0 mg/dL (0.7-1.3) Estimated GFR (Cockcroft-Gault) 81.9 BUN/Creatinine Ratio 19 (6-20) Glucose Level 101 mg/dL (70-99) Calcium Level 8.0 mg/dL (8.5-10.1) Total Bilirubin 0.5 mg/dL (0.2-1.0) Aspartate Amino Transf (AST/SGOT) 19 U/L (15-37) Alanine Aminotransferase (ALT/SGPT) 30 U/L (16-63) Alkaline Phosphatase 67 U/L (46-116) Total Protein 5.4 g/dL (6.4-8.2) Albumin 2.7 g/dL (3.4-5.0) Albumin/Globulin Ratio 1.0 (1.0-1.7) Glucose (Fingerstick) 92 mg/dL (70-99) 86 mg/dL (70-99) 108 mg/dL (70-99) Test 08/06/19 04:00 08/06/19 07:16 08/06/19 11:53 08/06/19 16:42 White Blood Count 7.4 x10^3/uL (4.0-11.0) Red Blood Count 4.36 x10^6/uL (4.30-5.70) Hemoglobin 12.9 g/dL (13.0-17.5) Hematocrit 37.8 % (39.0-53.0) Mean Corpuscular Volume 87 fL (79-100) Mean Corpuscular Hemoglobin 30 pg (25-35) Mean Corpuscular Hemoglobin Concent 34 g/dL (31-37) Red Cell Distribution Width 14.1 % (11.5-14.5) Platelet Count 269 x10^3/uL (140-400) Neutrophils (%) (Auto) 50 % (31-73) Lymphocytes (%) (Auto) 30 % (24-48) Monocytes (%) (Auto) 16 % (0-9) Eosinophils (%) (Auto) 3 % (0-3) Basophils (%) (Auto) 0 % (0-3) Neutrophils # (Auto) 3.7 x10^3/uL (1.8-7.7) Lymphocytes # (Auto) 2.3 x10^3/uL (1.0-4.8) Monocytes # (Auto) 1.2 x10^3/uL (0.0-1.1) Eosinophils # (Auto) 0.2 x10^3/uL (0.0-0.7) Basophils # (Auto) 0.0 x10^3/uL (0.0-0.2) Sodium Level 146 mmol/L (136-145) Potassium Level 3.4 mmol/L (3.5-5.1) Chloride Level 110 mmol/L (98-107) Carbon Dioxide Level 28 mmol/L (21-32) Anion Gap 8 (6-14) Blood Urea Nitrogen 16 mg/dL (8-26) Creatinine 0.9 mg/dL (0.7-1.3) Estimated GFR (Cockcroft-Gault) 92.5 BUN/Creatinine Ratio 18 (6-20) Glucose Level 118 mg/dL (70-99) Calcium Level 7.8 mg/dL (8.5-10.1) Total Bilirubin 0.2 mg/dL (0.2-1.0) Aspartate Amino Transf (AST/SGOT) 18 U/L (15-37) Alanine Aminotransferase (ALT/SGPT) 25 U/L (16-63) Alkaline Phosphatase 61 U/L (46-116) Total Protein 5.4 g/dL (6.4-8.2) Albumin 2.5 g/dL (3.4-5.0) Albumin/Globulin Ratio 0.9 (1.0-1.7) Glucose (Fingerstick) 105 mg/dL (70-99) 85 mg/dL (70-99) 98 mg/dL (70-99) Test 08/06/19 20:10 08/07/19 03:55 08/07/19 07:12 Glucose (Fingerstick) 117 mg/dL (70-99) 106 mg/dL (70-99) Sodium Level 141 mmol/L (136-145) Potassium Level 3.5 mmol/L (3.5-5.1) Chloride Level 106 mmol/L (98-107) Carbon Dioxide Level 27 mmol/L (21-32) Anion Gap 8 (6-14) Blood Urea Nitrogen 10 mg/dL (8-26) Creatinine 0.9 mg/dL (0.7-1.3) Estimated GFR (Cockcroft-Gault) 92.5 Glucose Level 101 mg/dL (70-99) Calcium Level 7.9 mg/dL (8.5-10.1) Laboratory Tests Test 08/06/19 11:53 08/06/19 16:42 08/06/19 20:10 08/07/19 03:55 Glucose (Fingerstick) 85 mg/dL (70-99) 98 mg/dL (70-99) 117 mg/dL (70-99) Sodium Level 141 mmol/L (136-145) Potassium Level 3.5 mmol/L (3.5-5.1) Chloride Level 106 mmol/L (98-107) Carbon Dioxide Level 27 mmol/L (21-32) Anion Gap 8 (6-14) Blood Urea Nitrogen 10 mg/dL (8-26) Creatinine 0.9 mg/dL (0.7-1.3) Estimated GFR (Cockcroft-Gault) 92.5 Glucose Level 101 mg/dL (70-99) Calcium Level 7.9 mg/dL (8.5-10.1) Test 08/07/19 07:12 Glucose (Fingerstick) 106 mg/dL (70-99) Microbiology 07/30/19 Urine Culture - Final, Complete Medications Current Medications Sodium Chloride 1,000 ml @ 1,000 mls/hr 1X ONCE IV Last administered on 07/30/19at 20:15; Start 07/30/19 at 20:15; Stop 07/30/19 at 21:14; Status DC Ondansetron HCl (Zofran) 4 mg 1X ONCE IV Last administered on 07/30/19at 20:21; Start 07/30/19 at 20:15; Stop 07/30/19 at 20:24; Status DC Famotidine (Pepcid Vial) 20 mg 1X ONCE IVP Last administered on 07/30/19at 20:21; Start 07/30/19 at 20:15; Stop 07/30/19 at 20:24; Status DC Ondansetron HCl (Zofran) 4 mg PRN Q8HRS PRN IV NAUSEA/VOMITING; Start 07/30/19 at 21:45; Stop 07/31/19 at 08:28; Status DC Sodium Chloride 1,000 ml @ 150 mls/hr Q6H40M IV Last administered on 07/31/19at 18:15; Start 07/30/19 at 21:45; Stop 07/31/19 at 21:44; Status DC Pantoprazole Sodium (PROTONIX VIAL for IV PUSH) 40 mg DAILYAC IVP Last administered on 08/03/19at 09:57; Start 07/31/19 at 07:30; Stop 08/03/19 at 10:08; Status DC Ondansetron HCl (Zofran) 4 mg PRN Q4HRS PRN IV NAUSEA/VOMITING; Start 07/31/19 at 08:30 Insulin Human Lispro (HumaLOG) 0-9 UNITS TIDACHC SQ ; Start 07/31/19 at 11:30 Dextrose (Dextrose 50%-Water Syringe) 12.5 gm PRN Q15MIN PRN IV SEE COMMENTS; Start 07/31/19 at 08:30 Levetiracetam 1000 mg/Dextrose 110 ml @ 440 mls/hr Q12HR IV Last administered on 08/01/19at 09:45; Start 07/31/19 at 09:00; Stop 08/02/19 at 08:26; Status DC Enoxaparin Sodium (Lovenox 40mg Syringe) 40 mg Q24H SQ Last administered on 08/07/19at 08:53; Start 07/31/19 at 09:00 Magnesium Sulfate/ Dextrose 100 ml @ 100 mls/hr 1X ONCE IV Last administered on 07/31/19at 09:01; Start 07/31/19 at 09:00; Stop 07/31/19 at 09:59; Status DC Lorazepam (Ativan) 1 mg PRN TID PRN PO AGITATION Last administered on 08/01/19at 21:26; Start 07/31/19 at 08:45 Oxcarbazepine (Trileptal) 600 mg BID PO Last administered on 08/06/19at 20:22; Start 07/31/19 at 09:00 Polyethylene Glycol (miraLAX PACKET) 17 gm DAILY PO ; Start 07/31/19 at 09:00; Stop 08/04/19 at 11:00; Status DC Docusate Sodium (Colace) 100 mg QHS PO Last administered on 08/06/19at 20:23; Start 07/31/19 at 21:00 Bisacodyl (Dulcolax Supp) 10 mg PRN DAILY PRN AL CONSTIPATION; Start 07/31/19 at 14:15; Stop 08/01/19 at 15:56; Status DC Bisacodyl (Dulcolax Supp) 10 mg 1X ONCE AL Last administered on 08/01/19at 11:20; Start 08/01/19 at 08:15; Stop 08/01/19 at 08:16; Status DC Bisacodyl (Dulcolax Supp) 10 mg PRN DAILY PRN AL CONSTIPATION; Start 08/01/19 at 08:15; Stop 08/06/19 at 18:54; Status DC Levetiracetam (Keppra) 1,000 mg BID PO Last administered on 08/06/19at 20:21; Start 08/02/19 at 09:00 Levetiracetam 1000 mg/Dextrose 110 ml @ 440 mls/hr 1X ONCE IV Last administered on 08/02/19at 09:59; Start 08/02/19 at 10:00; Stop 08/02/19 at 10:14; Status DC Lorazepam (Ativan Inj) 0.5 mg TID PRN PRN IVP ANXIETY / AGITATION Last administered on 08/02/19at 15:56; Start 08/02/19 at 13:45 Lorazepam (Ativan Inj) 0.5 mg PRN TID PRN IVP ANXIETY / AGITATION; Start 08/02/19 at 14:00; Status UNV Pantoprazole Sodium (Protonix) 40 mg DAILYAC PO Last administered on 08/06/19at 05:49; Start 08/04/19 at 07:30 Polyethylene Glycol (miraLAX PACKET) 17 gm PRN DAILY PRN PO constipation; Start 08/04/19 at 11:00 Lubiprostone (Amitiza) 24 mcg BIDWMEALS PO Last administered on 08/05/19at 10:05; Start 08/04/19 at 17:00 Acetaminophen (Tylenol) 650 mg PRN Q6HRS PRN PO FEVER > 100.3'F; Start 08/04/19 at 20:45 Sodium Chloride 1,000 ml @ 100 mls/hr Q10H IV ; Start 08/05/19 at 12:30; Stop 08/05/19 at 12:25; Status DC Potassium Chloride 30 meq/ Dextrose/Sodium Chloride 1,015 ml @ 100 mls/hr Q10H9M IV Last administered on 08/07/19at 08:52; Start 08/05/19 at 13:00 Polyethylene Glycol (miraLAX PACKET) 17 gm DAILY PO ; Start 08/07/19 at 09:00 Bisacodyl (Dulcolax Tab) 5 mg PRN DAILY PRN PO CONSTIPATION- 2ND CHOICE; Start 08/06/19 at 10:15 Sodium Chloride 1,000 ml @ 500 mls/hr 1X ONCE IV Last administered on 08/06/19at 10:51; Start 08/06/19 at 10:30; Stop 08/06/19 at 12:29; Status DC Potassium Chloride/Water 100 ml @ 100 mls/hr Q1H IV Last administered on 08/06/19at 14:45; Start 08/06/19 at 11:00; Stop 08/06/19 at 14:59; Status DC Mineral Oil (Fleet Mineral Oil) 133 ml 1X ONCE AL Last administered on 08/06/19at 22:39; Start 08/06/19 at 19:00; Stop 08/06/19 at 19:01; Status DC Bisacodyl (Dulcolax Supp) 10 mg 1X ONCE AL Last administered on 08/06/19at 20:21; Start 08/06/19 at 19:00; Stop 08/06/19 at 19:01; Status DC Bisacodyl (Dulcolax Supp) 10 mg PRN DAILY PRN AL CONSTIPATION; Start 08/06/19 at 19:00 Active Scripts Active Ativan (Lorazepam) 1 Mg Tablet 1 Mg PO TID PRN [place] 5-325 Tablet (Acetaminophen/Hydrocodone Bitart) 1 Each Tablet 1 Tab PO Q6HRS PRN Reported Levetiracetam 1,000 Mg Tablet 1,000 Mg PO BID Iron (Ferrous Sulfate) 325 Mg Tablet 325 Mg PO WEEKLY Docusate Sodium 100 Mg Tablet 100 Mg PO HS Tranxene T-Tab (Clorazepate Dipotassium) 3.75 Mg Tablet 3.75 Mg PO HS Senna (Sennosides) 8.6 Mg Tablet 8.6 Mg PO BID Ranitidine Hcl 150 Mg Tablet 150 Mg PO DAILY Trileptal (Oxcarbazepine) 300 Mg Tablet 600 Mg PO BID Polyethylene Glycol 3350 255 Gm Powder 17 Gm PO DAILY Vitals/I & O Vital Sign - Last 24 Hours 08/06/19 08/06/19 08/06/19 08/06/19 11:00 15:00 19:00 20:00 Temp 98.0 98.0 97.8 98.0 98.0 97.8 Pulse 98 98 84 Resp 16 18 18 B/P (MAP) 110/70 (83) 112/67 (82) 105/72 (83) Pulse Ox 95 96 95 O2 Delivery Room Air Room Air Room Air Room Air 08/06/19 08/07/19 08/07/19 23:00 03:00 07:00 Temp 98.9 98.1 98.0 98.9 98.1 98.0 Pulse 94 89 79 Resp 18 18 B/P (MAP) 102/62 (75) 113/73 (86) 109/76 (87) Pulse Ox 94 95 94 O2 Delivery Room Air Room Air Room Air Intake and Output 08/06/19 08/06/19 08/07/19 15:00 23:00 07:00 Intake Total 0 ml Balance 0 ml Hemodynamically unstable?: No Is patient in severe pain?: No Is NPO status required?: No ARIES QUINONES MD Aug 07, 2019 09:13
--- NOTE | 2019-08-07 09:37 | PDOC ---
Objective: Objective: D/w nurse - received report of loose stools overnight. Vital Signs: Vital Signs Date Time Temp Pulse Resp B/P (MAP) Pulse Ox O2 Delivery O2 Flow Rate FiO2 08/07/19 07:00 98.0 79 18 109/76 (87) 94 Room Air 98.0 Labs: Laboratory Tests Test 08/06/19 11:53 08/06/19 16:42 08/06/19 20:10 08/07/19 07:12 Glucose (Fingerstick) 85 mg/dL (70-99) 98 mg/dL (70-99) 117 mg/dL (70-99) 106 mg/dL (70-99) Imaging: CT A/P IMPRESSION: 1. Fecal impaction with a large volume of stool within the rectum. There is circumferential abnormal rectal wall thickening which could be distal colitis or rectal malignancy. 2. Small pleural effusions. There is moderate volume loss and opacity of the left lower lobe with basilar consolidation as well as heterogeneous opacity of the inferior lingula which could be asymmetric atelectasis versus pneumonia. No pulmonary edema evident. 3. Gallstone. 4. Other incidental findings as described above. PE: GEN: NAD LUNGS: clear anteriorly HEART: RRR ABD: soft, BS+ NEURO/PSYCH: sleeping, did not awaken during exam A/P: Constipation/fecal impaction - is stooling -- CT from today as above - will try another enema - Miralax was held due to loose stools and pt refuses Amitiza. Justicifation of Admission Dx: Justifications for Admission: Justification of Admission Dx: Yes MARTA CHAND Aug 07, 2019 09:37
--- NOTE | 2019-08-07 10:15 | NUR ---
tap water enema given approx. 500cc in. Immediate return off approx. 100cc liquid stool into enema tubing.
[2019-08-07 11:00] VITALS: BP 110/80
--- NOTE | 2019-08-07 11:38 | NUR ---
SW following. Discussed with RN, pt at 25% of lunch yesterday and 50% of dinner. Pt had CT still showing fecal impaction and possible mass- enema this morning. Possibility of a scope if Dr. Reyes agrees. RAZIA will continue to follow for discharge planning.
[2019-08-07 13:50] LABS: FECAL OB PT NEGATIVE (NEG)
[2019-08-07 15:00] VITALS: BP 112/82
[2019-08-07 19:00] VITALS: BP 105/68
[2019-08-07] MEDS: DOCUSATE SODIUM 100 MG CAPSULE. PO SCH (21:09)
[2019-08-07 23:00] VITALS: BP 96/72
[2019-08-08 03:00] VITALS: BP 99/71
[2019-08-08 07:00] VITALS: BP 109/76
[2019-08-08] MEDS: INSULIN LISPRO 300 UNITS/3 ML VIAL. SQ SCH ×4 (07:30→21:00)
[2019-08-08] MEDS: PANTOPRAZOLE 40 MG TABLET.DR. PO SCH (07:30)
[2019-08-08] MEDS: LUBIPROSTONE 24 MCG CAPSULE PO SCH ×2 (08:00→16:38)
[2019-08-08] MEDS: POLYETHYLENE GLYCOL 3350 17 GM PACKET. PO SCH (08:08)
[2019-08-08] MEDS: levETIRAcetam 500 MG TABLET PO SCH (08:08)
[2019-08-08] MEDS: OXcarbazepine 300 MG TABLET PO SCH ×2 (08:09→21:50)
[2019-08-08] MEDS: NACL IV SCH ×2 (08:39→21:56)
[2019-08-08] MEDS: POTASSIUM CHLORIDE IV SCH ×2 (08:39→21:56)
[2019-08-08] MEDS: DEXTROSE IV SCH ×2 (08:39→21:56)
[2019-08-08] MEDS: ENOXAPARIN 40 MG/0.4 ML SYRINGE. SQ SCH (08:41)
[2019-08-08 11:00] VITALS: BP 104/67
--- NOTE | 2019-08-08 11:06 | PDOC ---
PROGRESS NOTES Chief Complaint Chief Complaint IMPRESSION ====== Gastroenteritis circumferential abnormal rectal wall thickening which could be distal colitis or rectal malignancy. hypernatremia, persists, volume depleted will need iv hypotonic fluids to correct Cerebral palsy Severe mental retardation Anemia Esophagitis Constipation Generalized seizure disorder - will convert to Keppra po h/o [employer] shunt placement FEN - ADAT PPX - Lovenox FULL CODE Dispo - inpatient for likely bowel obstruction Continue constipation treatment long-term - refusing meds at times D/C HELD FOR LOW GRADE FEVER , STILL ON foft diet d5 03/07 NS WITH 20KCL/LITER 100CC /HR CONSIDER COLON IMAGING 08/05 POOR fluid intake po HARDLY ANY INTAKE PO X 24 HRS 08/06 CEA , repeat enema 08/07 req tap h20 enema until clear, STILL HAS STOOL AFTER ENEMA d/w case mgt 29 MIN PT exam, chart review, > 50% of time spent with exam, chart review, pt care coordination History of Present Illness History of Present Illness Mr Pitt is a 43 [facility] M [facility] w/ PMHx Cerebral palsy, Severe mental retardation, Anemia, Esophagitis, Constipation, Generalized seizure disorder, h/o [employer] shunt placement who presents with pallor, N/V to ED 07/30: KUB with significant fecal impaction, given enema per GI had a lot of stool out, he has been vomiting. Foul-smelling emesis. CR 1.5 07/31: Afebrile, tachycardic overnight. Minimal stooling after enema yesterday, CR 1.0. KUB with improved small bowel less distended, apparently in same degree of fecal impaction. Asking for food today. Very large bowel movement. Accidentally dislodged his IV as well. Replaced Afebrile overnight. Tolerated advancing diet well. IV replaced. tries to spit his meds back to nursing. Of note has some behavioral issues. Staff not available to receive discharge today Plan: Advance diet. Cont bowel regimen One last IV keppra dose Likely back to half-way in next 24-48 hours Vitals Vitals Vital Signs Date Time Temp Pulse Resp B/P (MAP) Pulse Ox O2 Delivery O2 Flow Rate FiO2 08/08/19 07:37 Room Air 08/08/19 07:00 98.0 89 18 109/76 (87) 94 98.0 Physical Exam General: Alert, Cooperative, No acute distress Heart: Regular rate, Normal S1, Normal S2, Other (tachy) Lungs: Clear, Other Abdomen: Normal bowel sounds, Soft, No tenderness, No masses Extremities: No clubbing, No cyanosis Skin: No rashes, No breakdown Labs LABS Laboratory Tests Test 08/07/19 11:29 08/07/19 16:40 08/07/19 20:56 08/08/19 07:29 Glucose (Fingerstick) 108 mg/dL (70-99) 101 mg/dL (70-99) 104 mg/dL (70-99) 100 mg/dL (70-99) Assessment and Plan Assessmemt and Plan Problems Medical Problems: (1) Dehydration Status: Acute (2) Hypernatremia Status: Acute (3) Nausea and vomiting Status: Acute Comment Review of Relevant I have reviewed the following items sameer (where applicable) has been applied. Labs Laboratory Tests Test 08/06/19 11:53 08/06/19 16:42 08/06/19 20:10 08/07/19 03:55 Glucose (Fingerstick) 85 mg/dL (70-99) 98 mg/dL (70-99) 117 mg/dL (70-99) Sodium Level 141 mmol/L (136-145) Potassium Level 3.5 mmol/L (3.5-5.1) Chloride Level 106 mmol/L (98-107) Carbon Dioxide Level 27 mmol/L (21-32) Anion Gap 8 (6-14) Blood Urea Nitrogen 10 mg/dL (8-26) Creatinine 0.9 mg/dL (0.7-1.3) Estimated GFR (Cockcroft-Gault) 92.5 Glucose Level 101 mg/dL (70-99) Calcium Level 7.9 mg/dL (8.5-10.1) Test 08/07/19 07:12 08/07/19 10:10 08/07/19 11:29 08/07/19 16:40 Glucose (Fingerstick) 106 mg/dL (70-99) 108 mg/dL (70-99) 101 mg/dL (70-99) Stool Occult Blood Negative (NEG) Test 08/07/19 20:56 08/08/19 07:29 Glucose (Fingerstick) 104 mg/dL (70-99) 100 mg/dL (70-99) Laboratory Tests Test 08/07/19 11:29 08/07/19 16:40 08/07/19 20:56 08/08/19 07:29 Glucose (Fingerstick) 108 mg/dL (70-99) 101 mg/dL (70-99) 104 mg/dL (70-99) 100 mg/dL (70-99) Microbiology 07/30/19 Urine Culture - Final, Complete Medications Current Medications Sodium Chloride 1,000 ml @ 1,000 mls/hr 1X ONCE IV Last administered on 07/30/19at 20:15; Start 07/30/19 at 20:15; Stop 07/30/19 at 21:14; Status DC Ondansetron HCl (Zofran) 4 mg 1X ONCE IV Last administered on 07/30/19at 20:21; Start 07/30/19 at 20:15; Stop 07/30/19 at 20:24; Status DC Famotidine (Pepcid Vial) 20 mg 1X ONCE IVP Last administered on 07/30/19at 20:2 1; Start 07/30/19 at 20:15; Stop 07/30/19 at 20:24; Status DC Ondansetron HCl (Zofran) 4 mg PRN Q8HRS PRN IV NAUSEA/VOMITING; Start 07/30/19 at 21:45; Stop 07/31/19 at 08:28; Status DC Sodium Chloride 1,000 ml @ 150 mls/hr Q6H40M IV Last administered on 07/31/19at 18:15; Start 07/30/19 at 21:45; Stop 07/31/19 at 21:44; Status DC Pantoprazole Sodium (PROTONIX VIAL for IV PUSH) 40 mg DAILYAC IVP Last administered on 08/03/19at 09:57; Start 07/31/19 at 07:30; Stop 08/03/19 at 10:08; Status DC Ondansetron HCl (Zofran) 4 mg PRN Q4HRS PRN IV NAUSEA/VOMITING; Start 07/31/19 at 08:30 Insulin Human Lispro (HumaLOG) 0-9 UNITS TIDACHC SQ ; Start 07/31/19 at 11:30 Dextrose (Dextrose 50%-Water Syringe) 12.5 gm PRN Q15MIN PRN IV SEE COMMENTS; Start 07/31/19 at 08:30 Levetiracetam 1000 mg/Dextrose 110 ml @ 440 mls/hr Q12HR IV Last administered on 08/01/19at 09:45; Start 07/31/19 at 09:00; Stop 08/02/19 at 08:26; Status DC Enoxaparin Sodium (Lovenox 40mg Syringe) 40 mg Q24H SQ Last administered on 08/08/19at 08:41; Start 07/31/19 at 09:00 Magnesium Sulfate/ Dextrose 100 ml @ 100 mls/hr 1X ONCE IV Last administered on 07/31/19at 09:01; Start 07/31/19 at 09:00; Stop 07/31/19 at 09:59; Status DC Lorazepam (Ativan) 1 mg PRN TID PRN PO AGITATION Last administered on 08/01/19at 21:26; Start 07/31/19 at 08:45 Oxcarbazepine (Trileptal) 600 mg BID PO Last administered on 08/07/19at 21:09; Start 07/31/19 at 09:00 Polyethylene Glycol (miraLAX PACKET) 17 gm DAILY PO ; Start 07/31/19 at 09:00; Stop 08/04/19 at 11:00; Status DC Docusate Sodium (Colace) 100 mg QHS PO Last administered on 08/07/19at 21:09; Start 07/31/19 at 21:00 Bisacodyl (Dulcolax Supp) 10 mg PRN DAILY PRN ID CONSTIPATION; Start 07/31/19 at 14:15; Stop 08/01/19 at 15:56; Status DC Bisacodyl (Dulcolax Supp) 10 mg 1X ONCE ID Last administered on 08/01/19at 11:20; Start 08/01/19 at 08:15; Stop 08/01/19 at 08:16; Status DC Bisacodyl (Dulcolax Supp) 10 mg PRN DAILY PRN ID CONSTIPATION; Start 08/01/19 at 08:15; Stop 08/06/19 at 18:54; Status DC Levetiracetam (Keppra) 1,000 mg BID PO Last administered on 08/07/19at 21:09; Start 08/02/19 at 09:00 Levetiracetam 1000 mg/Dextrose 110 ml @ 440 mls/hr 1X ONCE IV Last administered on 08/02/19at 09:59; Start 08/02/19 at 10:00; Stop 08/02/19 at 10:14; Status DC Lorazepam (Ativan Inj) 0.5 mg TID PRN PRN IVP ANXIETY / AGITATION Last administered on 08/02/19at 15:56; Start 08/02/19 at 13:45 Lorazepam (Ativan Inj) 0.5 mg PRN TID PRN IVP ANXIETY / AGITATION; Start 08/02/19 at 14:00; Status UNV Pantoprazole Sodium (Protonix) 40 mg DAILYAC PO Last administered on 08/06/19at 05:49; Start 08/04/19 at 07:30 Polyethylene Glycol (miraLAX PACKET) 17 gm PRN DAILY PRN PO constipation; Start 08/04/19 at 11:00 Lubiprostone (Amitiza) 24 mcg BIDWMEALS PO Last administered on 08/05/19at 10:05; Start 08/04/19 at 17:00 Acetaminophen (Tylenol) 650 mg PRN Q6HRS PRN PO FEVER > 100.3'F; Start 08/04/19 at 20:45 Sodium Chloride 1,000 ml @ 100 mls/hr Q10H IV ; Start 08/05/19 at 12:30; Stop 08/05/19 at 12:25; Status DC Potassium Chloride 30 meq/ Dextrose/Sodium Chloride 1,015 ml @ 80 mls/hr [id number] IV Last administered on 08/08/19at 08:39; Start 08/05/19 at 13:00 Polyethylene Glycol (miraLAX PACKET) 17 gm DAILY PO ; Start 08/07/19 at 09:00 Bisacodyl (Dulcolax Tab) 5 mg PRN DAILY PRN PO CONSTIPATION- 2ND CHOICE; Start 08/06/19 at 10:15 Sodium Chloride 1,000 ml @ 500 mls/hr 1X ONCE IV Last administered on 08/06/19at 10:51; Start 08/06/19 at 10:30; Stop 08/06/19 at 12:29; Status DC Potassium Chloride/Water 100 ml @ 100 mls/hr Q1H IV Last administered on 08/06/19at 14:45; Start 08/06/19 at 11:00; Stop 08/06/19 at 14:59; Status DC Mineral Oil (Fleet Mineral Oil) 133 ml 1X ONCE ID Last administered on 08/06/19at 22:39; Start 08/06/19 at 19:00; Stop 08/06/19 at 19:01; Status DC Bisacodyl (Dulcolax Supp) 10 mg 1X ONCE ID Last administered on 08/06/19at 20:21; Start 08/06/19 at 19:00; Stop 08/06/19 at 19:01; Status DC Bisacodyl (Dulcolax Supp) 10 mg PRN DAILY PRN ID CONSTIPATION; Start 08/06/19 at 19:00 Active Scripts Active Ativan (Lorazepam) 1 Mg Tablet 1 Mg PO TID PRN Hildebran 5-325 Tablet (Acetaminophen/Hydrocodone Bitart) 1 Each Tablet 1 Tab PO Q6HRS PRN Reported Levetiracetam 1,000 Mg Tablet 1,000 Mg PO BID Iron (Ferrous Sulfate) 325 Mg Tablet 325 Mg PO WEEKLY Docusate Sodium 100 Mg Tablet 100 Mg PO HS Tranxene T-Tab (Clorazepate Dipotassium) 3.75 Mg Tablet 3.75 Mg PO HS Senna (Sennosides) 8.6 Mg Tablet 8.6 Mg PO BID Ranitidine Hcl 150 Mg Tablet 150 Mg PO DAILY Trileptal (Oxcarbazepine) 300 Mg Tablet 600 Mg PO BID Polyethylene Glycol 3350 255 Gm Powder 17 Gm PO DAILY Vitals/I & O Vital Sign - Last 24 Hours 08/07/19 08/07/19 08/07/19 08/07/19 15:00 19:00 20:00 23:00 Temp 98.0 98.3 98.0 98.0 98.3 98.0 Pulse 80 90 80 Resp 18 18 18 B/P (MAP) 112/82 (92) 105/68 (80) 96/72 (80) Pulse Ox 94 95 O2 Delivery Room Air Room Air 08/08/19 08/08/19 08/08/19 03:00 07:00 07:37 Temp 98.5 98.0 98.5 98.0 Pulse 91 89 Resp 18 18 B/P (MAP) 99/71 (80) 109/76 (87) Pulse Ox 95 94 O2 Delivery Room Air Intake and Output 08/07/19 08/07/19 08/08/19 15:00 23:00 07:00 Intake Total 100 ml 1380 ml Balance 100 ml 1380 ml Hemodynamically unstable?: No Is patient in severe pain?: No Is NPO status required?: No ARIES QUINONES MD Aug 08, 2019 11:05
[2019-08-08 15:00] VITALS: BP 106/70
--- NOTE | 2019-08-08 17:26 | NUR ---
Radial Drill Operator observed patient having a seizure lasting around 90 seconds long, patient was turned to side. Radial Drill Operator notified IVANIA Dennis and she observed patient while conventional underwriter called physician. Radial Drill Operator notified physician that patient has been refusing his oral keppra and conventional underwriter received new order to switch oral keppra to IV, starting now.
[2019-08-08] MEDS: levETIRAcetam 1,000 MG in IV DEXTROSE 5% 100ML 100 ML IV SCH (17:38)
[2019-08-08 19:00] VITALS: BP 94/59
[2019-08-08] MEDS: DOCUSATE SODIUM 100 MG CAPSULE. PO SCH (21:50)
--- NOTE | 2019-08-08 21:50 | NUR ---
During medication administration Pt hit his head with left hand multiple times. Pt calmed down after reassuring him the medication is to help him get better. Asked Pt if he was ok and if he was hurt. Pt denied Pain and no s/s of redness on side of left head. Pt took the medication in chocolate pudding.
[2019-08-08 23:00] VITALS: BP 105/76
[2019-08-09 03:00] VITALS: BP 104/74
[2019-08-09 07:00] VITALS: BP 90/58
[2019-08-09] MEDS: PANTOPRAZOLE 40 MG TABLET.DR. PO SCH (07:30)
[2019-08-09] MEDS: INSULIN LISPRO 300 UNITS/3 ML VIAL. SQ SCH ×4 (07:30→21:00)
[2019-08-09] MEDS: LUBIPROSTONE 24 MCG CAPSULE PO SCH ×2 (08:00→17:00)
[2019-08-09] MEDS: POLYETHYLENE GLYCOL 3350 17 GM PACKET. PO SCH (08:24)
[2019-08-09] MEDS: OXcarbazepine 300 MG TABLET PO SCH ×2 (08:28→21:00)
[2019-08-09] MEDS: ENOXAPARIN 40 MG/0.4 ML SYRINGE. SQ SCH (08:30)
[2019-08-09] MEDS: POTASSIUM CHLORIDE IV SCH (08:58)
[2019-08-09] MEDS: DEXTROSE IV SCH (08:58)
[2019-08-09] MEDS: NACL IV SCH (08:58)
[2019-08-09] MEDS: levETIRAcetam 1,000 MG in IV DEXTROSE 5% 100ML 100 ML IV SCH ×2 (09:00→21:01)
[2019-08-09 09:01] LABS: BASO # 0.1 x10^3/uL (0.0-0.2); BASO % 1 % (0-3); EOS # 0.1 x10^3/uL (0.0-0.7); EOS % 1 % (0-3); HEMATOCRIT 38.3 % (39.0-53.0); HEMOGLOBIN 13.4 g/dL (13.0-17.5); LYMPH # 1.6 x10^3/uL (1.0-4.8); LYMPH % 14 % (24-48); MEAN CORPUSCULAR HEMOGLOBIN 30 pg (25-35); MEAN CORPUSCULAR HGB CONC 35 g/dL (31-37); MEAN CORPUSCULAR VOLUME 87 fL (79-100); MONO # 1.1 x10^3/uL (0.0-1.1); MONO % 9 % (0-9); NEUT # 9.1 x10^3/uL (1.8-7.7); NEUT % 76 % (31-73); PLATELET COUNT 310 x10^3/uL (140-400); RED BLOOD COUNT 4.43 x10^6/uL (4.30-5.70); RED CELL DISTRIBUTION WIDTH 14.3 % (11.5-14.5); WHITE BLOOD COUNT 11.9 x10^3/uL (4.0-11.0)
[2019-08-09 09:18] LABS: ALBUMIN 2.7 g/dL (3.4-5.0); ALBUMIN/GLOBULIN RATIO 0.8 (1.0-1.7); CALCIUM 8.3 mg/dL (8.5-10.1); CREATININE 0.9 mg/dL (0.7-1.3); GFR 92.5; POTASSIUM 3.9 mmol/L (3.5-5.1); TOTAL BILIRUBIN 0.3 mg/dL (0.2-1.0)
[2019-08-09 10:59] VITALS: BP 100/58
--- NOTE | 2019-08-09 11:27 | PDOC ---
PROGRESS NOTES Chief Complaint Chief Complaint IMPRESSION ====== Gastroenteritis circumferential abnormal rectal wall thickening which could be distal colitis or rectal malignancy. 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 FEN - ADAT PPX - Lovenox FULL CODE Dispo - inpatient for likely bowel obstruction Continue constipation treatment long-term - refusing meds at times D/C HELD FOR LOW GRADE FEVER , STILL ON foft diet d5 03/07 NS WITH 20KCL/LITER 100CC /HR CONSIDER COLON IMAGING 08/05 POOR fluid intake po HARDLY ANY INTAKE PO X 24 HRS 08/06 CEA , repeat enema 08/07 req tap h20 enema until clear, STILL HAS STOOL AFTER ENEMA 08/08 Seizure yesterday, now on iv keppra EATING SOME finger food, needs to be fed by staff 30 MIN PT exam, chart review, > 50% of time spent with exam, chart review, pt care coordination History of Present Illness History of Present Illness Mr Pitt is a 43 yo M long-term SNF resident w/ PMHx Cerebral palsy, Severe mental retardation, Anemia, Esophagitis, Constipation, Generalized seizure disorder, 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 Foul-smelling emesis. CR 1.5 07/31: Afebrile, tachycardic overnight. Minimal stooling after enema yesterday, CR 1.0. KUB with improved small bowel less distended, apparently in same degree of fecal impaction. Asking for food today. Very large bowel movement. Accid entally dislodged his IV as well. Replaced Afebrile overnight. Tolerated advancing diet well. IV replaced. tries to spit his meds back to nursing. Of note has some behavioral issues. Staff not available to receive discharge today Plan: Advance diet. Cont bowel regimen One last IV keppra dose Vitals Vitals Vital Signs Date Time Temp Pulse Resp B/P (MAP) Pulse Ox O2 Delivery O2 Flow Rate FiO2 08/09/19 10:59 97.0 86 18 100/58 (72) 97 Room Air 97.0 Physical Exam General: Alert, Cooperative, No acute distress Heart: Regular rate, Normal S1, Normal S2, Other (tachy) Lungs: Clear, Other Abdomen: Normal bowel sounds, Soft, No tenderness, No masses Extremities: No clubbing, No cyanosis Skin: No rashes, No breakdown Labs LABS Laboratory Tests Test 08/08/19 11:48 08/08/19 16:45 08/08/19 20:21 08/09/19 07:43 Glucose (Fingerstick) 109 mg/dL (70-99) 131 mg/dL (70-99) 110 mg/dL (70-99) 112 mg/dL (70-99) Test 08/09/19 08:30 White Blood Count 11.9 x10^3/uL (4.0-11.0) Red Blood Count 4.43 x10^6/uL (4.30-5.70) Hemoglobin 13.4 g/dL (13.0-17.5) Hematocrit 38.3 % (39.0-53.0) Mean Corpuscular Volume 87 fL (79-100) Mean Corpuscular Hemoglobin 30 pg (25-35) Mean Corpuscular Hemoglobin Concent 35 g/dL (31-37) Red Cell Distribution Width 14.3 % (11.5-14.5) Platelet Count 310 x10^3/uL (140-400) Neutrophils (%) (Auto) 76 % (31-73) Lymphocytes (%) (Auto) 14 % (24-48) Monocytes (%) (Auto) 9 % (0-9) Eosinophils (%) (Auto) 1 % (0-3) Basophils (%) (Auto) 1 % (0-3) Neutrophils # (Auto) 9.1 x10^3/uL (1.8-7.7) Lymphocytes # (Auto) 1.6 x10^3/uL (1.0-4.8) Monocytes # (Auto) 1.1 x10^3/uL (0.0-1.1) Eosinophils # (Auto) 0.1 x10^3/uL (0.0-0.7) Basophils # (Auto) 0.1 x10^3/uL (0.0-0.2) Sodium Level 138 mmol/L (136-145) Potassium Level 3.9 mmol/L (3.5-5.1) Chloride Level 103 mmol/L (98-107) Carbon Dioxide Level 26 mmol/L (21-32) Anion Gap 9 (6-14) Blood Urea Nitrogen 5 mg/dL (8-26) Creatinine 0.9 mg/dL (0.7-1.3) Estimated GFR (Cockcroft-Gault) 92.5 BUN/Creatinine Ratio 6 (6-20) Glucose Level 119 mg/dL (70-99) Calcium Level 8.3 mg/dL (8.5-10.1) Total Bilirubin 0.3 mg/dL (0.2-1.0) Aspartate Amino Transf (AST/SGOT) 58 U/L (15-37) Alanine Aminotransferase (ALT/SGPT) 77 U/L (16-63) Alkaline Phosphatase 86 U/L (46-116) Total Protein 6.0 g/dL (6.4-8.2) Albumin 2.7 g/dL (3.4-5.0) Albumin/Globulin Ratio 0.8 (1.0-1.7) Assessment and Plan Assessmemt and Plan Problems Medical Problems: (1) Dehydration Status: Acute (2) Hypernatremia Status: Acute (3) Nausea and vomiting Status: Acute Multimedia Programmer observed patient having a seizure lasting around 90 seconds long, patient was turned to side. Multimedia Programmer notified IVANIA Dennis and she observed patient while narrative writer called physician. Multimedia Programmer notified physician that patient has been refusing his oral keppra and narrative writer received new order to switch oral keppra to IV, starting now. Comment Review of Relevant I have reviewed the following items sameer (where applicable) has been applied. Labs Laboratory Tests Test 08/07/19 11:29 08/07/19 16:40 08/07/19 20:56 08/08/19 07:29 Glucose (Fingerstick) 108 mg/dL (70-99) 101 mg/dL (70-99) 104 mg/dL (70-99) 100 mg/dL (70-99) Test 08/08/19 11:48 08/08/19 16:45 08/08/19 20:21 08/09/19 07:43 Glucose (Fingerstick) 109 mg/dL (70-99) 131 mg/dL (70-99) 110 mg/dL (70-99) 112 mg/dL (70-99) Test 08/09/19 08:30 White Blood Count 11.9 x10^3/uL (4.0-11.0) Red Blood Count 4.43 x10^6/uL (4.30-5.70) Hemoglobin 13.4 g/dL (13.0-17.5) Hematocrit 38.3 % (39.0-53.0) Mean Corpuscular Volume 87 fL (79-100) Mean Corpuscular Hemoglobin 30 pg (25-35) Mean Corpuscular Hemoglobin Concent 35 g/dL (31-37) Red Cell Distribution Width 14.3 % (11.5-14.5) Platelet Count 310 x10^3/uL (140-400) Neutrophils (%) (Auto) 76 % (31-73) Lymphocytes (%) (Auto) 14 % (24-48) Monocytes (%) (Auto) 9 % (0-9) Eosinophils (%) (Auto) 1 % (0-3) Basophils (%) (Auto) 1 % (0-3) Neutrophils # (Auto) 9.1 x10^3/uL (1.8-7.7) Lymphocytes # (Auto) 1.6 x10^3/uL (1.0-4.8) Monocytes # (Auto) 1.1 x10^3/uL (0.0-1.1) Eosinophils # (Auto) 0.1 x10^3/uL (0.0-0.7) Basophils # (Auto) 0.1 x10^3/uL (0.0-0.2) Sodium Level 138 mmol/L (136-145) Potassium Level 3.9 mmol/L (3.5-5.1) Chloride Level 103 mmol/L (98-107) Carbon Dioxide Level 26 mmol/L (21-32) Anion Gap 9 (6-14) Blood Urea Nitrogen 5 mg/dL (8-26) Creatinine 0.9 mg/dL (0.7-1.3) Estimated GFR (Cockcroft-Gault) 92.5 BUN/Creatinine Ratio 6 (6-20) Glucose Level 119 mg/dL (70-99) Calcium Level 8.3 mg/dL (8.5-10.1) Total Bilirubin 0.3 mg/dL (0.2-1.0) Aspartate Amino Transf (AST/SGOT) 58 U/L (15-37) Alanine Aminotransferase (ALT/SGPT) 77 U/L (16-63) Alkaline Phosphatase 86 U/L (46-116) Total Protein 6.0 g/dL (6.4-8.2) Albumin 2.7 g/dL (3.4-5.0) Albumin/Globulin Ratio 0.8 (1.0-1.7) Laboratory Tests Test 08/08/19 11:48 08/08/19 16:45 08/08/19 20:21 08/09/19 07:43 Glucose (Fingerstick) 109 mg/dL (70-99) 131 mg/dL (70-99) 110 mg/dL (70-99) 112 mg/dL (70-99) Test 08/09/19 08:30 White Blood Count 11.9 x10^3/uL (4.0-11.0) Red Blood Count 4.43 x10^6/uL (4.30-5.70) Hemoglobin 13.4 g/dL (13.0-17.5) Hematocrit 38.3 % (39.0-53.0) Mean Corpuscular Volume 87 fL (79-100) Mean Corpuscular Hemoglobin 30 pg (25-35) Mean Corpuscular Hemoglobin Concent 35 g/dL (31-37) Red Cell Distribution Width 14.3 % (11.5-14.5) Platelet Count 310 x10^3/uL (140-400) Neutrophils (%) (Auto) 76 % (31-73) Lymphocytes (%) (Auto) 14 % (24-48) Monocytes (%) (Auto) 9 % (0-9) Eosinophils (%) (Auto) 1 % (0-3) Basophils (%) (Auto) 1 % (0-3) Neutrophils # (Auto) 9.1 x10^3/uL (1.8-7.7) Lymphocytes # (Auto) 1.6 x10^3/uL (1.0-4.8) Monocytes # (Auto) 1.1 x10^3/uL (0.0-1.1) Eosinophils # (Auto) 0.1 x10^3/uL (0.0-0.7) Basophils # (Auto) 0.1 x10^3/uL (0.0-0.2) Sodium Level 138 mmol/L (136-145) Potassium Level 3.9 mmol/L (3.5-5.1) Chloride Level 103 mmol/L (98-107) Carbon Dioxide Level 26 mmol/L (21-32) Anion Gap 9 (6-14) Blood Urea Nitrogen 5 mg/dL (8-26) Creatinine 0.9 mg/dL (0.7-1.3) Estimated GFR (Cockcroft-Gault) 92.5 BUN/Creatinine Ratio 6 (6-20) Glucose Level 119 mg/dL (70-99) Calcium Level 8.3 mg/dL (8.5-10.1) Total Bilirubin 0.3 mg/dL (0.2-1.0) Aspartate Amino Transf (AST/SGOT) 58 U/L (15-37) Alanine Aminotransferase (ALT/SGPT) 77 U/L (16-63) Alkaline Phosphatase 86 U/L (46-116) Total Protein 6.0 g/dL (6.4-8.2) Albumin 2.7 g/dL (3.4-5.0) Albumin/Globulin Ratio 0.8 (1.0-1.7) Microbiology 07/30/19 Urine Culture - Final, Complete Medications Current Medications Sodium Chloride 1,000 ml @ 1,000 mls/hr 1X ONCE IV Last administered on 07/30/19at 20:15; Start 07/30/19 at 20:15; Stop 07/30/19 at 21:14; Status DC Ondansetron HCl (Zofran) 4 mg 1X ONCE IV Last administered on 07/30/19at 20:21; Start 07/30/19 at 20:15; Stop 07/30/19 at 20:24; Status DC Famotidine (Pepcid Vial) 20 mg 1X ONCE IVP Last administered on 07/30/19at 20:21; Start 07/30/19 at 20:15; Stop 07/30/19 at 20:24; Status DC Ondansetron HCl (Zofran) 4 mg PRN Q8HRS PRN IV NAUSEA/VOMITING; Start 07/30/19 at 21:45; Stop 07/31/19 at 08:28; Status DC Sodium Chloride 1,000 ml @ 150 mls/hr Q6H40M IV Last administered on 07/31/19at 18:15; Start 07/30/19 at 21:45; Stop 07/31/19 at 21:44; Status DC Pantoprazole Sodium (PROTONIX VIAL for IV PUSH) 40 mg DAILYAC IVP Last administered on 08/03/19at 09:57; Start 07/31/19 at 07:30; Stop 08/03/19 at 10:08; Status DC Ondansetron HCl (Zofran) 4 mg PRN Q4HRS PRN IV NAUSEA/VOMITING; Start 07/31/19 at 08:30 Insulin Human Lispro (HumaLOG) 0-9 UNITS TIDACHC SQ ; Start 07/31/19 at 11:30 Dextrose (Dextrose 50%-Water Syringe) 12.5 gm PRN Q15MIN PRN IV SEE COMMENTS; Start 07/31/19 at 08:30 Levetiracetam 1000 mg/Dextrose 110 ml @ 440 mls/hr Q12HR IV Last administered on 08/01/19at 09:45; Start 07/31/19 at 09:00; Stop 08/02/19 at 08:26; Status DC Enoxaparin Sodium (Lovenox 40mg Syringe) 40 mg Q24H SQ Last administered on 08/09/19at 08:30; Start 07/31/19 at 09:00 Magnesium Sulfate/ Dextrose 100 ml @ 100 mls/hr 1X ONCE IV Last administered on 07/31/19at 09:01; Start 07/31/19 at 09:00; Stop 07/31/19 at 09:59; Status DC Lorazepam (Ativan) 1 mg PRN TID PRN PO AGITATION Last administered on 08/01/19at 21:26; Start 07/31/19 at 08:45 Oxcarbazepine (Trileptal) 600 mg BID PO Last administered on 08/08/19at 21:50; Start 07/31/19 at 09:00 Polyethylene Glycol (miraLAX PACKET) 17 gm DAILY PO ; Start 07/31/19 at 09:00; Stop 08/04/19 at 11:00; Status DC Docusate Sodium (Colace) 100 mg QHS PO Last administered on 08/08/19at 21:50; Start 07/31/19 at 21:00 Bisacodyl (Dulcolax Supp) 10 mg PRN DAILY PRN SC CONSTIPATION; Start 07/31/19 at 14:15; Stop 08/01/19 at 15:56; Status DC Bisacodyl (Dulcolax Supp) 10 mg 1X ONCE SC Last administered on 08/01/19at 11:20; Start 08/01/19 at 08:15; Stop 08/01/19 at 08:16; Status DC Bisacodyl (Dulcolax Supp) 10 mg PRN DAILY PRN SC CONSTIPATION; Start 08/01/19 at 08:15; Stop 08/06/19 at 18:54; Status DC Levetiracetam (Keppra) 1,000 mg BID PO Last administered on 08/07/19at 21:09; Start 08/02/19 at 09:00; Stop 08/08/19 at 17:23; Status DC Levetiracetam 1000 mg/Dextrose 110 ml @ 440 mls/hr 1X ONCE IV Last administered on 08/02/19at 09:59; Start 08/02/19 at 10:00; Stop 08/02/19 at 10:14; Status DC Lorazepam (Ativan Inj) 0.5 mg TID PRN PRN IVP ANXIETY / AGITATION Last administered on 08/02/19at 15:56; Start 08/02/19 at 13:45 Lorazepam (Ativan Inj) 0.5 mg PRN TID PRN IVP ANXIETY / AGITATION; Start 08/02/19 at 14:00; Status UNV Pantoprazole Sodium (Protonix) 40 mg DAILYAC PO Last administered on 08/06/19at 05:49; Start 08/04/19 at 07:30 Polyethylene Glycol (miraLAX PACKET) 17 gm PRN DAILY PRN PO CONSTIPATION - 1st PO CHOICE; Start 08/04/19 at 11:00 Lubiprostone (Amitiza) 24 mcg BIDWMEALS PO Last administered on 08/05/19at 10:05; Start 08/04/19 at 17:00 Acetaminophen (Tylenol) 650 mg PRN Q6HRS PRN PO FEVER > 100.3'F; Start 08/04/19 at 20:45 Sodium Chloride 1,000 ml @ 100 mls/hr Q10H IV ; Start 08/05/19 at 12:30; Stop 08/05/19 at 12:25; Status DC Potassium Chloride 30 meq/ Dextrose/Sodium Chloride 1,015 ml @ 80 mls/hr [id number] IV Last administered on 08/09/19at 08:58; Start 08/05/19 at 13:00 Polyethylene Glycol (miraLAX PACKET) 17 gm DAILY PO ; Start 08/07/19 at 09:00 Bisacodyl (Dulcolax Tab) 5 mg PRN DAILY PRN PO CONSTIPATION- 2ND PO CHOICE; Start 08/06/19 at 10:15 Sodium Chloride 1,000 ml @ 500 mls/hr 1X ONCE IV Last administered on 08/06/19at 10:51; Start 08/06/19 at 10:30; Stop 08/06/19 at 12:29; Status DC Potassium Chloride/Water 100 ml @ 100 mls/hr Q1H IV Last administered on 08/06/19at 14:45; Start 08/06/19 at 11:00; Stop 08/06/19 at 14:59; Status DC Mineral Oil (Fleet Mineral Oil) 133 ml 1X ONCE SC Last administered on 08/06/19at 22:39; Start 08/06/19 at 19:00; Stop 08/06/19 at 19:01; Status DC Bisacodyl (Dulcolax Supp) 10 mg 1X ONCE SC Last administered on 08/06/19at 20:21; Start 08/06/19 at 19:00; Stop 08/06/19 at 19:01; Status DC Bisacodyl (Dulcolax Supp) 10 mg PRN DAILY PRN SC CONSTIPATION; Start 08/06/19 at 19:00 Levetiracetam 1000 mg/Dextrose 110 ml @ 440 mls/hr Q12HR IV Last administered on 08/09/19at 09:00; Start 08/08/19 at 17:00 Active Scripts Active Ativan (Lorazepam) 1 Mg Tablet 1 Mg PO TID PRN [place] 5-325 Tablet (Acetaminophen/Hydrocodone Bitart) 1 Each Tablet 1 Tab PO Q6HRS PRN Reported Levetiracetam 1,000 Mg Tablet 1,000 Mg PO BID Iron (Ferrous Sulfate) 325 Mg Tablet 325 Mg PO WEEKLY Docusate Sodium 100 Mg Tablet 100 Mg PO HS Tranxene T-Tab (Clorazepate Dipotassium) 3.75 Mg Tablet 3.75 Mg PO HS Senna (Sennosides) 8.6 Mg Tablet 8.6 Mg PO BID Ranitidine Hcl 150 Mg Tablet 150 Mg PO DAILY Trileptal (Oxcarbazepine) 300 Mg Tablet 600 Mg PO BID Polyethylene Glycol 3350 255 Gm Powder 17 Gm PO DAILY Vitals/I & O Vital Sign - Last 24 Hours 08/08/19 08/08/19 08/08/19 08/08/19 15:00 19:00 20:00 23:00 Temp 97.6 97.8 99.8 97.6 97.8 99.8 Pulse 105 127 113 Resp 16 16 16 B/P (MAP) 106/70 (82) 94/59 (71) 105/76 (86) Pulse Ox 92 90 91 O2 Delivery Room Air Room Air Room Air 08/09/19 08/09/19 08/09/19 08/09/19 03:00 07:00 07:25 10:59 Temp 99.2 96.8 97.0 99.2 96.8 97.0 Pulse 110 74 86 Resp 16 16 18 B/P (MAP) 104/74 (84) 90/58 (69) 100/58 (72) Pulse Ox 92 93 97 O2 Delivery Room Air Room Air Room Air Room Air Intake and Output 08/08/19 08/08/19 08/09/19 15:00 23:00 07:00 Intake Total 0 ml 0 ml 0 ml Output Total 1 ml Balance 0 ml -1 ml 0 ml Hemodynamically unstable?: No Is patient in severe pain?: No Is NPO status required?: No ARIES QUINONES MD Aug 09, 2019 11:27
[2019-08-09 15:00] VITALS: BP 104/66
[2019-08-09 19:00] VITALS: BP 100/66
[2019-08-09] MEDS: DOCUSATE SODIUM 100 MG CAPSULE. PO SCH (21:00)
[2019-08-09 23:00] VITALS: BP 97/67
[2019-08-10 03:00] VITALS: BP 97/67
[2019-08-10] MEDS: NACL IV SCH (03:33)
[2019-08-10] MEDS: DEXTROSE IV SCH (03:33)
[2019-08-10] MEDS: POTASSIUM CHLORIDE IV SCH (03:33)
[2019-08-10 07:20] VITALS: BP 104/62
[2019-08-10] MEDS: PANTOPRAZOLE 40 MG TABLET.DR. PO SCH (07:30)
[2019-08-10] MEDS: INSULIN LISPRO 300 UNITS/3 ML VIAL. SQ SCH (07:30)
[2019-08-10] MEDS: LUBIPROSTONE 24 MCG CAPSULE PO SCH (08:00)
[2019-08-10] MEDS: OXcarbazepine 300 MG TABLET PO SCH (09:00)
[2019-08-10] MEDS: POLYETHYLENE GLYCOL 3350 17 GM PACKET. PO SCH (09:00)
[2019-08-10] MEDS ORDERED: levETIRAcetam 500 MG TABLET PO SCH (09:30)
--- NOTE | 2019-08-10 09:49 | SNU/HH DC ---
DISCHARGE WITH HOME HEALTH DISCHARGE INFORMATION: Discharge Date: Aug 10, 2019 Final Diagnosis: Problems Medical Problems: (1) Dehydration Status: Acute (2) Hypernatremia Status: Acute (3) Nausea and vomiting Status: Acute Condition on Discharge: Stable CODE STATUS: Code Status: Full HOME HEALTH: Face to Face: I certify this patient is under my care and that I, or a nurse practitioner or physician's social media assistant working with me, had a face to face encounter that meets the physician face to face encounter requirements with this patient on 08/09 Medical Complications: Dementia, Other Correction For: Other: (med management, ) RN For Eval/Treatment: Yes Pt Meets Homebound Status: Poor cognition, Psychological condition, Other: (severe cerebral palsy) POST DISCHARGE ORDERS: Activity Instructions for Disc: Resume previous activity, Activity as tolerated Weight Bearing Status after Di: As tolerated DIET AFTER DISCHARGE: Regular FOLLOW-UP: Follow up with: consider palliative if meds refused and no PO intake, TREATMENT/EQUIPMENT ORDERS: Adaptive Equipment Issued: None CERTIFICATION STATEMENT: Certification Statement: Certification Statement: Based on the above finding, I certify that this patient is confined to the home and needs intermittent alf care, physical therapy and/or speech therapy, or continues to need occupational therapy.~ This patient is under my care, and I have initiated the establishment of the plan of care.~ This patient will be followed by myself or a community physician who will periodically review the plan of care. Home Meds Active Scripts Lorazepam (ATIVAN) 1 Mg Tablet, 1 MG PO TID PRN for AGITATION, #6 TAB Prov:ALINA GUTIÉRREZ MD 04/07/19 Hydrocodone/Apap 5-325 (NORCO 5-325 TABLET) 1 Each Tablet, 1 TAB PO Q6HRS PRN for PAIN, #20 TAB Prov:YVETTE WYNN APRN 11/25/16 Reported Medications Levetiracetam (LEVETIRACETAM) 1,000 Mg Tablet, 1000 MG PO BID, TAB 01/10/14 Ferrous Sulfate (IRON) 325 Mg Tablet, 325 MG PO WEEKLY 01/10/14 Docusate Sodium (DOCUSATE SODIUM) 100 Mg Tablet, 100 MG PO HS 01/10/14 Clorazepate Dipotassium (TRANXENE T-TAB) 3.75 Mg Tablet, 3.75 MG PO HS 01/10/14 Sennosides (SENNA) 8.6 Mg Tablet, 8.6 MG PO BID 01/10/14 Ranitidine Hcl (RANITIDINE HCL) 150 Mg Tablet, 150 MG PO DAILY, TAB 01/10/14 Oxcarbazepine (TRILEPTAL) 300 Mg Tablet, 600 MG PO BID, #60 TAB 1 Refill 01/10/14 Polyethylene Glycol 3350 (POLYETHYLENE GLYCOL 3350) 255 Gm Powder, 17 GM PO DAILY, #527 GM 01/10/14 DI BRAUN MD Aug 10, 2019 09:49
--- NOTE | 2019-08-10 09:52 | PDOC3 ---
Discharge Summary Visit Information Date of Admission: July 30, 2019 Date of Discharge: Aug 10, 2019 Final Diagnosis Gastroenteritis circumferential abnormal rectal wall thickening which could be distal colitis or rectal malignancy. 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 Problems Medical Problems: (1) Dehydration Status: Acute (2) Hypernatremia Status: Acute (3) Nausea and vomiting Status: Acute Brief Hospital Course Allergies Allergies Coded Allergies Type Severity Reaction Last Updated Verified No Known Drug Allergies 01/10/14 No Vital Signs Vital Signs Date Time Temp Pulse Resp B/P (MAP) Pulse Ox O2 Delivery O2 Flow Rate FiO2 08/10/19 07:20 98.6 107 17 104/62 (76) 95 Room Air 98.6 Lab Results Laboratory Tests Test 08/08/19 11:48 08/08/19 16:45 08/08/19 20:21 08/09/19 07:43 Glucose (Fingerstick) 109 mg/dL (70-99) 131 mg/dL (70-99) 110 mg/dL (70-99) 112 mg/dL (70-99) Test 08/09/19 08:30 08/09/19 11:35 08/09/19 16:49 08/09/19 20:22 White Blood Count 11.9 x10^3/uL (4.0-11.0) Red Blood Count 4.43 x10^6/uL (4.30-5.70) Hemoglobin 13.4 g/dL (13.0-17.5) Hematocrit 38.3 % (39.0-53.0) Mean Corpuscular Volume 87 fL (79-100) Mean Corpuscular Hemoglobin 30 pg (25-35) Mean Corpuscular Hemoglobin Concent 35 g/dL (31-37) Red Cell Distribution Width 14.3 % (11.5-14.5) Platelet Count 310 x10^3/uL (140-400) Neutrophils (%) (Auto) 76 % (31-73) Lymphocytes (%) (Auto) 14 % (24-48) Monocytes (%) (Auto) 9 % (0-9) Eosinophils (%) (Auto) 1 % (0-3) Basophils (%) (Auto) 1 % (0-3) Neutrophils # (Auto) 9.1 x10^3/uL (1.8-7.7) Lymphocytes # (Auto) 1.6 x10^3/uL (1.0-4.8) Monocytes # (Auto) 1.1 x10^3/uL (0.0-1.1) Eosinophils # (Auto) 0.1 x10^3/uL (0.0-0.7) Basophils # (Auto) 0.1 x10^3/uL (0.0-0.2) Sodium Level 138 mmol/L (136-145) Potassium Level 3.9 mmol/L (3.5-5.1) Chloride Level 103 mmol/L (98-107) Carbon Dioxide Level 26 mmol/L (21-32) Anion Gap 9 (6-14) Blood Urea Nitrogen 5 mg/dL (8-26) Creatinine 0.9 mg/dL (0.7-1.3) Estimated GFR (Cockcroft-Gault) 92.5 BUN/Creatinine Ratio 6 (-) Glucose Level 119 mg/dL (70-99) Calcium Level 8.3 mg/dL (8.5-10.1) Total Bilirubin 0.3 mg/dL (0.2-1.0) Aspartate Amino Transf (AST/SGOT) 58 U/L (15-37) Alanine Aminotransferase (ALT/SGPT) 77 U/L (16-63) Alkaline Phosphatase 86 U/L (46-116) Total Protein 6.0 g/dL (6.4-8.2) Albumin 2.7 g/dL (3.4-5.0) Albumin/Globulin Ratio 0.8 (1.0-1.7) Glucose (Fingerstick) 113 mg/dL (70-99) 106 mg/dL (70-99) 109 mg/dL (70-99) Test 08/10/19 07:19 Glucose (Fingerstick) 108 mg/dL (70-99) Laboratory Tests Test 08/09/19 11:35 08/09/19 16:49 08/09/19 20:22 08/10/19 07:19 Glucose (Fingerstick) 113 mg/dL (70-99) 106 mg/dL (70-99) 109 mg/dL (70-99) 108 mg/dL (70-99) Brief Hospital Course Mr. Pitt is a 44 old male who has severe cerebral palsy. [facility] lives at a [facility]. They have noticed that he has been weak and not talking much, not acting himself. He is quite pale. He has been having some nausea and vomiting, projectile coffee-ground emesis, started PPI and antiemtics, some better, still poor PO intake, refused IV, and refused meds, DC home, he may return more to normal in his own setting, if not improved, palliative could be considered Discharge Information Condition at Discharge: Improved Follow Up: Weeks Disposition/Orders: D/C to Home w/ HH Scheduled Clorazepate Dipotassium (Tranxene T-Tab) 3.75 Mg Tablet, 3.75 MG PO HS, (Reported) Entered as Reported by: AMALIA ESTEVES on 01/10/141956 Docusate Sodium (Docusate Sodium) 100 Mg Tablet, 100 MG PO HS, (Reported) Entered as Reported by: AMALIA SETEVES on 01/10/141956 Last Action: Converted on 07/31/19833 by SHAQUILLE GUILLORY MD Ferrous Sulfate (Iron) 325 Mg Tablet, 325 MG PO WEEKLY, (Reported) Entered as Reported by: AMALIA ESTEVES on 01/10/141956 Levetiracetam (Levetiracetam) 1,000 Mg Tablet, 1,000 MG PO BID, (Reported) Entered as Reported by: AMALIA ESTEVES on 01/10/141956 Last Action: Converted on 08/02/19825 by SHAQUILLE GUILLORY MD Oxcarbazepine (Trileptal) 300 Mg Tablet, 600 MG PO BID, #60 Ref 1 (Reported) Entered as Reported by: AMALIA ESTEVES on 01/10/141956 Last Action: Continued on 07/31/19832 by SHAQUILLE GUILLORY MD Polyethylene Glycol 3350 (Polyethylene Glycol 3350) 255 Gm Powder, 17 GM PO DAILY, #527 (Reported) Entered as Reported by: AMALIA ESTEVES on 01/10/141956 Last Action: Continued on 07/31/19832 by SHAQUILLE GUILLORY MD Ranitidine Hcl (Ranitidine Hcl) 150 Mg Tablet, 150 MG PO DAILY, (Reported) Entered as Reported by: AMALIA ESTEVES on 01/10/141956 Sennosides (Senna) 8.6 Mg Tablet, 8.6 MG PO BID, (Reported) Entered as Reported by: AMALIA ESTEVES on 01/10/141956 Scheduled PRN Hydrocodone/Apap 5-325 ([place] 5-325 Tablet) 1 Each Tablet, 1 TAB PO Q6HRS PRN for PAIN, #20 Prescribed by: Holley Bhatti APRN on 11/25/16 1518 Lorazepam (Ativan) 1 Mg Tablet, 1 MG PO TID PRN for AGITATION, #6 Prescribed by: ALINA GUTIÉRREZ MD on 04/07/19 1417 Last Action: Continued on 07/31/19 0833 by SHAQUILLE GUILLORY MD Patient Instructions Patient Instructions > 30 min seen in person, he was unable to discuss consider palliative care, Justicifation of Admission Dx: Justifications for Admission: Justification of Admission Dx: Yes DI BRAUN MD Aug 10, 2019 09:52
--- NOTE | 2019-08-10 10:15 | PDOC ---
Objective: Objective: D/w nurse - stooling, sleeping, not making effort to eat. Since I have seen - has DC orders. Still refusing meds. Reviewed chart - got a couple more enemas since I last saw on Sat. Also some mention of "possible colonoscopy" per Dr. Charles/social work - I discussed this with nurse on Saturday - not a good colonoscopy candidate if refusing food and meds, also refusing to wake up - would not be able to adequately prep. Vital Signs: Vital Signs Date Time Temp Pulse Resp B/P (MAP) Pulse Ox O2 Delivery O2 Flow Rate FiO2 08/10/19 08:00 Room Air 08/10/19 07:20 98.6 107 17 104/62 (76) 95 98.6 Labs: Laboratory Tests Test 08/09/19 11:35 08/09/19 16:49 08/09/19 20:22 08/10/19 07:19 Glucose (Fingerstick) 113 mg/dL 106 mg/dL 109 mg/dL 108 mg/dL PE: GEN: NAD, sleeping LUNGS: clear anteriorly - exam difficult/pt not cooperative HEART: mildly tachycardic ABD: soft, non-tender, non-distended NEURO/PSYCH: eyes remain closed - says "hi" and tells me "no" when I asked if he could wake up or sit up A/P: Constipation/fecal impaction - is stooling Seizure -- Dc per primary, would continue constipation treatment long-term if he'll cooperate. Justicifation of Admission Dx: Justifications for Admission: Justification of Admission Dx: Yes MARTA CHAND Aug 10, 2019 10:15
[2019-08-10 10:30] VITALS: BP 102/74
--- NOTE | 2019-08-10 11:30 | NUR ---
RAZIA following. Discussed with RN and Dr. Mcneil - pt discharging back to skilled nursing without palliative care to determine if being in his own setting and with familiar people will help pt get back on a medication routine. RAZIA discussed with Malka ([phone]) at [facility], she is agreeable, know she can get orders from his PCP if he does not improve. Malka declined home health as she is an RN and will be checking on pt quite often when he returns. Malka requested med orders be faxed to [facility] (fax: [phone]). Malka will collect pt at 1300 today. RN notified.
== END 2019-08-10 13:15 | disposition home health service (06) | DRG 388 ==
LOC: ER 18:47 → 4 NORTH 21:43
PROVIDERS: ADMIT Internal Medicine; ATTEND Internal Medicine
DX: K56.41 Fecal impaction (principal); N17.0 Acute kidney failure with tubular necrosis; E87.0 Hyperosmolality and hypernatremia; F72 Severe intellectual disabilities; J90 Pleural effusion, not elsewhere classified; J98.11 Atelectasis; K52.9 Noninfective gastroenteritis and colitis, unspecified; D64.9 Anemia, unspecified; E86.0 Dehydration; G40.409 Other generalized epilepsy and epileptic syndromes, not intractable, without status epilepticus; G80.9 Cerebral palsy, unspecified; Z53.20 Procedure and treatment not carried out because of patient's decision for unspecified reasons; K20.9 Esophagitis, unspecified; K80.20 Calculus of gallbladder without cholecystitis without obstruction; M41.9 Scoliosis, unspecified; Q65.89 Other specified congenital deformities of hip; Z83.3 Family history of diabetes mellitus; Z87.891 Personal history of nicotine dependence; Z91.19 Patient's noncompliance with other medical treatment and regimen; Z98.2 Presence of cerebrospinal fluid drainage device; Z20.828 Contact with and (suspected) exposure to other viral communicable diseases
CPT/HCPCS: 36415; 36600; 74018; 74176; 80048; 80053; 80177; 81001; 82274; 82378; 82550; 82805; 82962; 83690; 83735; 83930; 84484; 85007; 85014; 85018; 85025; 87086; 93005; 96361; 96374; 96375; 99285; C9113; J1650; J1815; J1953; J2060; J2405; J3475; J3480; J3490; J7030; J7042; J7060; G0378; U0003-CS

== ENCOUNTER 2019-08-21 17:31 | Inpatient (IN) | payer MEDICAID ==
[~2019-08-21] VITALS: Ht 175.3 cm; Wt 75.0 kg
[2019-08-21] MEDS ORDERED: IV NORMAL SALINE 1000ML BAG 1,000 ML IV ONE (18:30)
--- NOTE | 2019-08-21 19:18 | PHYS DOC ---
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 Caregivers concerned that patient has not had a bowel movement in the last 10 days. Reports he has also had decreased appetite. Patient was recently admitted to [facility] and discharged on 08/10/19. Caregiver reports giving 6 doses of lactulose over the last 3 days without results. History of present illness limited due to patient's baseline mentation/ cerebral palsy Review of Systems: Review of Systems: Constitutional: Denies fever or chills GI: Reports constipation; denies vomiting Review of systems limited secondary to patient's baseline mentation/ cerebral palsy Current Medications: Current Medications Medications (Trade) Dose Ordered Sig/Mynor Start Time Stop Time Status Last Admin Dose Admin Sodium Chloride 1,000 ml @ 1,000 mls/hr 1X ONCE 08/21/19 18:30 08/21/19 19:29 Allergies: Allergies: Allergies Coded Allergies Type Severity Reaction Last Updated Verified No Known Drug Allergies 01/10/14 No Physical Exam: PE: Constitutional: Nonverbal, patient with cerebral palsy HENT: Normocephalic, atraumatic Eyes: Conjunctiva normal, no discharge Neck: Normal range of motion, supple Lungs & Thorax: No respiratory distress, equal chest rise and fall Abdomen: Soft, mild diffuse tenderness, no distention appreciated Skin: Warm, dry, no erythema, no rash Extremities: Contracted extremities with poor muscle tone Neurologic: Alert, GCS 11 (eye 4, verbal 2, motor 5) Psychologic: Judgment abnormal, unable to full assess Current Patient Data: Vital Signs: Vital Signs Date Time Temp Pulse Resp B/P (MAP) Pulse Ox O2 Delivery O2 Flow Rate FiO2 08/21/19 18:18 96.6 100 18 122/83 (96) 97 Room Air 96.6 EKG: EKG: [] Radiology/Procedures: Radiology/Procedures: PROCEDURE: CT ABD PELV W/ IV CONTRST ONLY CT ABD PELV W/ IV CONTRST ONLY History: Reason: abdominal pain, hx of constipation, eval for obstruction Technique: After the administration of intravenous contrast, CT imaging was performed of the abdomen and pelvis. Multiplanar images are reviewed. Exposure: One or more of the following individualized dose reduction techniques were utilized for this examination: 1. Automated exposure control 2. Adjustment of the mA and/or kV according to patient size 3. Use of iterative reconstruction technique. Comparison: August 07, 2019 Findings: Lower chest: Decreased left lower lobe opacity. Resolved left pleural effusion. Small hiatal hernia. Abdomen and pelvis: Shunt catheter tubing noted, unchanged. The liver, spleen, adrenal glands, and pancreas are unremarkable. Cholelithiasis. Patent portal veins. Normal appearance the kidneys. No hydronephrosis. Rectal wall thickening, decreased compared to prior. Distended stool-filled colon. Normal appendix. No evidence of small bowel obstruction. No pathologic lymphadenopathy. No ascites. Small periumbilical fat-containing hernia. Bones: Dysplastic appearance of the right hip. Severe leftward curvature of the thoracolumbar spine. Impression: 1. Increased colonic distention and stool. 2. Decreased rectal wall thickening and adjacent inflammatory changes. 3. Cholelithiasis. 4. Small hiatal hernia. Electronically signed by: Juan Yanes DO (08/21/2019 9:04 PM) [facility] Course & Med Decision Making: Course & Med Decision Making Pertinent Labs and Imaging studies reviewed. (See chart for details) Patient with baseline decreased mentation secondary to cerebral palsy presents from longterm with concern for possible constipation x10 days. Abdomen non- peritoneal. Labs obtained and posted to chart. IV fluid hydration provided. CT abdomen/pelvis with significant amount of colonic stool concerning for obstipation. Patient also noted to have increased Creatinine in comparison to prior. IVF hydration given. Patient requiring admission for further evaluation and treatment. Discussed with Dr. Avila (hospitalist) who is in agreement with admit. Discussed findings and plan with caregiver, who acknowledges understanding and agreement. López Disclaimer: López Disclaimer: This electronic medical record was generated, in whole or in part, using a voice recognition dictation system. Departure Departure Impression: Primary Impression: Obstipation Additional Impression: Acute renal insufficiency Disposition: ADMITTED INPATIENT Admitting Physician: MARE Resendiz) Condition: STABLE Referrals: ROBERTH HOYT MD (PCP) Justicifation of Admission Dx: Justifications for Admission: Justification of Admission Dx: Yes Comments: Obstipation, acute renal insufficiency ANGELA NULL DO Aug 21, 2019 19:18
[2019-08-21 20:23] LABS: BILIRUBIN,URINE NEGATIVE (NEG); CLARITY,URINE CLEAR; COLOR,URINE YELLOW; NITRITE,URINE NEGATIVE (NEG); PROTEIN,URINE NEGATIVE (NEG-TRACE); UROBILINOGEN,URINE 0.2 mg/dL (0.2 mg/dL)
[2019-08-21 20:24] LABS: BASO # 0.1 x10^3/uL (0.0-0.2); BASO % 1 % (0-3); EOS # 0.2 x10^3/uL (0.0-0.7); EOS % 2 % (0-3); HEMATOCRIT 39.1 % (39.0-53.0); HEMOGLOBIN 13.1 g/dL (13.0-17.5); LYMPH # 1.9 x10^3/uL (1.0-4.8); LYMPH % 24 % (24-48); MEAN CORPUSCULAR HEMOGLOBIN 29 pg (25-35); MEAN CORPUSCULAR HGB CONC 33 g/dL (31-37); MEAN CORPUSCULAR VOLUME 87 fL (79-100); MONO # 0.8 x10^3/uL (0.0-1.1); MONO % 11 % (0-9); NEUT # 4.9 x10^3/uL (1.8-7.7); NEUT % 63 % (31-73); PLATELET COUNT 333 x10^3/uL (140-400); RED CELL DISTRIBUTION WIDTH 13.5 % (11.5-14.5); WHITE BLOOD COUNT 7.9 x10^3/uL (4.0-11.0)
[2019-08-21 20:28] LABS: BACTERIA,URINE 0 /HPF (0-FEW); RBC,URINE 0 /HPF (0-2); WBC,URINE 0 /HPF (0-4)
[2019-08-21 20:31] LABS: CALCIUM 8.4 mg/dL (8.5-10.1); CREATININE 1.4 mg/dL (0.7-1.3); GFR 55.6; POTASSIUM 3.5 mmol/L (3.5-5.1)
[2019-08-21 20:36] LABS: ALBUMIN 2.9 g/dL (3.4-5.0); MAGNESIUM 2.1 mg/dL (1.8-2.4); TOTAL BILIRUBIN 0.2 mg/dL (0.2-1.0); TOTAL PROTEIN 5.9 g/dL (6.4-8.2)
[2019-08-21] MEDS ORDERED: CONTRAST GIVEN. MC PRN (20:45)
[2019-08-21] MEDS ORDERED: IOHEXOL 300 MG/ML 100ML VIAL. IV ONE (20:45)
--- NOTE | 2019-08-21 21:07 | RAD ---
CT ABD PELV W/ IV CONTRST ONLY History: Reason: abdominal pain, hx of constipation, eval for obstruction Technique: After the administration of intravenous contrast, CT imaging was performed of the abdomen and pelvis. Multiplanar images are reviewed. Exposure: One or more of the following individualized dose reduction techniques were utilized for this examination: 1. Automated exposure control 2. Adjustment of the mA and/or kV according to patient size 3. Use of iterative reconstruction technique. Comparison: August 07, 2019 Findings: Lower chest: Decreased left lower lobe opacity. Resolved left pleural effusion. Small hiatal hernia. Abdomen and pelvis: Shunt catheter tubing noted, unchanged. The liver, spleen, adrenal glands, and pancreas are unremarkable. Cholelithiasis. Patent portal veins. Normal appearance the kidneys. No hydronephrosis. Rectal wall thickening, decreased compared to prior. Distended stool-filled colon. Normal appendix. No evidence of small bowel obstruction. No pathologic lymphadenopathy. No ascites. Small periumbilical fat-containing hernia. Bones: Dysplastic appearance of the right hip. Severe leftward curvature of the thoracolumbar spine. Impression: 1. Increased colonic distention and stool. 2. Decreased rectal wall thickening and adjacent inflammatory changes. 3. Cholelithiasis. 4. Small hiatal hernia. Electronically signed by: Juan Yanes DO (08/21/2019 9:04 PM) [facility]
[2019-08-22] VITALS (7 sets, daily range): BP systolic 94–125; BP diastolic 50–87
--- NOTE | 2019-08-22 00:25 | NUR ---
Pt. arrived on unit at 0025 by bed from ER. Pt. [facility]. Pt. is unable to be oriented due to a history of cerebral palsy but is able to verbalize what he wants for breakfast. Pt. does not seem to be in any pain. Vitals WNL. Call light within reach with bed in lowest position and rails padded. Will continue to monitor.
[2019-08-22] MEDS ORDERED: MELA5TAB20 PO (05:23)
[2019-08-22] MEDS ORDERED: CLOB10TA3 PO (05:23)
[2019-08-22] MEDS ORDERED: FAMO20TA5 PO (05:23)
--- NOTE | 2019-08-22 07:46 | NUR ---
Contact information for pt. from [facility] Malka (M[place] RN) [phone] Demar (outpatient program coordinator) [phone]
[2019-08-22] MEDS: IV NORMAL SALINE 1000ML BAG 1,000 ML IV SCH ×2 (09:54→22:20)
--- NOTE | 2019-08-22 12:25 | PDOC ---
G I PROGRESS NOTE Reason for Follow-up Constipation/han-plegia Subjective cooperative today Physical Exam Lungs clear CV S1 S2 ASBD +BS, soft, distended Review of Relevant I have reviewed the following items sameer (where applicable) has been applied. Labs Laboratory Tests Test 08/21/19 20:15 White Blood Count 7.9 x10^3/uL (4.0-11.0) Red Blood Count 4.50 x10^6/uL (4.30-5.70) Hemoglobin 13.1 g/dL (13.0-17.5) Hematocrit 39.1 % (39.0-53.0) Mean Corpuscular Volume 87 fL (79-100) Mean Corpuscular Hemoglobin 29 pg (25-35) Mean Corpuscular Hemoglobin Concent 33 g/dL (31-37) Red Cell Distribution Width 13.5 % (11.5-14.5) Platelet Count 333 x10^3/uL (140-400) Neutrophils (%) (Auto) 63 % (31-73) Lymphocytes (%) (Auto) 24 % (24-48) Monocytes (%) (Auto) 11 % (0-9) Eosinophils (%) (Auto) 2 % (0-3) Basophils (%) (Auto) 1 % (0-3) Neutrophils # (Auto) 4.9 x10^3/uL (1.8-7.7) Lymphocytes # (Auto) 1.9 x10^3/uL (1.0-4.8) Monocytes # (Auto) 0.8 x10^3/uL (0.0-1.1) Eosinophils # (Auto) 0.2 x10^3/uL (0.0-0.7) Basophils # (Auto) 0.1 x10^3/uL (0.0-0.2) Urine Collection Type Unknown Urine Color Yellow Urine Clarity Clear Urine pH 6.0 (<5.0-8.0) Urine Specific [place] 1.025 (1.000-1.030) Urine Protein Negative mg/dL (NEG-TRACE) Urine Glucose (UA) Negative mg/dL (NEG) Urine Ketones (Stick) Trace mg/dL (NEG) Urine Blood Negative (NEG) Urine Nitrite Negative (NEG) Urine Bilirubin Negative (NEG) Urine Urobilinogen Dipstick 0.2 mg/dL (0.2 mg/dL) Urine Leukocyte Esterase Negative (NEG) Urine RBC 0 /HPF (0-2) Urine WBC 0 /HPF (0-4) Urine Bacteria 0 /HPF (0-FEW) Urine Mucus Marked /LPF Sodium Level 143 mmol/L (136-145) Potassium Level 3.5 mmol/L (3.5-5.1) Chloride Level 103 mmol/L (98-107) Carbon Dioxide Level 36 mmol/L (21-32) Anion Gap 4 (6-14) Blood Urea Nitrogen 8 mg/dL (8-26) Creatinine 1.4 mg/dL (0.7-1.3) Estimated GFR (Cockcroft-Gault) 55.6 BUN/Creatinine Ratio 6 (6-20) Glucose Level 85 mg/dL (70-99) Calcium Level 8.4 mg/dL (8.5-10.1) Magnesium Level 2.1 mg/dL (1.8-2.4) Total Bilirubin 0.2 mg/dL (0.2-1.0) Aspartate Amino Transf (AST/SGOT) 10 U/L (15-37) Alanine Aminotransferase (ALT/SGPT) 16 U/L (16-63) Alkaline Phosphatase 80 U/L (46-116) Total Protein 5.9 g/dL (6.4-8.2) Albumin 2.9 g/dL (3.4-5.0) Albumin/Globulin Ratio 1.0 (1.0-1.7) Lipase 143 U/L (73-393) Laboratory Tests Test 08/21/19 20:15 White Blood Count 7.9 x10^3/uL (4.0-11.0) Red Blood Count 4.50 x10^6/uL (4.30-5.70) Hemoglobin 13.1 g/dL (13.0-17.5) Hematocrit 39.1 % (39.0-53.0) Mean Corpuscular Volume 87 fL (79-100) Mean Corpuscular Hemoglobin 29 pg (25-35) Mean Corpuscular Hemoglobin Concent 33 g/dL (31-37) Red Cell Distribution Width 13.5 % (11.5-14.5) Platelet Count 333 x10^3/uL (140-400) Neutrophils (%) (Auto) 63 % (31-73) Lymphocytes (%) (Auto) 24 % (24-48) Monocytes (%) (Auto) 11 % (0-9) Eosinophils (%) (Auto) 2 % (0-3) Basophils (%) (Auto) 1 % (0-3) Neutrophils # (Auto) 4.9 x10^3/uL (1.8-7.7) Lymphocytes # (Auto) 1.9 x10^3/uL (1.0-4.8) Monocytes # (Auto) 0.8 x10^3/uL (0.0-1.1) Eosinophils # (Auto) 0.2 x10^3/uL (0.0-0.7) Basophils # (Auto) 0.1 x10^3/uL (0.0-0.2) Urine Collection Type Unknown Urine Color Yellow Urine Clarity Clear Urine pH 6.0 (<5.0-8.0) Urine Specific [place] 1.025 (1.000-1.030) Urine Protein Negative mg/dL (NEG-TRACE) Urine Glucose (UA) Negative mg/dL (NEG) Urine Ketones (Stick) Trace mg/dL (NEG) Urine Blood Negative (NEG) Urine Nitrite Negative (NEG) Urine Bilirubin Negative (NEG) Urine Urobilinogen Dipstick 0.2 mg/dL (0.2 mg/dL) Urine Leukocyte Esterase Negative (NEG) Urine RBC 0 /HPF (0-2) Urine WBC 0 /HPF (0-4) Urine Bacteria 0 /HPF (0-FEW) Urine Mucus Marked /LPF Sodium Level 143 mmol/L (136-145) Potassium Level 3.5 mmol/L (3.5-5.1) Chloride Level 103 mmol/L (98-107) Carbon Dioxide Level 36 mmol/L (21-32) Anion Gap 4 (6-14) Blood Urea Nitrogen 8 mg/dL (8-26) Creatinine 1.4 mg/dL (0.7-1.3) Estimated GFR (Cockcroft-Gault) 55.6 BUN/Creatinine Ratio 6 (6-20) Glucose Level 85 mg/dL (70-99) Calcium Level 8.4 mg/dL (8.5-10.1) Magnesium Level 2.1 mg/dL (1.8-2.4) Total Bilirubin 0.2 mg/dL (0.2-1.0) Aspartate Amino Transf (AST/SGOT) 10 U/L (15-37) Alanine Aminotransferase (ALT/SGPT) 16 U/L (16-63) Alkaline Phosphatase 80 U/L (46-116) Total Protein 5.9 g/dL (6.4-8.2) Albumin 2.9 g/dL (3.4-5.0) Albumin/Globulin Ratio 1.0 (1.0-1.7) Lipase 143 U/L (73-393) Medications Current Medications Sodium Chloride 1,000 ml @ 1,000 mls/hr 1X ONCE IV Last administered on 08/21/19at 20:07; Start 08/21/19 at 18:30; Stop 08/21/19 at 19:29; Status DC Iohexol (Omnipaque 300 Mg/ml) 60 ml 1X ONCE IV Last administered on 08/21/19at 20:52; Start 08/21/19 at 20:45; Stop 08/21/19 at 20:46; Status DC Info (CONTRAST GIVEN -- Rx MONITORING) 1 each PRN DAILY PRN MC SEE COMMENTS; Start 08/21/19 at 20:45; Stop 08/23/19 at 20:44 Sodium Chloride 1,000 ml @ 75 mls/hr [id number] IV Last administered on 08/22/19at 09:54; Start 08/22/19 at 09:00 Active Scripts Active Ativan (Lorazepam) 1 Mg Tablet 1 Mg PO TID PRN Rosalie 5-325 Tablet (Acetaminophen/Hydrocodone Bitart) 1 Each Tablet 1 Tab PO Q6HRS PRN Reported Melatonin 5 Mg Tab.rapdis 1 Tab PO QHS 30 Days Famotidine 20 Mg Tablet 20 Mg PO HS Clobazam 10 Mg Tablet 10 Mg PO HS Levetiracetam 1,000 Mg Tablet 1,250 Mg PO BID Iron (Ferrous Sulfate) 325 Mg Tablet 325 Mg PO WEEKLY Docusate Sodium 100 Mg Tablet 100 Mg PO HS Tranxene T-Tab (Clorazepate Dipotassium) 3.75 Mg Tablet 3.75 Mg PO HS Senna (Sennosides) 8.6 Mg Tablet 8.6 Mg PO BID Ranitidine Hcl 150 Mg Tablet 150 Mg PO DAILY Trileptal (Oxcarbazepine) 300 Mg Tablet 600 Mg PO BID Polyethylene Glycol 3350 255 Gm Powder 17 Gm PO DAILY Vitals/I & O Vital Sign - Last 24 Hours 08/21/19 08/21/19 08/21/19 08/21/19 18:18 18:50 19:20 20:20 Temp 96.6 96.6 96.6 96.6 96.6 96.6 96.6 96.6 Pulse 100 97 84 88 Resp 18 17 17 14 B/P (MAP) 122/83 (96) 107/77 (87) 103/75 (84) 103/69 (80) Pulse Ox 97 97 96 97 O2 Delivery Room Air Room Air 08/21/19 08/21/19 08/21/19 08/21/19 20:50 22:00 22:30 23:00 Temp 96.6 96.6 96.6 96.6 96.6 96.6 96.6 96.6 Pulse 88 84 88 77 Resp 16 14 14 16 B/P (MAP) 107/77 (87) 106/70 (82) 106/74 (85) 104/67 (79) Pulse Ox 97 97 98 100 O2 Delivery Room Air Room Air Room Air 08/21/19 08/22/19 08/22/19 08/22/19 23:30 00:10 00:25 00:25 Temp 98.3 98.3 96.8 98.3 98.3 96.8 Pulse 78 80 82 Resp 15 16 18 B/P (MAP) 105/74 (84) 105/74 (84) 116/73 (87) Pulse Ox 96 98 95 O2 Delivery Room Air Room Air Room Air Room Air 08/22/19 08/22/19 08/22/19 08/22/19 03:27 07:00 08:20 11:06 Temp 98.3 98.0 98.2 98.3 98.0 98.2 Pulse 73 85 89 Resp 18 20 20 B/P (MAP) 125/75 (92) 105/72 (83) 117/87 (97) Pulse Ox 97 98 99 O2 Delivery Room Air Room Air Room Air Room Air Problem List Problems Medical Problems: (1) Acute renal insufficiency Status: Acute (2) Obstipation Status: Acute Assessment Constiaption- most likely multifactorial in etiology with flex sig during last stay unrevealing for left sided obstruction, amtiza will be resumed 24 mcg bid. 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 Justicifation of Admission Dx: Justifications for Admission: Justification of Admission Dx: Yes GURPREET VICTOR MD Aug 22, 2019 12:25
[2019-08-22] MEDS: LUBIPROSTONE 24 MCG CAPSULE PO SCH ×2 (12:30→17:30)
--- NOTE | 2019-08-22 12:49 | HP ---
ADMIT DATE: 08/21/2019 CHIEF COMPLAINT: Constipation. HISTORY OF PRESENT ILLNESS: The patient is a pleasant 44-year-old male who has cerebral palsy. He has a chronic problem with constipation. He lives in a residential. Caregivers were concerned that he has not had a bowel movement for 10 days. I discussed the case with ER physician. We admitted the patient. We consulted GI. 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 ALLERGIES: None. FAMILY HISTORY: Diabetes. SOCIAL HISTORY: He does not drink, smoke or take drugs. MEDICATIONS: Reviewed, please refer to the MRAD. REVIEW OF SYSTEMS: Unable to obtain. PHYSICAL EXAMINATION: VITALS: Within normal limits and are stable. GENERAL: No apparent distress. Alert and oriented. HEENT: Normal cephalic atraumatic, external auditory canals are patent EYES: Extraocular muscles are intact, pupils are equally round and reactive to light and accommodation MUSCULOSKELETAL: Well developed, well nourished, good range of motion ENDOCRINE: No thyromegaly was palpated LYMPHATICS: No cervical chain or axillary nodes were noted HEMATOPOIETIC: No bruising NECK: Supple, no JVD, no thyromegaly was noted. LUNGS: Clear to auscultation in all lung conley without rhonchi or wheezing. HEART: RRR, S1, S2 present. Peripheral pulses intact, no obvious murmurs were noted. ABDOMEN: Soft, nontender. Positive bowel sounds no organomegaly, normal bowel sounds. EXTREMITIES: Without any cyanosis, clubbing, or edema. Pedal pulses intact, Homans sign is negative. NEUROLOGIC: He is slightly contracted, not able to talk much. PSYCHIATRIC: Normal affect, normal mood. Stable. SKIN: No ulcerations or rashes, good skin turgor, no jaundice. VASCULAR: Good capillary refill, neurovascular bundle appears to be intact. LABORATORY DATA: Hematology was normal. Electrolytes essentially normal. ASSESSMENT AND PLAN: Acute on chronic constipation (the patient has not had a bowel movement for 10 days). The patient has been admitted. We will consult GI. Home meds, DVT prophylaxis. Full code. Trend labs. QUINCY GREGORIO DO DR: JESUS/venus JOB#: [id number] / [id number]
--- NOTE | 2019-08-22 13:11 | PDOC2 ---
CONSULT Date of Consult Date of Consult DATE: 08/22/19 TIME: 13:00 Reason for Consult Reason for Consult: Renal insufficiency Source Source: Chart review History of Present Illness Reason for Visit: Hx Obtained from Chart review- Patient is a 44 year old CM with pmh of cerebral palsy and decreased mentation at baseline who lives at a nursing home. Caregivers concerned that patient has not had a bowel movement in the last 10 days. Reports he has also had decreased appetite. Patient was recently admitted to [facility] and discharged on 08/10/19. Caregiver reports giving 6 doses of lactulose over the last 3 days without results. History of present illness limited due to patient's baseline mentation/ cerebral palsy. Per RN No CP, SOB.No N/V. Good UOP, No complaints by patient Past Medical History Past Medical History Chronic constipation, cerebral palsy, anemia,esophagitis, right eye surgery, hemiplegia, [employer] shunt, clavicle surgery, previous tobacco. Family History Family History Diabetes. Social History Social History He does not drink, smoke or take drugs. Current Problem List Problem List Problems Medical Problems: (1) Acute renal insufficiency Status: Acute (2) Obstipation Status: Acute Current Medications Current Medications Current Medications Sodium Chloride 1,000 ml @ 1,000 mls/hr 1X ONCE IV Last administered on 08/21/19at 20:07; Start 08/21/19 at 18:30; Stop 08/21/19 at 19:29; Status DC Iohexol (Omnipaque 300 Mg/ml) 60 ml 1X ONCE IV Last administered on 08/21/19at 20:52; Start 08/21/19 at 20:45; Stop 08/21/19 at 20:46; Status DC Info (CONTRAST GIVEN -- Rx MONITORING) 1 each PRN DAILY PRN MC SEE COMMENTS; Start 08/21/19 at 20:45; Stop 08/23/19 at 20:44 Sodium Chloride 1,000 ml @ 75 mls/hr [id number] IV Last administered on 08/22/19at 09:54; Start 08/22/19 at 09:00 Lubiprostone (Amitiza) 24 mcg BIDWMEALS PO ; Start 08/22/19 at 12:30 Active Scripts Active Ativan (Lorazepam) 1 Mg Tablet 1 Mg PO TID PRN [place] 5-325 Tablet (Acetaminophen/Hydrocodone Bitart) 1 Each Tablet 1 Tab PO Q6HRS PRN Reported Melatonin 5 Mg Tab.rapdis 1 Tab PO QHS 30 Days Famotidine 20 Mg Tablet 20 Mg PO HS Clobazam 10 Mg Tablet 10 Mg PO HS Levetiracetam 1,000 Mg Tablet 1,250 Mg PO BID Iron (Ferrous Sulfate) 325 Mg Tablet 325 Mg PO WEEKLY Docusate Sodium 100 Mg Tablet 100 Mg PO HS Tranxene T-Tab (Clorazepate Dipotassium) 3.75 Mg Tablet 3.75 Mg PO HS Senna (Sennosides) 8.6 Mg Tablet 8.6 Mg PO BID Ranitidine Hcl 150 Mg Tablet 150 Mg PO DAILY Trileptal (Oxcarbazepine) 300 Mg Tablet 600 Mg PO BID Polyethylene Glycol 3350 255 Gm Powder 17 Gm PO DAILY Allergies Allergies: Coded Allergies: No Known Drug Allergies (Unverified , 01/10/14) ROS Review of System Unable to obtain 2/2 Hx of Mental Retardation/Cerebral Palsy Physical Exam Physical Exam GENERAL: No apparent distress HEENT: Normal cephalic atraumatic,OM dryish NECK: Supple LUNGS: Clear to auscultation , Non labored HEART: RRR, S1, S2 present. ABDOMEN: Soft, nontender. EXTREMITIES: Without any cyanosis, clubbing, or edema. NEUROLOGIC: Hx of Mental retardation SKIN: No ulcerations or rashes, no jaundice. No folay Vital Signs Vital Signs Date Time Temp Pulse Resp B/P (MAP) Pulse Ox O2 Delivery O2 Flow Rate FiO2 08/22/19 11:06 98.2 89 20 117/87 (97) 99 Room Air 98.2 Assessment & Plan ALLA - suspect sec to dehydration E-Lytes stable, UA unremarkable , Kidneys Unremarkable on CT IVF, supportive care, strict I/O, Avoid nephrotoxins, Monitor Constipation- Per GI likely multifactorial in etiology flex sig during last stay unrevealing for left sided obstruction, Amtiza resumed by GI , other option is surgical diversion with colostomy long term acute care registered nurse. Labs Labs Laboratory Tests Test 08/21/19 20:15 White Blood Count 7.9 x10^3/uL (4.0-11.0) Red Blood Count 4.50 x10^6/uL (4.30-5.70) Hemoglobin 13.1 g/dL (13.0-17.5) Hematocrit 39.1 % (39.0-53.0) Mean Corpuscular Volume 87 fL (79-100) Mean Corpuscular Hemoglobin 29 pg (25-35) Mean Corpuscular Hemoglobin Concent 33 g/dL (31-37) Red Cell Distribution Width 13.5 % (11.5-14.5) Platelet Count 333 x10^3/uL (140-400) Neutrophils (%) (Auto) 63 % (31-73) Lymphocytes (%) (Auto) 24 % (24-48) Monocytes (%) (Auto) 11 % (0-9) Eosinophils (%) (Auto) 2 % (0-3) Basophils (%) (Auto) 1 % (0-3) Neutrophils # (Auto) 4.9 x10^3/uL (1.8-7.7) Lymphocytes # (Auto) 1.9 x10^3/uL (1.0-4.8) Monocytes # (Auto) 0.8 x10^3/uL (0.0-1.1) Eosinophils # (Auto) 0.2 x10^3/uL (0.0-0.7) Basophils # (Auto) 0.1 x10^3/uL (0.0-0.2) Urine Collection Type Unknown Urine Color Yellow Urine Clarity Clear Urine pH 6.0 (<5.0-8.0) Urine Specific [place] 1.025 (1.000-1.030) Urine Protein Negative mg/dL (NEG-TRACE) Urine Glucose (UA) Negative mg/dL (NEG) Urine Ketones (Stick) Trace mg/dL (NEG) Urine Blood Negative (NEG) Urine Nitrite Negative (NEG) Urine Bilirubin Negative (NEG) Urine Urobilinogen Dipstick 0.2 mg/dL (0.2 mg/dL) Urine Leukocyte Esterase Negative (NEG) Urine RBC 0 /HPF (0-2) Urine WBC 0 /HPF (0-4) Urine Bacteria 0 /HPF (0-FEW) Urine Mucus Marked /LPF Sodium Level 143 mmol/L (136-145) Potassium Level 3.5 mmol/L (3.5-5.1) Chloride Level 103 mmol/L (98-107) Carbon Dioxide Level 36 mmol/L (21-32) Anion Gap 4 (6-14) Blood Urea Nitrogen 8 mg/dL (8-26) Creatinine 1.4 mg/dL (0.7-1.3) Estimated GFR (Cockcroft-Gault) 55.6 BUN/Creatinine Ratio 6 (6-20) Glucose Level 85 mg/dL (70-99) Calcium Level 8.4 mg/dL (8.5-10.1) Magnesium Level 2.1 mg/dL (1.8-2.4) Total Bilirubin 0.2 mg/dL (0.2-1.0) Aspartate Amino Transf (AST/SGOT) 10 U/L (15-37) Alanine Aminotransferase (ALT/SGPT) 16 U/L (16-63) Alkaline Phosphatase 80 U/L (46-116) Total Protein 5.9 g/dL (6.4-8.2) Albumin 2.9 g/dL (3.4-5.0) Albumin/Globulin Ratio 1.0 (1.0-1.7) Lipase 143 U/L (73-393) Laboratory Tests Test 08/21/19 20:15 White Blood Count 7.9 x10^3/uL (4.0-11.0) Red Blood Count 4.50 x10^6/uL (4.30-5.70) Hemoglobin 13.1 g/dL (13.0-17.5) Hematocrit 39.1 % (39.0-53.0) Mean Corpuscular Volume 87 fL (79-100) Mean Corpuscular Hemoglobin 29 pg (25-35) Mean Corpuscular Hemoglobin Concent 33 g/dL (31-37) Red Cell Distribution Width 13.5 % (11.5-14.5) Platelet Count 333 x10^3/uL (140-400) Neutrophils (%) (Auto) 63 % (31-73) Lymphocytes (%) (Auto) 24 % (24-48) Monocytes (%) (Auto) 11 % (0-9) Eosinophils (%) (Auto) 2 % (0-3) Basophils (%) (Auto) 1 % (0-3) Neutrophils # (Auto) 4.9 x10^3/uL (1.8-7.7) Lymphocytes # (Auto) 1.9 x10^3/uL (1.0-4.8) Monocytes # (Auto) 0.8 x10^3/uL (0.0-1.1) Eosinophils # (Auto) 0.2 x10^3/uL (0.0-0.7) Basophils # (Auto) 0.1 x10^3/uL (0.0-0.2) Urine Collection Type Unknown Urine Color Yellow Urine Clarity Clear Urine pH 6.0 (<5.0-8.0) Urine Specific [place] 1.025 (1.000-1.030) Urine Protein Negative mg/dL (NEG-TRACE) Urine Glucose (UA) Negative mg/dL (NEG) Urine Ketones (Stick) Trace mg/dL (NEG) Urine Blood Negative (NEG) Urine Nitrite Negative (NEG) Urine Bilirubin Negative (NEG) Urine Urobilinogen Dipstick 0.2 mg/dL (0.2 mg/dL) Urine Leukocyte Esterase Negative (NEG) Urine RBC 0 /HPF (0-2) Urine WBC 0 /HPF (0-4) Urine Bacteria 0 /HPF (0-FEW) Urine Mucus Marked /LPF Sodium Level 143 mmol/L (136-145) Potassium Level 3.5 mmol/L (3.5-5.1) Chloride Level 103 mmol/L (98-107) Carbon Dioxide Level 36 mmol/L (21-32) Anion Gap 4 (6-14) Blood Urea Nitrogen 8 mg/dL (8-26) Creatinine 1.4 mg/dL (0.7-1.3) Estimated GFR (Cockcroft-Gault) 55.6 BUN/Creatinine Ratio 6 (6-20) Glucose Level 85 mg/dL (70-99) Calcium Level 8.4 mg/dL (8.5-10.1) Magnesium Level 2.1 mg/dL (1.8-2.4) Total Bilirubin 0.2 mg/dL (0.2-1.0) Aspartate Amino Transf (AST/SGOT) 10 U/L (15-37) Alanine Aminotransferase (ALT/SGPT) 16 U/L (16-63) Alkaline Phosphatase 80 U/L (46-116) Total Protein 5.9 g/dL (6.4-8.2) Albumin 2.9 g/dL (3.4-5.0) Albumin/Globulin Ratio 1.0 (1.0-1.7) Lipase 143 U/L (73-393) Review All relevant outside records, renal labs, imaging studies, telemetry/EKG's were reviewed. Images Images CT abdomen Lower chest: Decreased left lower lobe opacity. Resolved left pleural effusion. Small hiatal hernia. Abdomen and pelvis: Shunt catheter tubing noted, unchanged. The liver, spleen, adrenal glands, and pancreas are unremarkable. Cholelithiasis. Patent portal veins. Normal appearance the kidneys. No hydronephrosis. Rectal wall thickening, decreased compared to prior. Distended stool-filled colon. Normal appendix. No evidence of small bowel obstruction. No pathologic lymphadenopathy. No ascites. Small periumbilical fat-containing hernia. Bones: Dysplastic appearance of the right hip. Severe leftward curvature of the thoracolumbar spine. Impression: 1. Increased colonic distention and stool. 2. Decreased rectal wall thickening and adjacent inflammatory changes. 3. Cholelithiasis. 4. Small hiatal hernia. SANJIV TRACY MD Aug 22, 2019 13:11
[2019-08-23 03:00] VITALS: BP 135/88
--- NOTE | 2019-08-23 03:50 | NUR ---
Patient had seizure, MD notified. Orders for PRN seizure medication was given at that time and home meds restarted.
[2019-08-23 07:00] VITALS: BP 147/76
--- NOTE | 2019-08-23 07:23 | NUR ---
Patient had a mild 25 second seizure at shift change while giving report to oncoming nurse. RN attempted to administer IV ativan, but IV access was no longer working. MD notified and awaiting orders.
[2019-08-23 07:44] LABS: CALCIUM 7.7 mg/dL (8.5-10.1); CREATININE 1.2 mg/dL (0.7-1.3); GFR 66.4; POTASSIUM 3.8 mmol/L (3.5-5.1)
[2019-08-23] MEDS: levETIRAcetam 250 MG TABLET PO SCH ×2 (07:44→21:10)
[2019-08-23] MEDS: POLYETHYLENE GLYCOL 3350 17 GM PACKET. PO SCH (09:48)
[2019-08-23] MEDS: LUBIPROSTONE 24 MCG CAPSULE PO SCH ×2 (09:48→17:24)
[2019-08-23] MEDS: OXcarbazepine 300 MG TABLET PO SCH ×2 (09:48→21:10)
[2019-08-23] MEDS: SENNOSIDES 8.6 MG TABLET PO SCH ×2 (09:48→21:10)
[2019-08-23 11:00] VITALS: BP 113/86
[2019-08-23] MEDS ORDERED: levETIRAcetam 1,000 MG in IV DEXTROSE 5% 100ML 100 ML IV ONE (11:00)
[2019-08-23] MEDS: IV NORMAL SALINE 1000ML BAG 1,000 ML IV SCH (11:59)
--- NOTE | 2019-08-23 12:09 | PDOC ---
SUBJECTIVE ROS Stable OBJECTIVE Vital Signs Vital Signs Date Time Temp Pulse Resp B/P (MAP) Pulse Ox O2 Delivery O2 Flow Rate FiO2 08/23/19 11:00 99.0 120 18 113/86 (95) 92 Room Air 99.0 I & 0 Intake and Output 08/23/19 07:00 Intake Total 600 ml Balance 600 ml Intake Oral 600 ml # Voids 5 # Bowel Movements 2 PHYSICAL EXAM Physical Exam GENERAL: No apparent distress HEENT: Normal cephalic atraumatic,OM dryish NECK: Supple LUNGS: Clear to auscultation , Non labored HEART: RRR, S1, S2 present. ABDOMEN: Soft, nontender. EXTREMITIES: Without any cyanosis, clubbing, or edema. NEUROLOGIC: Hx of Mental retardation SKIN: No ulcerations or rashes, no jaundice. No folay DIAGNOSIS/ASSESSMENT Assessment & Plan ALLA - suspect sec to dehydration, improving E-Lytes stable, UA unremarkable , Kidneys Unremarkable on CT supportive care, strict I/O, Avoid nephrotoxins Constipation- Per GI likely multifactorial in etiology flex sig during last stay unrevealing for left sided obstruction, Amtiza resumed by GI , other option is surgical diversion with colostomy correction. COMMENT/RELEVANT DATA Meds Current Medications Medications (Trade) Dose Ordered Sig/Mynor Start Time Stop Time Status Last Admin Dose Admin Docusate Sodium (Colace) 100 mg QHS 08/23/19 21:00 Info (CONTRAST GIVEN -- Rx MONITORING) 1 each PRN DAILY PRN 08/21/19 20:45 08/23/19 20:44 Iohexol (Omnipaque 300 Mg/ml) 60 ml 1X ONCE 08/21/19 20:45 08/21/19 20:46 DC 08/21/19 20:52 60 ML Levetiracetam (Keppra) 1,250 mg BID 08/23/19 09:00 08/23/19 07:44 1,250 MG Levetiracetam 1000 mg/Dextrose 110 ml @ 440 mls/hr 1X ONCE 08/23/19 11:00 08/23/19 11:14 DC 08/23/19 11:14 440 MLS/HR Lorazepam (Ativan Inj) 2 mg PRN Q2HR PRN 08/23/19 08:00 Lubiprostone (Amitiza) 24 mcg BIDWMEALS 08/22/19 12:30 08/23/19 09:48 24 MCG Non-Formulary Medication (Clobazam ) 10 mg HS 08/23/19 21:00 UNV Non-Formulary Medication (Melatonin ) 1 tab QHS 08/23/19 21:00 UNV Oxcarbazepine (Trileptal) 600 mg BID 08/23/19 09:00 08/23/19 09:48 600 MG Polyethylene Glycol (miraLAX PACKET) 17 gm DAILY 08/23/19 09:00 08/23/19 09:48 17 GM Sennosides (Senna) 8.6 mg BID 08/23/19 09:00 08/23/19 09:48 8.6 MG Sodium Chloride 1,000 ml @ 75 mls/hr [id number] 08/22/19 09:00 08/23/19 11:59 75 MLS/HR Lab Laboratory Tests Test 08/23/19 06:05 Sodium Level 140 mmol/L (136-145) Potassium Level 3.8 mmol/L (3.5-5.1) Chloride Level 104 mmol/L (98-107) Carbon Dioxide Level 28 mmol/L (21-32) Anion Gap 8 (6-14) Blood Urea Nitrogen 13 mg/dL (8-26) Creatinine 1.2 mg/dL (0.7-1.3) Estimated GFR (Cockcroft-Gault) 66.4 Glucose Level 97 mg/dL (70-99) Calcium Level 7.7 mg/dL (8.5-10.1) Results All relevant outside records, renal labs, imaging studies, telemetry/EKG's were reviewed. Justicifation of Admission Dx: Justifications for Admission: Justification of Admission Dx: Yes SANJIV TRACY MD Aug 23, 2019 12:09
--- NOTE | 2019-08-23 12:17 | PDOC ---
[employer] PROGRESS NOTE Chief Complaint Chief Complaint Severe constipation Seizures Chronic constipation, cerebral palsy, anemia, esophagitis, right eye surgery, hemiplegia, [employer]ED [employer]IVING [employer]OR shunt, clavicle surgery, previous tobacco. History of Present Illness History of Present Illness 08/23/2019 Patient seen and examined (he had 2 or 3 small seizures this morning) Discussed with nurse Chart reviewed Vitals/I&O Vitals/I&O: Vital Signs Date Time Temp Pulse Resp B/P (MAP) Pulse Ox O2 Delivery O2 Flow Rate FiO2 08/23/19 11:00 99.0 120 18 113/86 (95) 92 Room Air 99.0 I & O 08/22/19 08/22/19 08/23/19 15:00 23:00 07:00 Intake Total 150 ml 450 ml Balance 150 ml 450 ml Physical Exam General: No acute distress, Other Heart: Regular rate Lungs: Clear, Other Abdomen: Normal bowel sounds Extremities: No clubbing Skin: No rashes Labs Labs: Laboratory Tests Test 08/23/19 06:05 Sodium Level 140 mmol/L (136-145) Potassium Level 3.8 mmol/L (3.5-5.1) Chloride Level 104 mmol/L (98-107) Carbon Dioxide Level 28 mmol/L (21-32) Anion Gap 8 (6-14) Blood Urea Nitrogen 13 mg/dL (8-26) Creatinine 1.2 mg/dL (0.7-1.3) Estimated GFR (Cockcroft-Gault) 66.4 Glucose Level 97 mg/dL (70-99) Calcium Level 7.7 mg/dL (8.5-10.1) Assessment and Plan Assessmemt and Plan Problems Medical Problems: (1) Acute renal insufficiency Status: Acute (2) Obstipation Status: Acute Severe constipation Recurrent seizures Chronic constipation, cerebral palsy, anemia, esophagitis, right eye surgery, hemiplegia, [employer]IV[employer] shunt, clavicle surgery, previous tobacco. Plan We will reload with 1 g of IV Keppra as he missed 2 doses yesterday PRN Zofran PRN Ativan Home meds DVT prophylaxis Full code Appreciate subspecialist input Comment Review of Relevant I have reviewed the following items sameer (where applicable) has been applied. Medications: Current Medications Medications (Trade) Dose Ordered Sig/[place]yn[place] Route PRN Reason Start Time Stop Time Status Last Admin Dose Admin Lubiprostone (Amitiza) 24 mcg BIDWMEALS PO 08/22/19 12:30 08/23/19 09:48 Oxcarbazepine (Trileptal) 600 mg BID PO 08/23/19 09:00 08/23/19 09:48 Polyethylene Glycol (miraLAX PACKET) 17 gm DAILY PO 08/23/19 09:00 08/23/19 09:48 Sennosides (Senna) 8.6 mg BID PO 08/23/19 09:00 08/23/19 09:48 Levetiracetam (Keppra) 1,250 mg BID PO 08/23/19 09:00 08/23/19 07:44 Lorazepam (Ativan Inj) 1 mg 1X ONCE IVP 08/23/19 04:00 08/23/19 04:01 DC 08/23/19 04:41 Lorazepam (Ativan Inj) 2 mg PRN Q8HRS PRN IM/IV SEIZURE ACTIVITY 08/23/19 07:45 08/23/19 07:52 Levetiracetam 1000 mg/Dextrose 110 ml @ 440 mls/hr 1X ONCE IV 08/23/19 11:00 08/23/19 11:14 DC 08/23/19 11:14 Justicifation of Admission Dx: Justifications for Admission: Justification of Admission Dx: Yes QUINCY GREGORIO III DO Aug 23, 2019 12:17
[2019-08-23 15:00] VITALS: BP 109/66
--- NOTE | 2019-08-23 15:38 | NUR ---
[facility] Lab drawn stat this am, prior to IV loading dose of 1 gram pt received. Results came back 5.5, therapeutic range is 12-46.
[2019-08-23 19:00] VITALS: BP 116/75
--- NOTE | 2019-08-23 19:18 | PDOC2 ---
NEUROLOGY CONSULT Date of Admission Date of Admission Full Report Dictated Patient is a 44-year-old with a generalized tonic-clonic seizure disorder for which she is on multiple anticonvulsants. I previously evaluated this patient March 24, 2017 when he had breakthrough seizures associated with a gastroente ritis. He has severe mental retardation with limited verbal skills. He has cerebral palsy affecting more the right side than the left. On this occasion he presented with chronic constipation. Inadvertently his Keppra was withheld. He has had no further seizures since he received a loading dose in his usual dose of Keppra. Further investigation and treatment is not indicated. DATE: 08/23/19 TIME: 19:15 Current Medications Current Medications Current Medications Sodium Chloride 1,000 ml @ 1,000 mls/hr 1X ONCE IV Last administered on 08/21/19at 20:07; Start 08/21/19 at 18:30; Stop 08/21/19 at 19:29; Status DC Iohexol (Omnipaque 300 Mg/ml) 60 ml 1X ONCE IV Last administered on 08/21/19at 20:52; Start 08/21/19 at 20:45; Stop 08/21/19 at 20:46; Status DC Info (CONTRAST GIVEN -- Rx MONITORING) 1 each PRN DAILY PRN MC SEE COMMENTS; Start 08/21/19 at 20:45; Stop 08/23/19 at 20:44 Sodium Chloride 1,000 ml @ 75 mls/hr [id number] IV Last administered on 08/23/19at 11:59; Start 08/22/19 at 09:00 Lubiprostone (Amitiza) 24 mcg BIDWMEALS PO Last administered on 08/23/19at 17:24; Start 08/22/19 at 12:30 Oxcarbazepine (Trileptal) 600 mg BID PO Last administered on 08/23/19at 09:48; Start 08/23/19 at 09:00 Polyethylene Glycol (miraLAX PACKET) 17 gm DAILY PO Last administered on 08/23/19at 09:48; Start 08/23/19 at 09:00 Sennosides (Senna) 8.6 mg BID PO Last administered on 08/23/19at 09:48; Start 08/23/19 at 09:00 Clonazepam (KlonoPIN) 0.5 mg QHS PO ; Start 08/23/19 at 21:00 Docusate Sodium (Colace) 100 mg QHS PO ; Start 08/23/19 at 21:00 Levetiracetam (Keppra) 1,250 mg BID PO Last administered on 08/23/19at 07:44; Start 08/23/19 at 09:00 Non-Formulary Medication (Melatonin ) 1 tab QHS PO ; Start 08/23/19 at 21:00; Status UNV Lorazepam (Ativan Inj) 2 mg PRN Q8HRS PRN IVP MODERATE SEIZURES; Start 08/23/19 at 03:45 Lorazepam (Ativan Inj) 3 mg PRN Q8HRS PRN IVP SEVERE SEIZURES; Start 08/23/19 at 03:45 Lorazepam (Ativan Inj) 1 mg 1X ONCE IVP Last administered on 08/23/19at 04:41; Start 08/23/19 at 04:00; Stop 08/23/19 at 04:01; Status DC Lorazepam (Ativan Inj) 2 mg PRN Q8HRS PRN IM/IV SEIZURE ACTIVITY Last administered on 08/23/19at 07:52; Start 08/23/19 at 07:45 Lorazepam (Ativan Inj) 2 mg PRN Q2HR PRN IM/IV SEE COMMENTS; Start 08/23/19 at 08:00 Levetiracetam 1000 mg/Dextrose 110 ml @ 440 mls/hr 1X ONCE IV Last administered on 08/23/19at 11:14; Start 08/23/19 at 11:00; Stop 08/23/19 at 11:14; Status DC Active Scripts Active Ativan (Lorazepam) 1 Mg Tablet 1 Mg PO TID PRN [place] 5-325 Tablet (Acetaminophen/Hydrocodone Bitart) 1 Each Tablet 1 Tab PO Q6HRS PRN Reported Melatonin 5 Mg Tab.rapdis 1 Tab PO QHS 30 Days Famotidine 20 Mg Tablet 20 Mg PO HS Clobazam 10 Mg Tablet 10 Mg PO HS Levetiracetam 1,000 Mg Tablet 1,250 Mg PO BID Iron (Ferrous Sulfate) 325 Mg Tablet 325 Mg PO WEEKLY Docusate Sodium 100 Mg Tablet 100 Mg PO HS Tranxene T-Tab (Clorazepate Dipotassium) 3.75 Mg Tablet 3.75 Mg PO HS Senna (Sennosides) 8.6 Mg Tablet 8.6 Mg PO BID Ranitidine Hcl 150 Mg Tablet 150 Mg PO DAILY Trileptal (Oxcarbazepine) 300 Mg Tablet 600 Mg PO BID Polyethylene Glycol 3350 255 Gm Powder 17 Gm PO DAILY Allergies Allergies: Coded Allergies: No Known Drug Allergies (Unverified , 01/10/14) Vitals VITALS Vital Signs Date Time Temp Pulse Resp B/P (MAP) Pulse Ox O2 Delivery O2 Flow Rate FiO2 08/23/19 15:00 99.1 126 18 109/66 (80) 93 99.1 08/23/19 11:00 Room Air Labs Labs Laboratory Tests Test 08/21/19 20:15 08/23/19 06:05 08/23/19 08:15 White Blood Count 7.9 x10^3/uL (4.0-11.0) Red Blood Count 4.50 x10^6/uL (4.30-5.70) Hemoglobin 13.1 g/dL (13.0-17.5) Hematocrit 39.1 % (39.0-53.0) Mean Corpuscular Volume 87 fL (79-100) Mean Corpuscular Hemoglobin 29 pg (25-35) Mean Corpuscular Hemoglobin Concent 33 g/dL (31-37) Red Cell Distribution Width 13.5 % (11.5-14.5) Platelet Count 333 x10^3/uL (140-400) Neutrophils (%) (Auto) 63 % (31-73) Lymphocytes (%) (Auto) 24 % (24-48) Monocytes (%) (Auto) 11 % (0-9) Eosinophils (%) (Auto) 2 % (0-3) Basophils (%) (Auto) 1 % (0-3) Neutrophils # (Auto) 4.9 x10^3/uL (1.8-7.7) Lymphocytes # (Auto) 1.9 x10^3/uL (1.0-4.8) Monocytes # (Auto) 0.8 x10^3/uL (0.0-1.1) Eosinophils # (Auto) 0.2 x10^3/uL (0.0-0.7) Basophils # (Auto) 0.1 x10^3/uL (0.0-0.2) Urine Collection Type Unknown Urine Color Yellow Urine Clarity Clear Urine pH 6.0 (<5.0-8.0) Urine Specific [place] 1.025 (1.000-1.030) Urine Protein Negative mg/dL (NEG-TRACE) Urine Glucose (UA) Negative mg/dL (NEG) Urine Ketones (Stick) Trace mg/dL (NEG) Urine Blood Negative (NEG) Urine Nitrite Negative (NEG) Urine Bilirubin Negative (NEG) Urine Urobilinogen Dipstick 0.2 mg/dL (0.2 mg/dL) Urine Leukocyte Esterase Negative (NEG) Urine RBC 0 /HPF (0-2) Urine WBC 0 /HPF (0-4) Urine Bacteria 0 /HPF (0-FEW) Urine Mucus Marked /LPF Sodium Level 143 mmol/L (136-145) 140 mmol/L (136-145) Potassium Level 3.5 mmol/L (3.5-5.1) 3.8 mmol/L (3.5-5.1) Chloride Level 103 mmol/L (98-107) 104 mmol/L (98-107) Carbon Dioxide Level 36 mmol/L (21-32) 28 mmol/L (21-32) Anion Gap 4 (6-14) 8 (6-14) Blood Urea Nitrogen 8 mg/dL (8-26) 13 mg/dL (8-26) Creatinine 1.4 mg/dL (0.7-1.3) 1.2 mg/dL (0.7-1.3) Estimated GFR (Cockcroft-Gault) 55.6 66.4 BUN/Creatinine Ratio 6 (6-20) Glucose Level 85 mg/dL (70-99) 97 mg/dL (70-99) Calcium Level 8.4 mg/dL (8.5-10.1) 7.7 mg/dL (8.5-10.1) Magnesium Level 2.1 mg/dL (1.8-2.4) Total Bilirubin 0.2 mg/dL (0.2-1.0) Aspartate Amino Transf (AST/SGOT) 10 U/L (15-37) Alanine Aminotransferase (ALT/SGPT) 16 U/L (16-63) Alkaline Phosphatase 80 U/L (46-116) Total Protein 5.9 g/dL (6.4-8.2) Albumin 2.9 g/dL (3.4-5.0) Albumin/Globulin Ratio 1.0 (1.0-1.7) Lipase 143 U/L (73-393) Special Test - Miscellaneous See separate report Laboratory Tests Test 08/23/19 06:05 08/23/19 08:15 Sodium Level 140 mmol/L (136-145) Potassium Level 3.8 mmol/L (3.5-5.1) Chloride Level 104 mmol/L (98-107) Carbon Dioxide Level 28 mmol/L (21-32) Anion Gap 8 (6-14) Blood Urea Nitrogen 13 mg/dL (8-26) Creatinine 1.2 mg/dL (0.7-1.3) Estimated GFR (Cockcroft-Gault) 66.4 Glucose Level 97 mg/dL (70-99) Calcium Level 7.7 mg/dL (8.5-10.1) Special Test - Miscellaneous See separate report MICHELE MORILLO MD Aug 23, 2019 19:17
[2019-08-23] MEDS ORDERED: NON FORMULARY ITEM (Melatonin 1 TAB) PO SCH (21:00)
[2019-08-23] MEDS: clonazePAM 0.5 MG TABLET PO SCH (21:10)
[2019-08-23] MEDS: DOCUSATE SODIUM 100 MG CAPSULE. PO SCH (21:10)
[2019-08-23 23:00] VITALS: BP 105/68
--- NOTE | 2019-08-23 23:50 | CONS ---
DATE OF CONSULTATION: 08/23/2019 REFERRING PHYSICIAN: Vitaly Avila DO REASON FOR CONSULTATION: Seizure and cerebral palsy. HISTORY OF PRESENT ILLNESS: The patient is a 44-year-old man who is a resident of a prison. He has cerebral palsy and seizure disorder. He has been admitted on occasions for breakthrough seizure. I evaluated him previously in 03/2017 when he had a gastroenteritis and was not absorbing his anticonvulsants. He presents on this occasion due to chronic constipation. He had not had a bowel movement in 10 days. His Keppra was inadvertently held for several dosages and he did have some small breakthrough events. Keppra was restarted and loaded. He has not had any further spells since the load and restarting of the Keppra. PAST MEDICAL HISTORY: 1. Chronic constipation. 2. Cerebral palsy. 3. Severe mental retardation. 4. Anemia. 5. History of esophagitis. 6. Generalized seizure disorder. 7. History of BASIC COMBATANT SWIMMER shunt placement. 8. History of clavicular fracture. ALLERGIES: No known allergies to drugs. MEDICATIONS PRIOR TO ADMISSION: Acetaminophen/hydrocodone every 6 hours as needed, ____ 10 mg at night, clorazepate 3.75 mg at night, Colace 100 mg at night, famotidine 20 mg at night, iron sulfate 325 mg, levetiracetam 1250 mg twice per day, lorazepam 1 mg 3 times per day as needed, melatonin 5 mg at night, oxcarbazepine 600 mg twice per day, MiraLax 17 grams daily, ranitidine, and senna 8.6 mg twice per day. FAMILY HISTORY: Pertinent for diabetes. SOCIAL HISTORY: Does not smoke tobacco, drink alcohol, or use recreational drugs. He is a long-term resident of a nursing care facility or prison. REVIEW OF SYSTEMS: Not obtainable. PHYSICAL EXAMINATION: VITAL SIGNS: The blood pressure was 109/66, pulse 126, respirations 18, temperature 99.1 degrees axillary. Oximetry was 93% on room air. NEUROLOGIC: He was sitting up in the bed, weighing on the left shoulder. He had a sandwich in his hand and the nurse was trying to get him to eat some food. He was resistant to eating. He was able to make some sounds and occasional sentences. He did state clearly that he wanted a donut. He did, however, not follow any commands of any kind. He was not combative and was generally pleasant. His eyes were open and closed and sometimes he fluttered his eyes. When held open, the corneas were very clouded and it looked like he did not see. The face appeared symmetric. The neck was not rigid. He did respond to loud noise. Muscle bulk was diminished. Tone was increased more on the right side than the left. He had movements on the left side of his body, but did not have much voluntary movement on the right. Tendon reflexes present in the upper extremities and at the knees. Toes were not up or downgoing. Coordination testing was not possible. Sensory exam was intact to noxious stimulation. Gait was not testable. NECK: Auscultation of the carotid arteries did not reveal a bruit. HEART: Rhythm was regular. EXTREMITIES: Peripheral pulses were symmetric in the hands and feet. There was no edema or cyanosis. LABORATORY RESULTS: CBC was performed 08/21/2019 revealing a normal white blood cell count, hemoglobin, hematocrit, and platelet count. Chemistries were performed 08/23/2019 revealing normal electrolytes, BUN, creatinine, and glucose. The GFR calculated at 66.4. Calcium was low at 7.7. Liver enzymes were not elevated. Lipase was not elevated. Urinalysis was performed 08/21/2019 revealing trace ketones, but was otherwise negative. Levetiracetam level was performed at [facility], but I do not see the actual result in the computer. DIAGNOSTIC RESULTS: A CT scan of the abdomen and pelvis was performed with IV contrast and revealed increased colonic distention and stool. There was decreased rectal wall thickening and adjacent inflammatory changes. There was cholelithiasis and a small hiatal hernia. IMPRESSION AND RECOMMENDATIONS: The patient is a 44-year-old man with a known seizure disorder. He did have some breakthrough seizures today, which have subsided with reinstitution of his Keppra. He is on a few different anticonvulsants. He seems to be approaching his baseline. I spoke with Dr. Avila earlier and suggested to give a loading dose as well as his usual dosage. He seems to have tolerated this without adverse effects. I would continue with his typical anticonvulsants. I appreciate being involved in his care. MICHELE MORILLO MD DR: CATRACHO/venus JOB#: [id number] / [id number]
[2019-08-24] MEDS: IV NORMAL SALINE 1000ML BAG 1,000 ML IV SCH ×2 (01:00→12:14)
[2019-08-24 03:00] VITALS: BP 125/77
[2019-08-24 07:12] VITALS: BP 121/83
--- NOTE | 2019-08-24 08:11 | PDOC ---
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 His Keppra was inadvertently held for several dosages and he did have some small breakthrough seizures as well. Keppra was restarted and loaded. Consults: Neurology 08/22: Patient seen and examined (he had 2 or 3 small seizures this morning) Afebrile overnight. His eyes appears comfortable. Per report had 2 bowel movement over the last 24 hours. CR improved from 1.4-1.2. Vitals Vitals Vital Signs Date Time Temp Pulse Resp B/P (MAP) Pulse Ox O2 Delivery O2 Flow Rate FiO2 08/24/19 07:12 97.6 86 16 121/83 (96) 99 Room Air 97.6 Physical Exam General: No acute distress, Other Heart: Regular rate Lungs: Clear, Other Abdomen: Normal bowel sounds Extremities: No clubbing Skin: No rashes Labs LABS Laboratory Tests Test 08/23/19 08:15 Special Test - Miscellaneous See separate report Assessment and Plan Assessmemt and Plan Problems Medical Problems: (1) Acute renal insufficiency Status: Acute (2) Obstipation Status: Acute Comment Review of Relevant I have reviewed the following items sameer (where applicable) has been applied. Labs Laboratory Tests Test 08/23/19 06:05 08/23/19 08:15 Sodium Level 140 mmol/L (136-145) Potassium Level 3.8 mmol/L (3.5-5.1) Chloride Level 104 mmol/L (98-107) Carbon Dioxide Level 28 mmol/L (21-32) Anion Gap 8 (6-14) Blood Urea Nitrogen 13 mg/dL (8-26) Creatinine 1.2 mg/dL (0.7-1.3) Estimated GFR (Cockcroft-Gault) 66.4 Glucose Level 97 mg/dL (70-99) Calcium Level 7.7 mg/dL (8.5-10.1) Special Test - Miscellaneous See separate report Laboratory Tests Test 08/23/19 08:15 Special Test - Miscellaneous See separate report Medications Current Medications Sodium Chloride 1,000 ml @ 1,000 mls/hr 1X ONCE IV Last administered on 08/21/19at 20:07; Start 08/21/19 at 18:30; Stop 08/21/19 at 19:29; Status DC Iohexol (Omnipaque 300 Mg/ml) 60 ml 1X ONCE IV Last administered on 08/21/19at 20:52; Start 08/21/19 at 20:45; Stop 08/21/19 at 20:46; Status DC Info (CONTRAST GIVEN -- Rx MONITORING) 1 each PRN DAILY PRN MC SEE COMMENTS; Start 08/21/19 at 20:45; Stop 08/23/19 at 20:44; Status DC Sodium Chloride 1,000 ml @ 75 mls/hr [id number] IV Last administered on 08/23/19at 11:59; Start 08/22/19 at 09:00 Lubiprostone (Amitiza) 24 mcg BIDWMEALS PO Last administered on 08/23/19at 17:24; Start 08/22/19 at 12:30 Oxcarbazepine (Trileptal) 600 mg BID PO Last administered on 08/23/19at 21:10; Start 08/23/19 at 09:00 Polyethylene Glycol (miraLAX PACKET) 17 gm DAILY PO Last administered on 08/23/19at 09:48; Start 08/23/19 at 09:00 Sennosides (Senna) 8.6 mg BID PO Last administered on 08/23/19at 21:10; Start 08/23/19 at 09:00 Clonazepam (KlonoPIN) 0.5 mg QHS PO Last administered on 08/23/19at 21:10; Start 08/23/19 at 21:00 Docusate Sodium (Colace) 100 mg QHS PO Last administered on 08/23/19at 21:10; Start 08/23/19 at 21:00 Levetiracetam (Keppra) 1,250 mg BID PO Last administered on 08/23/19at 21:10; Start 08/23/19 at 09:00 Non-Formulary Medication (Melatonin ) 1 tab QHS PO ; Start 08/23/19 at 21:00; Status UNV Lorazepam (Ativan Inj) 2 mg PRN Q8HRS PRN IVP MODERATE SEIZURES; Start 08/23/19 at 03:45 Lorazepam (Ativan Inj) 3 mg PRN Q8HRS PRN IVP SEVERE SEIZURES; Start 08/23/19 at 03:45 Lorazepam (Ativan Inj) 1 mg 1X ONCE IVP Last administered on 08/23/19at 04:41; Start 08/23/19 at 04:00; Stop 08/23/19 at 04:01; Status DC Lorazepam (Ativan Inj) 2 mg PRN Q8HRS PRN IM/IV SEIZURE ACTIVITY Last administered on 08/23/19at 07:52; Start 08/23/19 at 07:45 Lorazepam (Ativan Inj) 2 mg PRN Q2HR PRN IM/IV SEE COMMENTS; Start 08/23/19 at 08:00 Levetiracetam 1000 mg/Dextrose 110 ml @ 440 mls/hr 1X ONCE IV Last administered on 08/23/19at 11:14; Start 08/23/19 at 11:00; Stop 08/23/19 at 11:14; Status DC Active Scripts Active Ativan (Lorazepam) 1 Mg Tablet 1 Mg PO TID PRN [place] 5-325 Tablet (Acetaminophen/Hydrocodone Bitart) 1 Each Tablet 1 Tab PO Q6HRS PRN Reported Melatonin 5 Mg Tab.rapdis 1 Tab PO QHS 30 Days Famotidine 20 Mg Tablet 20 Mg PO HS Clobazam 10 Mg Tablet 10 Mg PO HS Levetiracetam 1,000 Mg Tablet 1,250 Mg PO BID Iron (Ferrous Sulfate) 325 Mg Tablet 325 Mg PO WEEKLY Docusate Sodium 100 Mg Tablet 100 Mg PO HS Tranxene T-Tab (Clorazepate Dipotassium) 3.75 Mg Tablet 3.75 Mg PO HS Senna (Sennosides) 8.6 Mg Tablet 8.6 Mg PO BID Ranitidine Hcl 150 Mg Tablet 150 Mg PO DAILY Trileptal (Oxcarbazepine) 300 Mg Tablet 600 Mg PO BID Polyethylene Glycol 3350 255 Gm Powder 17 Gm PO DAILY Vitals/I & O Vital Sign - Last 24 Hours 08/23/19 08/23/19 08/23/19 08/23/19 11:00 15:00 19:00 20:00 Temp 99.0 99.1 98.6 99.0 99.1 98.6 Pulse 120 126 135 Resp 18 18 18 B/P (MAP) 113/86 (95) 109/66 (80) 116/75 (89) Pulse Ox 92 93 93 O2 Delivery Room Air Room Air Room Air 08/23/19 08/24/19 08/24/19 23:00 03:00 07:12 Temp 99.5 99.1 97.6 99.5 99.1 97.6 Pulse 129 130 86 Resp 18 18 16 B/P (MAP) 105/68 (80) 125/77 (93) 121/83 (96) Pulse Ox 98 94 99 O2 Delivery Room Air Room Air Room Air Intake and Output 08/23/19 08/23/19 08/24/19 15:00 23:00 07:00 Intake Total 540 ml Balance 540 ml SHAQUILLE GUILLORY MD Aug 24, 2019 08:11
[2019-08-24] MEDS: SENNOSIDES 8.6 MG TABLET PO SCH ×2 (09:41→21:07)
[2019-08-24] MEDS: LUBIPROSTONE 24 MCG CAPSULE PO SCH ×2 (09:41→15:37)
[2019-08-24] MEDS: OXcarbazepine 300 MG TABLET PO SCH ×2 (09:41→21:07)
[2019-08-24] MEDS: POLYETHYLENE GLYCOL 3350 17 GM PACKET. PO SCH (09:41)
[2019-08-24] MEDS: levETIRAcetam 250 MG TABLET PO SCH ×2 (10:19→21:07)
[2019-08-24 10:45] VITALS: BP 125/91
--- NOTE | 2019-08-24 10:52 | PDOC ---
PROGRESS NOTES Assessment Problems Medical Problems: (1) Acute renal insufficiency Status: Acute (2) Obstipation Status: Acute Epilepsy, breakthrough seizure due to medical conditions, omission of levetiracetam History of cerebral palsy, severe intellectual disability, [facility] resident Gastroenteritis, constipation History of ventriculoperitoneal shunt Plan Continue levetiracetam and oxcarbazepine. Ativan PRN breakthrough seizure. Will follow [facility] Subjective None Objective Vital Signs Date Time Temp Pulse Resp B/P (MAP) Pulse Ox O2 Delivery O2 Flow Rate FiO2 08/24/19 10:45 98.6 145 17 125/91 (102) 96 Room Air 98.6 Intake and Output 08/24/19 07:00 Intake Total 540 ml Balance 540 ml Intake Oral 240 ml Blood Product IV Normal Saline Flush 300 ml # Voids 4 PHYSICAL EXAM Alert. Nonverbal, answers "yes" to questions PERRL. EOMI. CN: no focal findings. Muscle tone: spastic tone Muscle strength: does not move to command DTR: 1+ Plantar reflex: silent Gait: not examined in bed. Sensory exam: not cooperative Cerebellar: not cooperative Review of Relevant I have reviewed the following items sameer (where applicable) has been applied. Labs Laboratory Tests Test 08/23/19 06:05 08/23/19 08:15 Sodium Level 140 mmol/L (136-145) Potassium Level 3.8 mmol/L (3.5-5.1) Chloride Level 104 mmol/L (98-107) Carbon Dioxide Level 28 mmol/L (21-32) Anion Gap 8 (6-14) Blood Urea Nitrogen 13 mg/dL (8-26) Creatinine 1.2 mg/dL (0.7-1.3) Estimated GFR (Cockcroft-Gault) 66.4 Glucose Level 97 mg/dL (70-99) Calcium Level 7.7 mg/dL (8.5-10.1) Special Test - Miscellaneous See separate report Medications Current Medications Sodium Chloride 1,000 ml @ 1,000 mls/hr 1X ONCE IV Last administered on 08/21/19at 20:07; Start 08/21/19 at 18:30; Stop 08/21/19 at 19:29; Status DC Iohexol (Omnipaque 300 Mg/ml) 60 ml 1X ONCE IV Last administered on 08/21/19at 20:52; Start 08/21/19 at 20:45; Stop 08/21/19 at 20:46; Status DC Info (CONTRAST GIVEN -- Rx MONITORING) 1 each PRN DAILY PRN MC SEE COMMENTS; Start 08/21/19 at 20:45; Stop 08/23/19 at 20:44; Status DC Sodium Chloride 1,000 ml @ 75 mls/hr [id number] IV Last administered on 08/23/19at 11:59; Start 08/22/19 at 09:00 Lubiprostone (Amitiza) 24 mcg BIDWMEALS PO Last administered on 08/24/19at 09:41; Start 08/22/19 at 12:30 Oxcarbazepine (Trileptal) 600 mg BID PO Last administered on 08/24/19at 09:41; Start 08/23/19 at 09:00 Polyethylene Glycol (miraLAX PACKET) 17 gm DAILY PO Last administered on 08/24/19at 09:41; Start 08/23/19 at 09:00 Sennosides (Senna) 8.6 mg BID PO Last administered on 08/24/19at 09:41; Start 08/23/19 at 09:00 Clonazepam (KlonoPIN) 0.5 mg QHS PO Last administered on 08/23/19at 21:10; Start 08/23/19 at 21:00 Docusate Sodium (Colace) 100 mg QHS PO Last administered on 08/23/19at 21:10; Start 08/23/19 at 21:00 Levetiracetam (Keppra) 1,250 mg BID PO Last administered on 08/24/19at 10:19; Start 08/23/19 at 09:00 Non-Formulary Medication (Melatonin ) 1 tab QHS PO ; Start 08/23/19 at 21:00; Myra LEÓN Lorazepam (Ativan Inj) 2 mg PRN Q8HRS PRN IVP MODERATE SEIZURES; Start 08/23/19 at 03:45 Lorazepam (Ativan Inj) 3 mg PRN Q8HRS PRN IVP SEVERE SEIZURES; Start 08/23/19 at 03:45 Lorazepam (Ativan Inj) 1 mg 1X ONCE IVP Last administered on 08/23/19at 04:41; Start 08/23/19 at 04:00; Stop 08/23/19 at 04:01; Status DC Lorazepam (Ativan Inj) 2 mg PRN Q8HRS PRN IM/IV SEIZURE ACTIVITY Last administered on 08/23/19at 07:52; Start 08/23/19 at 07:45 Lorazepam (Ativan Inj) 2 mg PRN Q2HR PRN IM/IV SEE COMMENTS; Start 08/23/19 at 08:00 Levetiracetam 1000 mg/Dextrose 110 ml @ 440 mls/hr 1X ONCE IV Last administered on 08/23/19at 11:14; Start 08/23/19 at 11:00; Stop 08/23/19 at 11:14; Status DC Active Scripts Active Ativan (Lorazepam) 1 Mg Tablet 1 Mg PO TID PRN [place] 5-325 Tablet (Acetaminophen/Hydrocodone Bitart) 1 Each Tablet 1 Tab PO Q6HRS PRN Reported Melatonin 5 Mg Tab.rapdis 1 Tab PO QHS 30 Days Famotidine 20 Mg Tablet 20 Mg PO HS Clobazam 10 Mg Tablet 10 Mg PO HS Levetiracetam 1,000 Mg Tablet 1,250 Mg PO BID Iron (Ferrous Sulfate) 325 Mg Tablet 325 Mg PO WEEKLY Docusate Sodium 100 Mg Tablet 100 Mg PO HS Tranxene T-Tab (Clorazepate Dipotassium) 3.75 Mg Tablet 3.75 Mg PO HS Senna (Sennosides) 8.6 Mg Tablet 8.6 Mg PO BID Ranitidine Hcl 150 Mg Tablet 150 Mg PO DAILY Trileptal (Oxcarbazepine) 300 Mg Tablet 600 Mg PO BID Polyethylene Glycol 3350 255 Gm Powder 17 Gm PO DAILY Vitals/I & O Vital Sign - Last 24 Hours 08/23/19 08/23/19 08/23/19 08/23/19 11:00 15:00 19:00 20:00 Temp 99.0 99.1 98.6 99.0 99.1 98.6 Pulse 120 126 135 Resp 18 18 18 B/P (MAP) 113/86 (95) 109/66 (80) 116/75 (89) Pulse Ox 92 93 93 O2 Delivery Room Air Room Air Room Air 08/23/19 08/24/19 08/24/19 08/24/19 23:00 03:00 07:12 08:00 Temp 99.5 99.1 97.6 99.5 99.1 97.6 Pulse 129 130 86 Resp 18 18 16 B/P (MAP) 105/68 (80) 125/77 (93) 121/83 (96) Pulse Ox 98 94 99 O2 Delivery Room Air Room Air Room Air Room Air 08/24/19 10:45 Temp 98.6 98.6 Pulse 145 Resp 17 B/P (MAP) 125/91 (102) Pulse Ox 96 O2 Delivery Room Air Intake and Output 08/23/19 08/23/19 08/24/19 15:00 23:00 07:00 Intake Total 540 ml Balance 540 ml Justicifation of Admission Dx: Justifications for Admission: Justification of Admission Dx: Yes CHENTE HUGHES MD Aug 24, 2019 10:52
--- NOTE | 2019-08-24 12:12 | PDOC ---
Objective: Objective: D/w nurse and Dr. Dunn - has stooled twice, takes meds with applesauce, not eating much. Tmax 99.5 On Miralax, Amitiza, Metamucil, Colace, Senna. Vital Signs: Vital Signs Date Time Temp Pulse Resp B/P (MAP) Pulse Ox O2 Delivery O2 Flow Rate FiO2 08/24/19 10:45 98.6 145 17 125/91 (102) 96 Room Air 98.6 Imaging: CT A/P 08/20 Impression: 1. Increased colonic distention and stool. 2. Decreased rectal wall thickening and adjacent inflammatory changes. 3. Cholelithiasis. 4. Small hiatal hernia. PE: GEN: NAD - lung tray untouched LUNGS: CTAB HEART: tachycardic ABD: BS+, soft, non-tender NEURO/PSYCH: sitting up in bed, mumbling A/P: Constipation - now stooling -- Continue treatment for constipation long-term. Will review w/ Dr. Reyes re: ?past flex sig - I called office, not in chart and not scheduled - ?pursue as outpt as discussed last time Justicifation of Admission Dx: Justifications for Admission: Justification of Admission Dx: Yes MARTA CHAND Aug 24, 2019 12:12
--- NOTE | 2019-08-24 12:52 | NUR ---
SW following. Discussed with RN, pt is a resident at [facility] ([place] [phone]). Pt had two bowel movements within the last 24 hours. SW will continue to follow for return back to [facility].
[2019-08-24 14:32] VITALS: BP 100/67
[2019-08-24 19:00] VITALS: BP 102/80
[2019-08-24] MEDS ORDERED: PSYLLIUM HUSK (SUGAR FREE) 1 PKT PACKET PO SCH (21:00)
[2019-08-24] MEDS: DOCUSATE SODIUM 100 MG CAPSULE. PO SCH (21:07)
[2019-08-24] MEDS: clonazePAM 0.5 MG TABLET PO SCH (21:07)
[2019-08-24 23:00] VITALS: BP 103/74
[2019-08-25 03:00] VITALS: BP 97/59
[2019-08-25] MEDS: IV NORMAL SALINE 1000ML BAG 1,000 ML IV SCH (03:31)
[2019-08-25 07:00] VITALS: BP 103/61
[2019-08-25] MEDS: POLYETHYLENE GLYCOL 3350 17 GM PACKET. PO SCH (08:39)
[2019-08-25] MEDS: levETIRAcetam 250 MG TABLET PO SCH (08:40)
[2019-08-25] MEDS: LUBIPROSTONE 24 MCG CAPSULE PO SCH (08:40)
[2019-08-25] MEDS: SENNOSIDES 8.6 MG TABLET PO SCH (08:40)
[2019-08-25] MEDS: OXcarbazepine 300 MG TABLET PO SCH (08:41)
--- NOTE | 2019-08-25 08:54 | NUR ---
SW following. Discussed with RN, pt has had BM. RN and SW anticipating possible discharge back to [facility] residential. Awaiting confirmation and further plan of care from physician. SW will continue to follow. Addendum: 08/25/19 at 1047 by TOYA RANDLE Patient discharging back to residential today. RN phoning residential to advise of discharge. No further SW needs.
[2019-08-25] MEDS ORDERED: BISACODYL 10 MG SUPP.RECT. PR ONE (09:30)
[2019-08-25] MEDS ORDERED: BISACODYL 10 MG SUPP.RECT. PR PRN (09:30)
[2019-08-25] MEDS ORDERED: PSYL3.4P PO (09:37)
[2019-08-25] MEDS ORDERED: BISA10SU4 PR (09:37)
--- NOTE | 2019-08-25 09:38 | SNU/HH DC ---
DISCHARGE WITH HOME HEALTH DISCHARGE INFORMATION: Discharge Date: Aug 25, 2019 Final Diagnosis: Problems Medical Problems: (1) Acute renal insufficiency Status: Acute (2) Obstipation Status: Acute Condition on Discharge: Stable CODE STATUS: Code Status: Full HOME HEALTH: Face to Face: I certify this patient is under my care and that I, or a nurse practitioner or physician's assistant store manager sales working with me, had a face to face encounter that meets the physician face to face encounter requirements with this patient on 08/25/2019. Medical Complications: Other [facility] For: Assess & Educate Safety, Assess/Skilled Observatio, Bowel/Bladder Training, Medication Management RN For Eval/Treatment: Yes Home Health Aide For: Self-care DISTRICT OPERATIONS MANAGER For: Community Resources Pt Meets Homebound Status: Poor cognition, Psychological condition, Unable to negotiate home POST DISCHARGE ORDERS: Activity Instructions for Disc: Resume previous activity Weight Bearing Status after Di: As tolerated DIET AFTER DISCHARGE: Regular CHECKS AFTER DISCHARGE: Checks after discharge: Check blood press - daily TREATMENT/EQUIPMENT ORDERS: Adaptive Equipment Issued: None CERTIFICATION STATEMENT: Certification Statement: Certification Statement: Based on the above finding, I certify that this patient is confined to the home and needs intermittent shelter care, physical therapy and/or speech therapy, or continues to need occupational therapy.~ This patient is under my care, and I have initiated the establishment of the plan of care.~ This patient will be followed by myself or a community physician who will periodically review the plan of care. Home Meds Active Scripts Bisacodyl (BISACODYL) 10 Mg Supp.rect, 10 MG MS PRN DAILY PRN for CONSTIPATION for 30 Days, #30 SUPP.RECT Prov:SHAQUILLE GUILLORY MD 08/25/19 Psyllium Husk/Aspartame (METAMUCIL FIBER SINGLES PACKET) 3.4 Gm Powd.pack, 1 PKT PO QHS for Bowel consistency for 30 Days, #30 PKT 11 Refills Prov:SHAQUILLE GUILLORY MD 08/25/19 Reported Medications Melatonin (MELATONIN) 5 Mg Tab.rapdis, 1 TAB PO QHS for sleep for 30 Days, #30 TAB 0 Refills 08/22/19 Famotidine (FAMOTIDINE) 20 Mg Tablet, 20 MG PO HS for acid reflux, TAB 08/22/19 Clobazam (Clobazam) 10 Mg Tablet, 10 MG PO HS for seizures, TAB 08/22/19 Levetiracetam (LEVETIRACETAM) 1,000 Mg Tablet, 1250 MG PO BID for seizures, TAB 01/10/14 Docusate Sodium (DOCUSATE SODIUM) 100 Mg Tablet, 100 MG PO HS 01/10/14 Sennosides (SENNA) 8.6 Mg Tablet, 8.6 MG PO BID 01/10/14 Oxcarbazepine (TRILEPTAL) 300 Mg Tablet, 600 MG PO BID, #60 TAB 1 Refill 01/10/14 Polyethylene Glycol 3350 (POLYETHYLENE GLYCOL 3350) 255 Gm Powder, 17 GM PO DAILY, #527 GM 01/10/14 Discontinued Reported Medications Ferrous Sulfate (IRON) 325 Mg Tablet, 325 MG PO WEEKLY 01/10/14 Clorazepate Dipotassium (TRANXENE T-TAB) 3.75 Mg Tablet, 3.75 MG PO HS 01/10/14 Ranitidine Hcl (RANITIDINE HCL) 150 Mg Tablet, 150 MG PO DAILY, TAB 01/10/14 Discontinued Scripts Lorazepam (ATIVAN) 1 Mg Tablet, 1 MG PO TID PRN for AGITATION, #6 TAB Prov:ALINA GUTIÉRREZ MD 04/07/19 Hydrocodone/[place] 5-325 (NORCO 5-325 TABLET) 1 Each Tablet, 1 TAB PO Q6HRS PRN for PAIN, #20 TAB Prov:YVETTE WYNN APRN 11/25/16 SHAQUILLE GUILLORY MD Aug 25, 2019 09:38
--- NOTE | 2019-08-25 09:40 | PDOC ---
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 His Keppra was inadvertently held for several dosages and he did have some small breakthrough seizures as well. Keppra was restarted and loaded. Consults: Neurology 08/22: Patient seen and examined (he had 2 or 3 small seizures this morning) 08/23: Afebrile overnight. His eyes appears comfortable. Per report had 2 bowel movement over the last 24 hours. CR improved from 1.4-1.2. Eating better. Afebrile. No further seizures. Vitals Vitals Vital Signs Date Time Temp Pulse Resp B/P (MAP) Pulse Ox O2 Delivery O2 Flow Rate FiO2 08/25/19 07:36 Room Air 08/25/19 07:00 97.7 131 20 103/61 (75) 98 97.7 Physical Exam General: No acute distress, Other Heart: Regular rate Lungs: Clear, Other Abdomen: Normal bowel sounds Extremities: No clubbing Skin: No rashes Assessment and Plan Assessmemt and Plan Problems Medical Problems: (1) Acute renal insufficiency Status: Acute (2) Obstipation Status: Acute Comment Review of Relevant I have reviewed the following items sameer (where applicable) has been applied. Medications Current Medications Sodium Chloride 1,000 ml @ 1,000 mls/hr 1X ONCE IV Last administered on 08/21/19at 20:07; Start 08/21/19 at 18:30; Stop 08/21/19 at 19:29; Status DC Iohexol (Omnipaque 300 Mg/ml) 60 ml 1X ONCE IV Last administered on 08/21/19at 20:52; Start 08/21/19 at 20:45; Stop 08/21/19 at 20:46; Status DC Info (CONTRAST GIVEN -- Rx MONITORING) 1 each PRN DAILY PRN MC SEE COMMENTS; Start 08/21/19 at 20:45; Stop 08/23/19 at 20:44; Status DC Sodium Chloride 1,000 ml @ 75 mls/hr [id number] IV Last administered on 08/25/19at 03:31; Start 08/22/19 at 09:00 Lubiprostone (Amitiza) 24 mcg BIDWMEALS PO Last administered on 08/25/19at 08:40; Start 08/22/19 at 12:30 Oxcarbazepine (Trileptal) 600 mg BID PO Last administered on 08/25/19at 08:41; Start 08/23/19 at 09:00 Polyethylene Glycol (miraLAX PACKET) 17 gm DAILY PO Last administered on 08/25/19at 08:39; Start 08/23/19 at 09:00 Sennosides (Senna) 8.6 mg BID PO Last administered on 08/25/19at 08:40; Start 08/23/19 at 09:00 Clonazepam (KlonoPIN) 0.5 mg QHS PO Last administered on 08/24/19at 21:07; Start 08/23/19 at 21:00 Docusate Sodium (Colace) 100 mg QHS PO Last administered on 08/24/19at 21:07; Start 08/23/19 at 21:00 Levetiracetam (Keppra) 1,250 mg BID PO Last administered on 08/25/19at 08:40; Start 08/23/19 at 09:00 Non-Formulary Medication (Melatonin ) 1 tab QHS PO ; Start 08/23/19 at 21:00; Status UNV Lorazepam (Ativan Inj) 2 mg PRN Q8HRS PRN IVP MODERATE SEIZURES; Start 08/23/19 at 03:45 Lorazepam (Ativan Inj) 3 mg PRN Q8HRS PRN IVP SEVERE SEIZURES; Start 08/23/19 at 03:45 Lorazepam (Ativan Inj) 1 mg 1X ONCE IVP Last administered on 08/23/19at 04:41; Start 08/23/19 at 04:00; Stop 08/23/19 at 04:01; Status DC Lorazepam (Ativan Inj) 2 mg PRN Q8HRS PRN IM/IV SEIZURE ACTIVITY Last administered on 08/23/19at 07:52; Start 08/23/19 at 07:45 Lorazepam (Ativan Inj) 2 mg PRN Q2HR PRN IM/IV SEE COMMENTS; Start 08/23/19 at 08:00 Levetiracetam 1000 mg/Dextrose 110 ml @ 440 mls/hr 1X ONCE IV Last administered on 08/23/19at 11:14; Start 08/23/19 at 11:00; Stop 08/23/19 at 11:14; Status DC Psyllium Hydrophilic Mucilloid (Metamucil Fiber Packet) 1 pkt QHS PO Last administered on 08/24/19at 21:07; Start 08/24/19 at 21:00 Bisacodyl (Dulcolax Supp) 10 mg 1X ONCE NH ; Start 08/25/19 at 09:30; Stop 08/25/19 at 09:31; Status DC Bisacodyl (Dulcolax Supp) 10 mg PRN DAILY PRN [place] CONSTIPATION; Start 08/25/19 at 09:30 Active Scripts Active Bisacodyl 10 Mg Supp.rect 10 Mg [place] PRN DAILY PRN 30 Days Metamucil Fiber Singles Packet (Psyllium Husk/Aspartame) 3.4 Gm Powd.pack 1 Pkt PO QHS 30 Days Reported Melatonin 5 Mg Tab.rapdis 1 Tab PO QHS 30 Days Famotidine 20 Mg Tablet 20 Mg PO HS Clobazam 10 Mg Tablet 10 Mg PO HS Levetiracetam 1,000 Mg Tablet 1,250 Mg PO BID Docusate Sodium 100 Mg Tablet 100 Mg PO HS Senna (Sennosides) 8.6 Mg Tablet 8.6 Mg PO BID Trileptal (Oxcarbazepine) 300 Mg Tablet 600 Mg PO BID Polyethylene Glycol 3350 255 Gm Powder 17 Gm PO DAILY Vitals/I & O Vital Sign - Last 24 Hours 08/24/19 08/24/19 08/24/19 08/24/19 10:45 14:32 19:00 20:15 Temp 98.6 98.7 98.3 98.6 98.7 98.3 Pulse 145 122 124 Resp 17 16 20 B/P (MAP) 125/91 (102) 100/67 (78) 102/80 (87) Pulse Ox 96 94 O2 Delivery Room Air Room Air Room Air Room Air 08/24/19 08/25/19 08/25/19 08/25/19 23:00 03:00 07:00 07:36 Temp 98.5 98.0 97.7 98.5 98.0 97.7 Pulse 124 136 131 Resp B/P (MAP) 103/74 (84) 97/59 (72) 103/61 (75) Pulse Ox 92 95 98 O2 Delivery Room Air Room Air Room Air Room Air Intake and Output 08/24/19 08/24/19 08/25/19 15:00 23:00 07:00 Intake Total 125 ml 50 ml 0 ml Balance 125 ml 50 ml 0 ml Nutrition Consultation Dietary Evaluation: Recommendations by RD: Dietary education by RD, Increase Calorie Intake, Protein supplementation Comments: finger foods to help po intake ensure tid Expected Outcomes/Goals: to meet >75% est nutr needs Malnutrition Findings: Body Fat Depletion (Non Severe: Mod to Severe Weight Status: Appropriate SHAQUILLE GUILLORY MD Aug 25, 2019 09:40
--- NOTE | 2019-08-25 09:41 | PDOC3 ---
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 His Keppra was inadvertently held for several dosages and he did have some small breakthrough seizures as well. Keppra was restarted and loaded. Consults: Neurology 08/22: Patient seen and examined (he had 2 or 3 small seizures this morning) 08/23: Afebrile overnight. His eyes appears comfortable. Per report had 2 bowel movement over the last 24 hours. CR improved from 1.4-1.2. Eating better. Afebrile. No further seizures. 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 hemiplegia ALLA - likely vasomotor nephropathy with poor PO intake given constipation Greater than 30 minutes spent on d/c Discharge Information Condition at Discharge: Improved Follow Up: Weeks (1) Disposition/Orders: D/C to Home w/ HH (residential) Scheduled Clobazam (Clobazam) 10 Mg Tablet, 10 MG PO HS for seizures, (Reported) Entered as Reported by: MASON RAMÍREZ on 08/22/19522 Last Action: Converted on 08/23/19331 by KANDY SOMMER Docusate Sodium (Docusate Sodium) 100 Mg Tablet, 100 MG PO HS, (Reported) Entered as Reported by: AMALIA ESTEVES on 01/10/141956 Last Action: Converted on 08/23/19331 by KANDY SOMMER Famotidine (Famotidine) 20 Mg Tablet, 20 MG PO HS for acid reflux, (Reported) Entered as Reported by: MASON RAMÍREZ on 08/22/19522 Last Action: New Order on 08/22/19522 by MASON RAMÍREZ Levetiracetam (Levetiracetam) 1,000 Mg Tablet, 1,250 MG PO BID for seizures, (Reported) Entered as Reported by: AMALIA ESTEVES on 01/10/141956 Last Action: Converted on 08/23/19331 by KANDY SOMMER Melatonin (Melatonin) 5 Mg Tab.rapdis, 1 TAB PO QHS for sleep for 30 Days, #30 Ref 0 (Reported) Entered as Reported by: MASON RAMÍREZ on 08/22/19522 Last Action: Converted on 08/23/19331 by KANDY SOMMER Oxcarbazepine (Trileptal) 300 Mg Tablet, 600 MG PO BID, #60 Ref 1 (Reported) Entered as Reported by: AMALIA ESTEVES on 01/10/141956 Last Action: Continued on 08/23/19331 by KANDY SOMMER Polyethylene Glycol 3350 (Polyethylene Glycol 3350) 255 Gm Powder, 17 GM PO DAILY, #527 (Reported) Entered as Reported by: AMALIA ESTEVES on 01/10/141956 Last Action: Continued on 08/23/19331 by KANDY SOMMER Psyllium Husk/Aspartame (Metamucil Fiber Singles Packet) 3.4 Gm Powd.pack, 1 PKT PO QHS for Bowel consistency for 30 Days, #30 Ref 11 Prescribed by: SHAQUILLE GUILLORY MD on 08/25/19936 Sennosides (Senna) 8.6 Mg Tablet, 8.6 MG PO BID, (Reported) Entered as Reported by: AMALIA ESTEVES on 01/10/141956 Last Action: Continued on 08/23/19331 by KANDY SOMMER Scheduled PRN Bisacodyl (Bisacodyl) 10 Mg Supp.rect, [address] PRN DAILY PRN for CONSTIPATION for 30 Days, #30 Prescribed by: SHAQUILLE GUILLORY MD on 08/25/19936 Discontinued Medications Clorazepate Dipotassium (Tranxene T-Tab) 3.75 Mg Tablet, 3.75 MG PO HS, (Reported) Entered as Reported by: AMALIA ESTEVES on 01/10/141956 Ferrous Sulfate (Iron) 325 Mg Tablet, 325 MG PO WEEKLY, (Reported) Entered as Reported by: AMALIA ESTEVES on 01/10/141956 Hydrocodone/Apap 5-325 ([place] 5-325 Tablet) 1 Each Tablet, 1 TAB PO Q6HRS PRN for PAIN, #20 Prescribed by: Holley Bhatti APRN on 11/25/16 1518 Lorazepam (Ativan) 1 Mg Tablet, 1 MG PO TID PRN for AGITATION, #6 Prescribed by: ALINA GUTIÉRREZ MD on 04/07/19 1417 Ranitidine Hcl (Ranitidine Hcl) 150 Mg Tablet, 150 MG PO DAILY, (Reported) Entered as Reported by: AMALIA ESTEVES on 01/10/141956 Justicifation of Admission Dx: Justifications for Admission: Justification of Admission Dx: Yes SHAQUILLE GUILLORY MD Aug 25, 2019 09:41
--- NOTE | 2019-08-25 10:35 | PDOC ---
Subjective: Subjective: I asked if abdomen felt okay - he said "yeah." Objective: Vital Signs: Vital Signs Date Time Temp Pulse Resp B/P (MAP) Pulse Ox O2 Delivery O2 Flow Rate FiO2 08/25/19 07:36 Room Air 08/25/19 07:00 97.7 131 20 103/61 (75) 98 97.7 PE: GEN: NAD, sitting up in bed, breakfast tray untouched LUNGS: clear anteriorly HEART: tachycardic ABD: non-distended, soft, non-tender NEURO/PSYCH: awake A/P: Chronic constipation -- Note DC plans - okay per GI - continue constipation treatment as outpt, follow- up as needed. Justicifation of Admission Dx: Justifications for Admission: Justification of Admission Dx: Yes MARTA CHAND Aug 25, 2019 10:35
--- NOTE | 2019-08-25 10:48 | PDOC ---
PROGRESS NOTES Assessment Problems Medical Problems: (1) Acute renal insufficiency Status: Acute (2) Obstipation Status: Acute Epilepsy, breakthrough seizure due to medical conditions, omission of levetiracetam History of cerebral palsy, severe intellectual disability, long-term resident Gastroenteritis, constipation History of ventriculoperitoneal shunt Plan Continue levetiracetam and oxcarbazepine. Ativan PRN breakthrough seizure. Will follow Return to long-term when medically stable Subjective None Objective Vital Signs Date Time Temp Pulse Resp B/P (MAP) Pulse Ox O2 Delivery O2 Flow Rate FiO2 08/25/19 07:36 Room Air 08/25/19 07:00 97.7 131 20 103/61 (75) 98 97.7 Intake and Output 08/25/19 06:59 Intake Total 175 ml Balance 175 ml Intake Oral 175 ml # Voids 2 PHYSICAL EXAM Alert. Nonverbal, answers "yes" to questions PERRL. EOMI. CN: no focal findings. Muscle tone: spastic tone Muscle strength: does not move to command DTR: 1+ Plantar reflex: silent Gait: not examined in bed. Sensory exam: not cooperative Cerebellar: not cooperative Review of Relevant I have reviewed the following items sameer (where applicable) has been applied. Medications Current Medications Sodium Chloride 1,000 ml @ 1,000 mls/hr 1X ONCE IV Last administered on 08/21/19at 20:07; Start 08/21/19 at 18:30; Stop 08/21/19 at 19:29; Status DC Iohexol (Omnipaque 300 Mg/ml) 60 ml 1X ONCE IV Last administered on 08/21/19at 20:52; Start 08/21/19 at 20:45; Stop 08/21/19 at 20:46; Status DC Info (CONTRAST GIVEN -- Rx MONITORING) 1 each PRN DAILY PRN MC SEE COMMENTS; Start 08/21/19 at 20:45; Stop 08/23/19 at 20:44; Status DC Sodium Chloride 1,000 ml @ 75 mls/hr [id number] IV Last administered on 08/25/19at 03:31; Start 08/22/19 at 09:00 Lubiprostone (Amitiza) 24 mcg BIDWMEALS PO Last administered on 08/25/19at 08:40; Start 08/22/19 at 12:30 Oxcarbazepine (Trileptal) 600 mg BID PO Last administered on 08/25/19at 08:41; Start 08/23/19 at 09:00 Polyethylene Glycol (miraLAX PACKET) 17 gm DAILY PO Last administered on 08/25/19at 08:39; Start 08/23/19 at 09:00 Sennosides (Senna) 8.6 mg BID PO Last administered on 08/25/19at 08:40; Start 08/23/19 at 09:00 Clonazepam (KlonoPIN) 0.5 mg QHS PO Last administered on 08/24/19at 21:07; Start 08/23/19 at 21:00 Docusate Sodium (Colace) 100 mg QHS PO Last administered on 08/24/19at 21:07; Start 08/23/19 at 21:00 Levetiracetam (Keppra) 1,250 mg BID PO Last administered on 08/25/19at 08:40; Start 08/23/19 at 09:00 Non-Formulary Medication (Melatonin ) 1 tab QHS PO ; Start 08/23/19 at 21:00; Status UNV Lorazepam (Ativan Inj) 2 mg PRN Q8HRS PRN IVP MODERATE SEIZURES; Start 08/23/19 at 03:45 Lorazepam (Ativan Inj) 3 mg PRN Q8HRS PRN IVP SEVERE SEIZURES; Start 08/23/19 at 03:45 Lorazepam (Ativan Inj) 1 mg 1X ONCE IVP Last administered on 08/23/19at 04:41; Start 08/23/19 at 04:00; Stop 08/23/19 at 04:01; Status DC Lorazepam (Ativan Inj) 2 mg PRN Q8HRS PRN IM/IV SEIZURE ACTIVITY Last administered on 08/23/19at 07:52; Start 08/23/19 at 07:45 Lorazepam (Ativan Inj) 2 mg PRN Q2HR PRN IM/IV SEE COMMENTS; Start 08/23/19 at 08:00 Levetiracetam 1000 mg/Dextrose 110 ml @ 440 mls/hr 1X ONCE IV Last administered on 08/23/19at 11:14; Start 08/23/19 at 11:00; Stop 08/23/19 at 11:14; Status DC Psyllium Hydrophilic Mucilloid (Metamucil Fiber Packet) 1 pkt QHS PO Last administered on 08/24/19at 21:07; Start 08/24/19 at 21:00 Bisacodyl (Dulcolax Supp) 10 mg 1X ONCE [place] Last administered on 08/25/19at 09:30; Start 08/25/19 at 09:30; Stop 08/25/19 at 09:31; Status DC Bisacodyl (Dulcolax Supp) 10 mg PRN DAILY PRN [place] CONSTIPATION; Start 08/25/19 at 09:30 Active Scripts Active Bisacodyl 10 Mg Supp.rect 10 Mg [place] PRN DAILY PRN 30 Days Metamucil Fiber Singles Packet (Psyllium Husk/Aspartame) 3.4 Gm Powd.pack 1 Pkt PO QHS 30 Days Reported Melatonin 5 Mg Tab.rapdis 1 Tab PO QHS 30 Days Famotidine 20 Mg Tablet 20 Mg PO HS Clobazam 10 Mg Tablet 10 Mg PO HS Levetiracetam 1,000 Mg Tablet 1,250 Mg PO BID Docusate Sodium 100 Mg Tablet 100 Mg PO HS Senna (Sennosides) 8.6 Mg Tablet 8.6 Mg PO BID Trileptal (Oxcarbazepine) 300 Mg Tablet 600 Mg PO BID Polyethylene Glycol 3350 255 Gm Powder 17 Gm PO DAILY Vitals/I & O Vital Sign - Last 24 Hours 08/24/19 08/24/19 08/24/19 08/24/19 14:32 19:00 20:15 23:00 Temp 98.7 98.3 98.5 98.7 98.3 98.5 Pulse 122 124 124 Resp 16 20 20 B/P (MAP) 100/67 (78) 102/80 (87) 103/74 (84) Pulse Ox 94 92 O2 Delivery Room Air Room Air Room Air Room Air 08/25/19 08/25/19 08/25/19 03:00 07:00 07:36 Temp 98.0 97.7 98.0 97.7 Pulse 136 131 Resp 22 20 B/P (MAP) 97/59 (72) 103/61 (75) Pulse Ox 95 98 O2 Delivery Room Air Room Air Room Air Intake and Output 08/24/19 08/24/19 08/25/19 14:59 22:59 06:59 Intake Total 125 ml 50 ml 0 ml Balance 125 ml 50 ml 0 ml Justicifation of Admission Dx: Justifications for Admission: Justification of Admission Dx: Yes CHENTE HUGHES MD Aug 25, 2019 10:48
[2019-08-25 11:00] VITALS: BP 102/73
--- NOTE | 2019-08-25 13:45 | NUR ---
Discharge Note: ROBBY LAU Discharge instructions and discharge home medications reviewed with Other facility and a copy given. All questions have been answered and understanding verbalized. Report given to Malka at [facility]. The following instructions and handouts were given: information about plan of care, medications, follow up appointments, etc. Discontinued lines and drains: Midline in left upper arm removed and pressure dressing applied, catheter tip intact. Patient discharged to [facility] residential with transport, wheelchair used for mobility to discharge vehicle.
== END 2019-08-25 13:45 | disposition home or self-care (01) | DRG 100 ==
LOC: ER 17:31 → 4 NORTH 23:50
PROVIDERS: ADMIT Internal Medicine; ATTEND Internal Medicine
DX: G40.409 Other generalized epilepsy and epileptic syndromes, not intractable, without status epilepticus (principal); N17.0 Acute kidney failure with tubular necrosis; K56.609 Unspecified intestinal obstruction, unspecified as to partial versus complete obstruction; F72 Severe intellectual disabilities; K59.00 Constipation, unspecified; D64.9 Anemia, unspecified; G80.9 Cerebral palsy, unspecified; K20.9 Esophagitis, unspecified; K44.9 Diaphragmatic hernia without obstruction or gangrene; K80.20 Calculus of gallbladder without cholecystitis without obstruction; T40.2X5A Adverse effect of other opioids, initial encounter; Z83.3 Family history of diabetes mellitus; Z87.891 Personal history of nicotine dependence; Z98.2 Presence of cerebrospinal fluid drainage device
CPT/HCPCS: 36415; 36569; 74177; 80048; 80053; 81001; 83690; 83735; 85025; 96361; 96374; 99285; J1953; J2060; J7030; J7060; Q9967; G0378